=== PATIENT | male | born 1980 | race Caucasian/White ===

== ENCOUNTER 2016-11-05 21:50 | Observation (INO) | payer MEDICARE, MEDICAID ==
--- NOTE | 2016-11-05 22:40 | EDM.PDOC ---
ED HPI GENERAL MEDICAL PROBLEM - General Chief Complaint: General Stated Complaint: Redness in right leg fever headache Time Seen by Provider: 11/05/16 22:30 - History of Present Illness INITIAL COMMENTS - FREE TEXT/NARRATIVE: 36-year-old presents emergency room with a warm swollen right lower leg. This started Sunday night and has progressively gotten worse the patient has pimples on his legs he scratches on a regular basis. He has had some fevers at home but is unsure how high as they were not measured. The patient has noticed increased redness and swelling involving the right lower leg. He has not had any breathing difficulties or shortness of breath. 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 The patient is to be using compression hose on his lower extremities however he has not been doing this. Headache Pain Score (Numeric/FACES): 9 - Related Data Allergies Allergy/AdvReac Type Severity Reaction Status Date / Time carbetapentane citrate Allergy Other Verified 03/12/16 01:19 [From Gentex 30] egg yolk Allergy Other Verified 03/12/16 01:19 guaifenesin [From Gentex 30] Allergy Other Verified 03/12/16 01:19 kiwi Allergy Other Verified 03/12/16 01:19 phenylephrine HCl Allergy Other Verified 03/12/16 01:19 [From Gentex 30] strawberry Allergy Other Verified 03/12/16 01:19 "anesthesia" Allergy Other Uncoded 03/12/16 01:19 nuts Allergy Rectal Uncoded 03/12/16 01:20 Bleeding Home Meds: Home Meds Acetaminophen [Tylenol Extra Strength] 500 mg PO Q4H PRN 11/05/16 [History] Calcium Carbonate [Calcium] 600 mg PO BID 11/05/16 [History] Fish Oil/[place]-3 Fatty Acids [Fish Oil 1,000 MG] 1,000 mg PO BEDTIME 11/05/16 [ History] Fluticasone/Salmeterol [Advair 250-50 Diskus] 1 - 2 puff INH BID 11/05/16 [ History] Folic Acid 1 mg PO DAILY 11/05/16 [History] Levalbuterol Tartrate [Xopenex Hfa] 1 - 2 puff INH ASDIRECTED 11/05/16 [History] Losartan/Hydrochlorothiazide [Losartan-HCTZ 50-12.5 MG] 1 tab PO DAILY 11/05/16 [History] PARoxetine [Paxil] 20 mg PO DAILY 11/05/16 [History] Simethicone 125 mg PO ASDIRECTED 11/05/16 [History] Ubidecarenone [Coq10] 100 mg PO BEDTIME 11/05/16 [History] Past Medical History Cardiovascular History: Reports: Heart Murmur, High Cholesterol, Hypertension Respiratory History: Reports: Asthma Gastrointestinal History: Reports: Colon Polyp, Irritable Bowel Syndrome Psychiatric History: Reports: Anxiety Dermatologic History: Reports: Psoriasis - Infectious Disease History Infectious Disease History: Reports: Chicken Pox - Past Surgical History HEENT Surgical History: Reports: Adenoidectomy, Myringotomy w Tube(s) Social & Family History - Tobacco Use Smoking Status *Q: Never Smoker Second Hand Smoke Exposure: No - Caffeine Use Caffeine Use: Reports: Soda, Tea - Alcohol Use Days Per Week of Alcohol Use: 0 - Recreational Drug Use Recreational Drug Use: No ED ROS GENERAL - Review of Systems Review Of Systems: See Below Constitutional: Reports: Fever. Denies: Chills, Diaphoresis HEENT: Reports: No Symptoms Respiratory: Reports: No Symptoms Cardiovascular: Reports: No Symptoms GI/Abdominal: Reports: No Symptoms : Reports: No Symptoms ED EXAM, GENERAL - Physical Exam Exam: See Below Exam Limited By: No Limitations General Appearance: Alert, No Apparent Distress, Other (Morbidly obese) Head: Atraumatic, Normocephalic Neck: Normal Inspection, Supple, Non-Tender, Full Range of Motion. No: Lymphadenopathy (L), Lymphadenopathy (R) Respiratory/Chest: No Respiratory Distress, Lungs Clear, Normal Breath Sounds Cardiovascular: Regular Rate, Rhythm, Other (1+ pitting edema bilateral lower extremity) GI/Abdominal: Normal Bowel Sounds, Soft, Non-Tender Back Exam: Normal Inspection. No: CVA Tenderness (L), CVA Tenderness (R) Extremities: Other (Patient is morbidly obese with very large extremities he has 1+ pitting edema noted bilaterally in both lower legs the right leg has significant erythema multiple excoriations over what could have been inflamed follicles it is hard to know for sure no deep calf tenderness in the) Neurological: Alert, Oriented, No Motor/Sensory Deficits (Other than his Collazo's palsy) Course - Vital Signs Last Recorded V/S: Last Vital Signs Temp 36.6 C 11/05/16 22:04 Pulse 107 H 11/05/16 22:04 Resp 20 11/05/16 22:04 BP 123/74 11/05/16 22:04 Pulse Ox 95 11/05/16 22:04 - Orders/Labs/Meds Orders: Active Orders 24 hr Category Date Time Status VANCOMYCIN TROUGH [CHEM] Timed Lab 11/06/16 17:30 Ordered Vancomycin 1 gm Med 11/06/16 02:00 Active Vancomycin 500 mg Sodium Chloride 0.9% [Normal Saline] 500 ml IV Q8H Vancomycin Pharmacy to Dose [Pharmacy to Dose - Med 11/06/16 00:45 Pending Vancomycin] 1 dose .XX ASDIRECTED Medication Orders Vancomycin HCl 1 gm/Vancomycin HCl 500 mg/ Sodium Chloride 500 mls @ 333 mls/ hr IV Q8H [facility] Last Admin: 11/06/16 02:07 Dose: 333 mls/hr Vancomycin HCl (Pharmacy To Dose - Vancomycin) 1 dose .XX ASDIRECTED [facility] Labs: Laboratory Tests 11/05/16 11/05/16 Range/Units 23:18 23:18 WBC 22.15 H (4.23-9.07) K/mm3 RBC 4.69 (4.63-6.08) M/mm3 Hgb 13.9 (13.7-17.5) gm/L Hct 42.3 (40.1-51.0) % MCV 90.2 (79.0-92.2) fl MCH 29.6 (25.7-32.2) pg MCHC 32.9 (32.2-35.5) g/dl RDW Std Deviation 47.0 H (35.1-43.9) fL Plt Count 195 (163-337) K/mm3 MPV 9.5 (9.4-12.3) fl Neutrophils % (Manual) 88 H (40-60) % Band Neutrophils % 0 (0-10) % Lymphocytes % (Manual) 6 L (20-40) % Atypical Lymphs % 2 % Monocytes % (Manual) 4 (2-10) % Eosinophils % (Manual) 0 L (0.8-7.0) % Basophils % (Manual) 0 L (0.2-1.2) Platelet Estimate Adequate Plt Morphology Comment Normal Polychromasia 1+ slight Hypochromasia 1+ slight Poikilocytosis 1+ slight Anisocytosis 1+ slight Microcytosis 1+ slight Macrocytosis 1+ slight Tear Drop Cells 1+ slight RBC Morph Comment Abnormal Sodium 138 (136-145) mEq/L Potassium 3.5 (3.5-5.1) mEq/L Chloride 103 (98-107) mEq/L Carbon Dioxide 29 (21-32) mEq/L Anion Gap 9.5 (5-15) BUN 10 (7-18) mg/dL Creatinine 1.3 (0.7-1.3) mg/dL Est Cr Clr Drug Dosing 63.22 mL/min Estimated GFR (MDRD) > 60 (>60) mL/min BUN/Creatinine Ratio 7.7 L (14-18) Glucose 112 H (74-106) mg/dL Calcium 8.6 (8.5-10.1) mg/dL Total Bilirubin 0.6 (0.2-1.0) mg/dL AST 19 (15-37) U/L ALT 30 (16-63) U/L Alkaline Phosphatase 59 (46-116) U/L Total Protein 7.3 (6.4-8.2) g/dl Albumin 2.9 L (3.4-5.0) g/dl Globulin 4.4 gm/dL Albumin/Globulin Ratio 0.7 L (1-2) Meds: Medications Generic Name Dose Route Start Last Admin Trade Name Freq PRN Reason Stop Dose Admin Vancomycin HCl 1 gm/ 500 mls @ 333 mls/hr 11/06/16 02:00 11/06/16 02:07 Vancomycin HCl 500 mg/ Sodium IV 333 mls/hr Chloride Q8H BECK Administration Vancomycin HCl 1 dose 11/06/16 00:45 Pharmacy To Dose - Vancomycin .XX ASDIRECTED BECK Discontinued Medications Generic Name Dose Route Start Last Admin Trade Name Freq PRN Reason Stop Dose Admin Sodium Chloride Confirm 11/06/16 01:44 11/06/16 02:08 Normal Saline Administered 11/06/16 01:45 Not Given Dose 250 mls @ as directed .ROUTE .STK-MED ONE Ondansetron HCl 4 mg 11/06/16 01:51 11/06/16 02:06 Zofran IVPUSH 11/06/16 01:52 4 mg ONETIME ONE Administration Vancomycin HCl Confirm 11/06/16 01:42 11/06/16 02:08 Vancocin Administered 11/06/16 01:43 Not Given Dose 1 gm .ROUTE .STK-MED ONE - Re-Assessments/Exams Free Text/Narrative Re-Assessment/Exam: 11/06/16 02:00 Patient will be placed on observation, reviewed with . I attempted to see if every 24 dosing of the vancomycin would be practical pharmacy recommended 8 hour dosing. Departure - Departure Time of Disposition: 02:51 Disposition: Refer to Observation Clinical Impression: Cellulitis of right leg - Discharge Information Forms: ED Department Discharge - My Orders Last 24 Hours: My Active Orders 11/06/16 00:45 Vancomycin Pharmacy to Dose [Pharmacy to Dose - Vancomycin] 1 dose .XX ASDIRECTED 11/06/16 02:00 Vancomycin 1 gm Vancomycin 500 mg Sodium Chloride 0.9% [Normal Saline] 500 ml IV Q8H - Assessment/Plan Last 24 Hours: My Active Orders 11/06/16 00:45 Vancomycin Pharmacy to Dose [Pharmacy to Dose - Vancomycin] 1 dose .XX ASDIRECTED 11/06/16 02:00 Vancomycin 1 gm Vancomycin 500 mg Sodium Chloride 0.9% [Normal Saline] 500 ml IV Q8H
[2016-11-06] MEDS ORDERED: Vancomycin 1 GM AdvVial ONE (01:42)
[2016-11-06] MEDS ORDERED: Sodium Chloride 0.9% 250 ML ONE (01:44)
[2016-11-06] MEDS ORDERED: Ondansetron 4 MG/2 ML SDV IVPUSH ONE (01:51)
[2016-11-06] MEDS ORDERED: Vancomycin 1500 MG in Sodium Chloride 0.9% 500 ML IV SCH ×3 (02:00)
[2016-11-06] MEDS ORDERED: Acetaminophen 325 MG Tab PO ONE (02:59)
[2016-11-06] MEDS ORDERED: Ondansetron 4 MG/2 ML SDV IVPUSH PRN (03:59)
[2016-11-06] MEDS: Sodium Chloride 0.9% 1,000 ML IV SCH ×2 (04:12→18:00)
[2016-11-06] MEDS ORDERED: Acetaminophen 325 MG Tab PO PRN (04:19)
--- NOTE | 2016-11-06 06:35 | PCM.HP ---
H&P History of Present Illness - General Date of Service: 11/06/16 Admit Problem/Dx: SSTI/Cellulitis Source of Information: Patient, Provider, RN Notes Reviewed History Limitations: Reports: No Limitations - History of Present Illness Initial Comments - Free Text/Narative: This is a 36-year-old morbidly obese white male with past medical history of hypertension, hyperlipidemia, asthma, history of colonic polyp, irritable bowel syndrome, anxiety, psoriasis, and history of Collazo's palsy who comes in with worsening right lower leg edema and erythema. His symptoms started last Sunday night and have progressively gotten worse. Patient has multiple coin-like lesions on both lower extremity. He picks on it a regular basis. He admits to some subjective fever without chills. He denies any systemic symptoms. 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 His initial workup in the emergency department shows a CBC remarkable for WBC of 22.15 and neutrophils of 88%. His chemistry is remarkable for glucose of 112 and albumin of 2.9. Patient received initial treatment in the emergency department before he was sent to the floor for further treatment. He was admitted overnight under OBS for medical management of skin-soft tissue infection. Headache Pain Score (Numeric/FACES): 9 - Related Data Allergies/Adverse Reactions: Allergies Allergy/AdvReac Type Severity Reaction Status Date / Time carbetapentane citrate Allergy Other Verified 03/12/16 01:19 [From Gentex 30] egg yolk Allergy Other Verified 03/12/16 01:19 Fish Containing Products Allergy Other Verified 11/06/16 04:38 guaifenesin [From Gentex 30] Allergy Other Verified 03/12/16 01:19 kiwi Allergy Other Verified 03/12/16 01:19 phenylephrine HCl Allergy Other Verified 03/12/16 01:19 [From Gentex 30] pineapple Allergy Difficulty Verified 11/06/16 04:38 Breathing strawberry Allergy Other Verified 03/12/16 01:19 "anesthesia" Allergy Other Uncoded 03/12/16 01:19 gentamycin Allergy Other Uncoded 11/06/16 04:38 nuts Allergy Rectal Uncoded 03/12/16 01:20 Bleeding red/blue/green coloring Allergy Other Uncoded 11/06/16 04:38 Home Medications: Home Meds Acetaminophen [Tylenol Extra Strength] 500 mg PO Q4H PRN 11/05/16 [History] Calcium Carbonate [Calcium] 600 mg PO BID 11/05/16 [History] Fish Oil/[place]-3 Fatty Acids [Fish Oil 1,000 MG] 1,000 mg PO BEDTIME 11/05/16 [ History] Fluticasone/Salmeterol [Advair 250-50 Diskus] 1 - 2 puff INH BID 11/05/16 [ History] Folic Acid 1 mg PO DAILY 11/05/16 [History] Levalbuterol Tartrate [Xopenex Hfa] 1 - 2 puff INH ASDIRECTED 11/05/16 [History] Losartan/Hydrochlorothiazide [Losartan-HCTZ 50-12.5 MG] 1 tab PO DAILY 11/05/16 [History] PARoxetine [Paxil] 20 mg PO DAILY 11/05/16 [History] Simethicone 125 mg PO ASDIRECTED 11/05/16 [History] Ubidecarenone [Coq10] 100 mg PO BEDTIME 11/05/16 [History] Cholecalciferol (Vitamin D3) [Vitamin D] 50,000 units PO WEEKLY 11/06/16 [ History] Docusate Sodium [Colace] 100 mg PO BID 11/06/16 [History] Omeprazole 20 mg PO DAILY 11/06/16 [History] Past Medical History Cardiovascular History: Reports: Heart Murmur, High Cholesterol, Hypertension Respiratory History: Reports: Asthma Gastrointestinal History: Reports: Colon Polyp, Irritable Bowel Syndrome Psychiatric History: Reports: Anxiety Dermatologic History: Reports: Psoriasis - Infectious Disease History Infectious Disease History: Reports: Chicken Pox - Past Surgical History HEENT Surgical History: Reports: Adenoidectomy, Myringotomy w Tube(s), Other ( See Below) Other HEENT Surgeries/Procedures: reconstructive ear surgeries and wisdom teeth removal GI Surgical History: Reports: None Dermatological Surgical History: Reports: None Social & Family History - Family History Family Medical History: Noncontributory - Tobacco Use Smoking Status *Q: Never Smoker Second Hand Smoke Exposure: No - Caffeine Use Caffeine Use: Reports: Soda, Tea Other Caffeine Use: on occassion pop - Alcohol Use Days Per Week of Alcohol Use: 0 - Recreational Drug Use Recreational Drug Use: No H&P Review of Systems - Review of Systems: Review Of Systems: See Below General: Reports: Fever. Denies: Chills, Weakness HEENT: Reports: No Symptoms Pulmonary: Denies: Shortness of Breath Cardiovascular: Denies: Chest Pain Gastrointestinal: Denies: Abdominal Pain, Nausea, Vomiting Genitourinary: Reports: No Symptoms Musculoskeletal: Reports: No Symptoms Skin: Reports: Rash, Erythema, Lesions Psychiatric: Denies: Confusion, Depression, Anxiety, Hallucinations, Suicidal Ideation Neurological: Reports: Confusion. Denies: Difficulty Walking, Weakness, Gait Disturbance Hematologic/Lymphatic: Reports: No Symptoms Immunologic: Reports: No Symptoms Exam - Exam Exam: See Below - Vital Signs Vital Signs: Last Vital Signs Temp 36.9 C 11/06/16 04:06 Pulse 89 11/06/16 04:06 Resp 20 11/06/16 04:06 BP 127/72 11/06/16 04:06 Pulse Ox 94 L 11/06/16 04:06 Weight: 166.559 kg - Exam General: Alert, Oriented, Cooperative, Other (Morbidly Obese). No: Mild Distress HEENT: Conjunctiva Clear, EACs Clear, EOMI, Hearing Intact, Mucosa Moist & [place] , Nares Patent, Normal Nasal Septum, Posterior Pharynx Clear, Pupils Equal, Pupils Reactive Neck: Supple, Trachea Midline, Full Range of Motion, Other (short and thick) Lungs: Clear to Auscultation, Normal Respiratory Effort Cardiovascular: Regular Rate, Regular Rhythm Abdomen: Normal Bowel Sounds, Soft. No: Organomegaly, Tenderness (Male) Exam: Deferred Rectal (Males) Exam: Deferred Back Exam: Normal Inspection, Decreased Range of Motion Extremities: Normal Pulses, Edema (mild), Increased Warmth. No: Clubbing, Cyanosis, Calf Tenderness Peripheral Pulses: 2+: Posterior Tibial (L), Posterior Tibial (R), Dorsalis Pedis (L), Dorsalis Pedis (R) Skin: Warm, Dry, Intact, Rash, Other (no obvious open wounds) Skin Alteration Location (Drawings Not To Scale): 1 - erythema, excoriations, and multiple coin size lesions 2 - erythema, excoriations, and multiple coin size lesions Neuro Extensive - Mental Status: Normal Cognition, Memory Intact Neuro Extensive - Motor, Sensory, Reflexes: CN II-XII Intact (limited but intact ), Abnormal Gait Psychiatric: Alert, Normal Affect, Normal Mood - Patient Data Result Diagrams: 11/06/16 07:05 11/06/16 07:05 *Q Meaningful Use (ADM) - VTE *Q VTE Criteria *Q: - Stroke *Q Stroke Criteria *Q: - AMI *Q AMI Criteria *Q: Problem List Initiated/Reviewed/Updated: Yes Orders Last 24hrs: Active Orders 24 hr Category Date Time Status RT Post Treatment Assessment [RC] Click To Edit Care 11/06/16 04:20 Hold RT Pre-Treatment Assessment [RC] Click To Edit Care 11/06/16 04:20 Hold Up With Assistance [RC] CONTINUOUS Care 11/06/16 03:52 Active Clear Liquid Diet [DIET] Diet 11/06/16 Breakfast Active Acetaminophen [Tylenol] Med 11/06/16 04:19 Active 975 mg PO Q6H PRN Fluticasone/Salmeterol [Advair Diskus 250-50] Med 11/06/16 09:00 Active 1 puff INH BID Non-Formulary Medication [NF Drug] Med 11/06/16 09:00 Active 1 each PO DAILY Ondansetron [Zofran] Med 11/06/16 03:59 Active 4 mg IVPUSH Q4HR PRN PARoxetine [Paxil] Med 11/06/16 09:00 Active 20 mg PO DAILY Sodium Chloride 0.9% [Normal Saline] 1,000 ml Med 11/06/16 04:00 Active IV ASDIRECTED Heat Therapy [OM.PC] Routine Oth 11/06/16 03:53 Ordered Resuscitation Status Routine Resus Stat 11/06/16 03:51 Ordered Medication Orders Acetaminophen (Tylenol) 975 mg PO Q6H PRN PRN Reason: Pain (moderate 4-6) Sodium Chloride (Normal Saline) 1,000 mls @ 75 mls/hr IV ASDIRECTED BECK Last Admin: 11/06/16 04:12 Dose: 75 mls/hr Losartan/Hctz 50-12. (5mg Pt Own) 1 each PO DAILY BECK Ondansetron HCl (Zofran) 4 mg IVPUSH Q4HR PRN PRN Reason: Nausea/Vomiting Paroxetine HCl (Paxil) 20 mg PO DAILY [facility] Fluticasone/Salmeterol (Advair Diskus 250-50) 1 puff INH BID BECK Vancomycin HCl (Pharmacy To Dose - Vancomycin) 1 dose .XX ASDIRECTED [facility] Assessment/Plan Comment:: Assessment/Plan: Acute: Right Lower Leg SST/Cellulitis - Supportive Care - IV Vancomycin 1 gram TID for pharmacy to dose Leukocytosis - WBC is 22.15 ---> 19.50 - CRP 34.1 Hypokalemia - K 3.3 likely from inadequate intake Hyperglycemia - Will screen for DM Morbidly Obese - BMI 65 - TFT today - Dietary consult for weight management Chronic: HTN HLD Asthma Colonic Polyp IBS Anxiety Psoriasis 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
[2016-11-06] MEDS ORDERED: Albuterol/Ipratropium 3.0-0.5 MG/3 ML Neb Soln NEB PRN (06:39)
[2016-11-06] MEDS ORDERED: Docusate Sodium 100 MG Cap PO PRN (06:39)
[2016-11-06] MEDS ORDERED: Polyethylene Glycol 3350 Powder 17 GM Packet PO PRN (06:39)
[2016-11-06] MEDS ORDERED: LORazepam 2 MG/ML MDV IV PRN (06:39)
[2016-11-06] MEDS ORDERED: Promethazine 12.5 MG in Sodium Chloride 0.9% 50 ML IV PRN (06:39)
[2016-11-06] MEDS ORDERED: HYDROmorphone 1 MG/ML Syringe IVPUSH PRN (06:39)
[2016-11-06] MEDS ORDERED: Temazepam 15 MG Cap PO PRN (06:39)
[2016-11-06] MEDS ORDERED: Ondansetron 4 MG/2 ML SDV IV PRN (06:39)
[2016-11-06] MEDS ORDERED: Bisacodyl 5 MG Tab PO PRN (06:39)
[2016-11-06] MEDS ORDERED: SIMETHICONE 125 MG PO SCH (06:45)
[2016-11-06] MEDS ORDERED: LEVALBUTEROL TARTRATE INH SCH (06:45)
[2016-11-06] MEDS ORDERED: Metoprolol Tartrate 5 MG/5 ML SDV IVPUSH PRN (08:55)
[2016-11-06] MEDS ORDERED: hydrALAZINE 20 MG/ML SDV IVPUSH PRN (08:55)
[2016-11-06] MEDS ORDERED: LOSARTAN PO SCH (09:00)
[2016-11-06] MEDS ORDERED: FLUTICASONE INH SCH (09:00)
[2016-11-06] MEDS ORDERED: SALMETEROL INH SCH (09:00)
[2016-11-06] MEDS ORDERED: Hydrochlorothiazide 12.5 MG Cap PO SCH (09:00)
[2016-11-06] MEDS ORDERED: Non-Formulary Medication 1 Each (Losartan/Hydrochlorothiazide 1 TAB) PO SCH (09:00)
[2016-11-06] MEDS ORDERED: Enoxaparin 40 MG/0.4 ML Syringe SUBCUT SCH (09:00)
[2016-11-06] MEDS ORDERED: PAROXETINE 20 MG PO SCH ×2 (09:00)
[2016-11-06] MEDS ORDERED: HCTZ PO SCH (09:00)
[2016-11-06] MEDS ORDERED: Magnesium Oxide 400 MG Tab PO ONE (09:15)
[2016-11-06] MEDS: Potassium Chloride 20 MEQ Tab.ER PO SCH ×2 (09:51→14:05)
[2016-11-06] MEDS ORDERED: Temazepam 30 MG Cap PO PRN (10:13)
[2016-11-06] MEDS: DOCUSATE SODIUM 100 MG PO SCH ×2 (10:46→21:18)
[2016-11-06] MEDS: Vancomycin 1500 MG in Sodium Chloride 0.9% 500 ML IV SCH ×6 (10:46→19:33)
[2016-11-06] MEDS: CALCIUM CARBONATE 600 MG PO SCH ×2 (10:46→21:18)
[2016-11-06] MEDS: Omeprazole [Omeprazole] 20 MG PO SCH ×3 (10:47→17:54)
[2016-11-06] MEDS: FOLIC ACID 1 MG PO SCH (10:47)
[2016-11-06] MEDS: HCTZ PO SCH (10:56)
[2016-11-06] MEDS: LOSARTAN PO SCH (10:56)
[2016-11-06] MEDS: FLUTICASONE INH SCH ×2 (13:55→20:51)
[2016-11-06] MEDS: SALMETEROL INH SCH ×2 (13:55→20:51)
[2016-11-06] MEDS ORDERED: HYDROmorphone 0.5 MG/0.5 ML Syringe IVPUSH PRN (14:53)
[2016-11-06] MEDS: Enoxaparin 40 MG/0.4 ML Syringe SUBCUT SCH (21:17)
[2016-11-06] MEDS: UBIDECARENONE 100 MG PO SCH (21:18)
[2016-11-06] MEDS: FISH OIL PO SCH (21:18)
[2016-11-06] MEDS: OMEGA PO SCH (21:18)
[2016-11-06] MEDS: FATTY ACIDS PO SCH (21:18)
[2016-11-06] MEDS ORDERED: SIMETHICONE 125 MG PO PRN (23:02)
[2016-11-06] MEDS: Acetaminophen/HYDROcodone 325-5 MG Tab PO PRN (23:42)
[2016-11-07] MEDS: Vancomycin 1500 MG in Sodium Chloride 0.9% 500 ML IV SCH ×9 (01:58→18:14)
--- NOTE | 2016-11-07 07:37 | PCM.PN ---
- General Info Date of Service: 11/07/16 Admission Dx/Problem (Free Text): SSTI/Cellulitis Subjective Update: Follow Up Functional Status: Reports: pain controlled, tolerating diet, ambulating, urinating. Denies: new symptoms - Review of Systems General: Reports: Weakness. Denies: Fever, Chills HEENT: Reports: no symptoms Pulmonary: Denies: shortness of breath Cardiovascular: Denies: Chest Pain Gastrointestinal: Denies: Abdominal pain, Nausea, Vomiting Genitourinary: Reports: no symptoms Musculoskeletal: Reports: no symptoms Skin: Reports: rash Neurological: Denies: Confusion, Dizziness, Trouble Speaking, Weakness, Gait Disturbance Psychiatric: Reports: no symptoms Systems Review Comment:: No overnight or acute issues. He had a headache last night but now gone. He is doing just fine. - Patient Data Vitals - most recent: Last Vital Signs Temp 36.4 C 11/07/16 04:03 Pulse 80 11/07/16 04:03 Resp 20 11/07/16 04:03 BP 129/65 11/07/16 04:03 Pulse Ox 94 L 11/07/16 04:03 Weight - most recent: 167.33 kg I&O - last 24 hours: Intake & Output 11/06/16 11/07/16 11/07/16 22:59 06:59 14:59 Intake Total 2402 2547 Output Total 950 950 Balance 1452 1597 Lab Results last 24 hrs: Laboratory Results - last 24 hr 11/06/16 11/06/16 11/06/16 Range/Units 07:05 07:05 17:40 WBC (4.23-9.07) K/mm3 RBC (4.63-6.08) M/mm3 Hgb (13.7-17.5) gm/L Hct (40.1-51.0) % MCV (79.0-92.2) fl MCH (25.7-32.2) pg MCHC (32.2-35.5) g/dl RDW Std Deviation (35.1-43.9) fL Plt Count (163-337) K/mm3 MPV (9.4-12.3) fl Neut % (Auto) (34.0-67.9) % Lymph % (Auto) (21.8-53.1) % Bartholomew % (Auto) (5.3-12.2) % Eos % (Auto) (0.8-7.0) Baso % (Auto) (0.1-1.2) % Neut # (Auto) (1.78-5.38) K/mm3 Lymph # (Auto) (1.32-3.57) K/mm3 Bartholomew # (Auto) (0.30-0.82) K/mm3 Eos # (Auto) (0.04-0.54) K/mm3 Baso # (Auto) (0.01-0.08) K/mm3 Manual Slide Review Sodium 140 (136-145) mEq/L Potassium 3.3 L (3.5-5.1) mEq/L Chloride 103 (98-107) mEq/L Carbon Dioxide 27 (21-32) mEq/L Anion Gap 13.3 (5-15) BUN 10 (7-18) mg/dL Creatinine 1.2 (0.7-1.3) mg/dL Est Cr Clr Drug Dosing 68.49 mL/min Estimated GFR (MDRD) > 60 (>60) mL/min BUN/Creatinine Ratio 8.3 L (14-18) Glucose 107 H (74-106) mg/dL Hemoglobin A1c 6.30 H (4.50-6.20) % Calcium 8.4 L (8.5-10.1) mg/dL Magnesium 1.8 (1.8-2.4) mg/dl C-Reactive Protein 34.1 H* (<1.0) mg/dL Triglycerides (<150) mg/dL Cholesterol (<200) mg/dL LDL Cholesterol Direct (<100) mg/dL HDL Cholesterol (40-59) mg/dL Free T4 1.18 (0.76-1.46) ng/dL TSH 3rd Generation 1.975 (0.358-3.74) uIU/mL Vancomycin Trough 13.3 (10.0-20.0) 11/07/16 11/07/16 Range/Units 06:35 06:35 WBC 9.87 H (4.23-9.07) K/mm3 RBC 4.16 L (4.63-6.08) M/mm3 Hgb 12.3 L (13.7-17.5) gm/L Hct 38.4 L (40.1-51.0) % MCV 92.3 H (79.0-92.2) fl MCH 29.6 (25.7-32.2) pg MCHC 32.0 L (32.2-35.5) g/dl RDW Std Deviation 48.8 H (35.1-43.9) fL Plt Count 207 (163-337) K/mm3 MPV 9.3 L (9.4-12.3) fl Neut % (Auto) 65.6 (34.0-67.9) % Lymph % (Auto) 26.3 (21.8-53.1) % Bartholomew % (Auto) 5.8 (5.3-12.2) % Eos % (Auto) 1.5 (0.8-7.0) Baso % (Auto) 0.5 (0.1-1.2) % Neut # (Auto) 6.47 H (1.78-5.38) K/mm3 Lymph # (Auto) 2.60 (1.32-3.57) K/mm3 Bartholomew # (Auto) 0.57 (0.30-0.82) K/mm3 Eos # (Auto) 0.15 (0.04-0.54) K/mm3 Baso # (Auto) 0.05 (0.01-0.08) K/mm3 Manual Slide Review Normal smear Sodium 139 (136-145) mEq/L Potassium 3.3 L (3.5-5.1) mEq/L Chloride 105 (98-107) mEq/L Carbon Dioxide 25 (21-32) mEq/L Anion Gap 12.3 (5-15) BUN 10 (7-18) mg/dL Creatinine 1.0 (0.7-1.3) mg/dL Est Cr Clr Drug Dosing 82.19 mL/min Estimated GFR (MDRD) > 60 (>60) mL/min BUN/Creatinine Ratio 10.0 L (14-18) Glucose 111 H (74-106) mg/dL Hemoglobin A1c (4.50-6.20) % Calcium 8.0 L (8.5-10.1) mg/dL Magnesium 1.8 (1.8-2.4) mg/dl C-Reactive Protein (<1.0) mg/dL Triglycerides 144 (<150) mg/dL Cholesterol 149 (<200) mg/dL LDL Cholesterol Direct 108 H* (<100) mg/dL HDL Cholesterol 29.0 L (40-59) mg/dL Free T4 (0.76-1.46) ng/dL TSH 3rd Generation (0.358-3.74) uIU/mL Vancomycin Trough (10.0-20.0) Med Orders - Current: Current Medications Acetaminophen (Tylenol) 975 mg PO Q6H PRN PRN Reason: Pain (moderate 4-6) Hydrocodone Bitart/Acetaminophen ([place] 325-5 Mg) 1 tab PO Q4H PRN PRN Reason: Pain (moderate 4-6) Last Admin: 11/06/16 23:42 Dose: 1 tab Albuterol/Ipratropium (Duoneb 3.0-0.5 Mg/3 Ml) 3 ml NEB Q4H PRN PRN Reason: Shortness Of Breath/wheezing Bisacodyl (Dulcolax) 5 mg PO DAILY PRN PRN Reason: Constipation Docusate Sodium (Colace) 100 mg PO BID PRN PRN Reason: Constipation Enoxaparin Sodium (Lovenox) 40 mg SUBCUT Q12HR [facility] Last Admin: 11/06/16 21:17 Dose: 40 mg Hydralazine HCl (Apresoline) 20 mg IVPUSH Q4H PRN PRN Reason: Hypertension Hydromorphone HCl (Dilaudid) 0.25 mg IVPUSH Q2H PRN PRN Reason: Pain (severe 7-10) Sodium Chloride (Normal Saline) 1,000 mls @ 75 mls/hr IV ASDIRECTED [facility] Last Admin: 11/06/16 18:00 Dose: 75 mls/hr Promethazine HCl 12.5 mg/ (Sodium Chloride) 50.5 mls @ 100 mls/hr IV Q6H PRN PRN Reason: Nausea/Vomiting Vancomycin HCl 1 gm/Vancomycin HCl 500 mg/ Sodium Chloride 500 mls @ 333 mls/ hr IV Q8H [facility] Last Admin: 11/07/16 01:58 Dose: 333 mls/hr Lorazepam (Ativan) 1 mg IV Q6H PRN PRN Reason: Anxiety Magnesium Sulfate (Pharmacy To Dose - Magnesium Replacement) 1 dose .XX ASDIRECTED [facility] Metoprolol Tartrate (Lopressor) 5 mg IVPUSH Q4H PRN PRN Reason: Tachycardia Ondansetron HCl (Zofran) 4 mg IVPUSH Q4HR PRN PRN Reason: Nausea/Vomiting Calcium Carbonate [ (Calcium] 600 Mg) 0 each PO BID [facility] Last Admin: 11/06/16 21:18 Dose: 1 each Cholecalciferol ( Vitamin D3) [Vitamin D] 50,000 Units 0 each PO We BECK Docusate Sodium [ (Colace] 100 Mg) 0 each PO BID [facility] Last Admin: 11/06/16 21:18 Dose: 1 each Fish Oil/[place]-3 Fatty Acids [Fish Oil 1,000 Mg] 1,000 Mg 0 each PO BEDTIME [facility] Last Admin: 11/06/16 21:18 Dose: 1 each Fluticasone/Salmeterol [Advair 250-50 Diskus] 0 Puff 1 - 2 each INH BID [facility] Last Admin: 11/06/16 20:51 Dose: 1 each Levalbuterol Tartrate [Xopenex Hfa] 0 Puff 1 - 2 each INH ASDIRECTED BECK Ubidecarenone [Coq10 (] 100 Mg) 0 each PO BEDTIME [facility] Last Admin: 11/06/16 21:18 Dose: 1 each Folic Acid 1 Mg Tab. 0 each PO DAILY [facility] Last Admin: 11/06/16 10:47 Dose: 1 each Paroxetine 20 Mg Tab 20 each PO DAILY [facility] Last Admin: 11/06/16 10:58 Dose: 20 each Losartan/Hctz 50-12. (5mg) 0 each PO DAILY [facility] Last Admin: 11/06/16 10:56 Dose: 1 each Omeprazole [ (Omeprazole] 20 Mg) 0 each PO DAILY@1700 [facility] Last Admin: 11/06/16 17:54 Dose: 1 each Simethicone [ (Simethicone] 125 Mg) 0 each PO ASDIRECTED PRN PRN Reason: GAS Last Admin: 11/06/16 23:39 Dose: 1 each Polyethylene Glycol (Miralax) 17 gm PO DAILY PRN PRN Reason: Constipation Potassium Chloride (Pharmacy To Dose - Potassium Replacement) 1 dose .XX ASDIRECTED BECK Senna/Docusate Sodium (Senna Plus) 1 tab PO BID PRN PRN Reason: Constipation Temazepam (Restoril) 30 mg PO BEDTIME PRN PRN Reason: Sleep Vancomycin HCl (Pharmacy To Dose - Vancomycin) 1 dose .XX Q24H [facility] Last Admin: 11/06/16 10:51 Dose: Not Given Discontinued Medications Acetaminophen (Tylenol) 1,000 mg PO NOW ONE Stop: 11/06/16 03:00 Last Admin: 11/06/16 03:07 Dose: 1,000 mg Enoxaparin Sodium (Lovenox) 40 mg SUBCUT DAILY [facility] Last Admin: 11/06/16 09:50 Dose: 40 mg Hydrochlorothiazide (Hydrochlorothiazide) 12.5 mg PO DAILY [facility] Hydromorphone HCl (Dilaudid) 0.25 mg IVPUSH Q2H PRN PRN Reason: Pain (severe 7-10) Vancomycin HCl 1 gm/Vancomycin HCl 500 mg/ Sodium Chloride 500 mls @ 333 mls/ hr IV Q8H [facility] Last Admin: 11/06/16 02:07 Dose: 333 mls/hr Sodium Chloride (Normal Saline) Confirm Administered Dose 250 mls @ as directed .ROUTE .STK-MED ONE Stop: 11/06/16 01:45 Last Admin: 11/06/16 02:08 Dose: Not Given Magnesium Oxide (Magnesium Oxide) 400 mg PO ONETIME ONE Stop: 11/06/16 09:16 Last Admin: 11/06/16 09:50 Dose: 400 mg Losartan/Hctz 50-12. (5mg Pt Own) 1 each PO DAILY [facility] Last Admin: 11/06/16 10:55 Dose: Not Given Non-Formulary Medication (Losartan/Hydrochlorothiazide) 1 tab PO DAILY [facility] Last Admin: 11/06/16 10:55 Dose: Not Given Non-Formulary Medication (Paroxetine [Paxil]) 20 mg PO DAILY [facility] Last Admin: 11/06/16 10:56 Dose: Not Given Ondansetron HCl (Zofran) 4 mg IVPUSH ONETIME ONE Stop: 11/06/16 01:52 Last Admin: 11/06/16 02:06 Dose: 4 mg Ondansetron HCl (Zofran) 4 mg IV Q6H PRN PRN Reason: Nausea/Vomiting Paroxetine HCl (Paxil) 20 mg PO DAILY [facility] Last Admin: 11/06/16 10:56 Dose: Not Given Omeprazole [ (Omeprazole] 20 Mg) 0 each PO DAILY [facility] Last Admin: 11/06/16 10:53 Dose: Not Given Simethicone [ (Simethicone] 125 Mg) 0 each PO ASDIRECTED [facility] Potassium Chloride (Klor-Con M20) 40 meq PO Q4H [facility] Stop: 11/06/16 13:16 Last Admin: 11/06/16 14:05 Dose: 40 meq Fluticasone/Salmeterol (Advair Diskus 250-50) 1 puff INH BID [facility] Last Admin: 11/06/16 08:29 Dose: 1 puff Temazepam (Restoril) 30 mg PO BEDTIME PRN PRN Reason: Sleep Vancomycin HCl (Pharmacy To Dose - Vancomycin) 1 dose .XX ASDIRECTED [facility] Vancomycin HCl (Vancocin) Confirm Administered Dose 1 gm .ROUTE .STK-MED ONE Stop: 11/06/16 01:43 Last Admin: 11/06/16 02:08 Dose: Not Given - Exam General: alert, cooperative, no acute distress, mild distress, other (Morbidly Obese) HEENT: Pupils equal, Pupils reactive, EOMI, Mucous membr. moist/pink Neck: supple, trachea midline, no JVD Lungs: Clear to auscultation, Normal respiratory effort Cardiovascular: Regular Rate, Regular Rhythm Abdomen: bowel sounds present, soft, no tenderness, no distension (Male) Exam: Deferred Back Exam: Normal Inspection, Decreased Range of Motion Extremities: normal pulses, no tenderness/swelling, no clubbing, no cyanosis, no calf tenderness, edema Skin: warm, dry, intact, rash Wound/Incisions: no drainage, erythema improving Neurological: no new focal deficit Psy/Mental Status: alert, normal affect, normal mood - Problem List Review Problem List Initiated/Reviewed/Updated: Yes - My Orders Last 24 Hours: My Active Orders 11/06/16 06:39 Height and Weight [RC] DAILY Intake and Output [RC] 04,16 Oxygen Therapy [RC] PRN Up ad Alana [RC] ASDIRECTED VTE/DVT Education [RC] DAILY Vital Signs [RC] Q4HR Acetaminophen/HYDROcodone [[place] 325-5 MG] 1 tab PO Q4H PRN Albuterol/Ipratropium [DuoNeb 3.0-0.5 MG/3 ML] 3 ml NEB Q4H PRN Bisacodyl [Dulcolax] 5 mg PO DAILY PRN Docusate Sodium [Colace] 100 mg PO BID PRN Docusate Sodium/Sennosides [Senna Plus] 1 tab PO BID PRN LORazepam [Ativan] 1 mg IV Q6H PRN Polyethylene Glycol 3350 [MiraLAX] 17 gm PO DAILY PRN Promethazine [Phenergan] 12.5 mg Sodium Chloride 0.9% [Normal Saline] 50 ml IV Q6H 11/06/16 06:41 RT Aerosol Therapy [RC] .PRN 11/06/16 06:43 Consult to Case Management [CONS] Routine Consult to Double Cutter [CONS] Routine Consult to Architecture Analyst [CONS] Routine Consult to Spiritual Care [CONS] Routine 11/06/16 06:45 Patient's Own Medication [Ptom] 1 - 2 each INH ASDIRECTED 11/06/16 08:55 Metoprolol Tartrate [Lopressor] 5 mg IVPUSH Q4H PRN hydrALAZINE [Apresoline] 20 mg IVPUSH Q4H PRN 11/06/16 09:00 Magnesium Rep Pharmacy to Dose [Pharmacy to Dose - Magnesium Replacement] 1 dose .XX ASDIRECTED Patient's Own Medication [Ptom] 0 each PO BID Patient's Own Medication [Ptom] 0 each PO BID Patient's Own Medication [Ptom] 0 each PO DAILY Patient's Own Medication [Ptom] 1 - 2 each INH BID Potassium Rep Pharmacy to Dose [Pharmacy to Dose - Potassium Replacement] 1 dose .XX ASDIRECTED 11/06/16 09:45 Vancomycin Pharmacy to Dose [Pharmacy to Dose - Vancomycin] 1 dose .XX Q24H 11/06/16 10:00 Vancomycin 1 gm Vancomycin 500 mg Sodium Chloride 0.9% [Normal Saline] 500 ml IV Q8H 11/06/16 10:06 Patient's Own Medication [Ptom] 20 each PO DAILY 11/06/16 10:10 Patient's Own Medication [Ptom] 0 each PO DAILY 11/06/16 10:13 Temazepam [Restoril] 30 mg PO BEDTIME PRN 11/06/16 14:53 HYDROmorphone [Dilaudid] 0.25 mg IVPUSH Q2H PRN 11/06/16 17:00 Patient's Own Medication [Ptom] 0 each PO DAILY@1700 11/06/16 21:00 Enoxaparin [Lovenox] 40 mg SUBCUT Q12HR Patient's Own Medication [Ptom] 0 each PO BEDTIME Patient's Own Medication [Ptom] 0 each PO BEDTIME 11/06/16 23:02 Patient's Own Medication [Ptom] 0 each PO ASDIRECTED PRN 11/06/16 Lunch Regular Diet [DIET] 11/07/16 06:35 BASIC METABOLIC PANEL,BMP [CHEM] AM C-REACTIVE PROTEIN [CHEM] AM LIPID PANEL [CHEM] AM MAGNESIUM [CHEM] AM 11/08/16 05:11 BASIC METABOLIC PANEL,BMP [CHEM] AM C-REACTIVE PROTEIN [CHEM] AM CBC WITH AUTO DIFF [HEME] AM MAGNESIUM [CHEM] AM 11/08/16 09:59 Patient's Own Medication [Ptom] 0 each PO We 11/09/16 05:11 BASIC METABOLIC PANEL,BMP [CHEM] AM C-REACTIVE PROTEIN [CHEM] AM CBC WITH AUTO DIFF [HEME] AM MAGNESIUM [CHEM] AM 11/10/16 05:11 BASIC METABOLIC PANEL,BMP [CHEM] AM C-REACTIVE PROTEIN [CHEM] AM CBC WITH AUTO DIFF [HEME] AM MAGNESIUM [CHEM] AM - Plan Plan:: Assessment/Plan: Acute: Right Lower Leg SST/Cellulitis, Improving - Supportive Care - IV Vancomycin 1 gram TID for pharmacy to dose Leukocytosis - WBC is 22.15 ---> 19.50 ---> 9.87 - CRP 34.1 --> 14.7 Hypokalemia - K 3.3 likely from inadequate intake - Pharmacy to replete and monitor Hyperglycemia - A1C 6.30 - He is pre-diabetes Morbidly Obese - BMI 65 - TFT normal - Dietary consult for weight management Dyslipidemia - LSM - AHA diet/low chol Chronic: HTN HLD Asthma Colonic Polyp IBS Anxiety Psoriasis Plan: He is clinically stab;e Routine AM Labs Continue PT/OT DVT ppx: Lovenox SubQ BID CM/SW for d/c planning Code status:1 Possible d/c in am
[2016-11-07] MEDS ORDERED: Magnesium Sulfate/Water 2 GM in Premix Bag 1 BAG IV ONE (08:00)
[2016-11-07] MEDS: FOLIC ACID 1 MG PO SCH (08:53)
[2016-11-07] MEDS: Potassium Chloride 20 MEQ Tab.ER PO SCH ×2 (08:53→12:17)
[2016-11-07] MEDS: LOSARTAN PO SCH (08:53)
[2016-11-07] MEDS: DOCUSATE SODIUM 100 MG PO SCH ×2 (08:53→20:20)
[2016-11-07] MEDS: HCTZ PO SCH (08:53)
[2016-11-07] MEDS: CALCIUM CARBONATE 600 MG PO SCH ×2 (08:53→20:20)
[2016-11-07] MEDS: Enoxaparin 40 MG/0.4 ML Syringe SUBCUT SCH ×2 (08:53→20:19)
[2016-11-07] MEDS: SALMETEROL INH SCH ×2 (09:05→20:53)
[2016-11-07] MEDS: FLUTICASONE INH SCH ×2 (09:05→20:53)
[2016-11-07] MEDS: Sodium Chloride 0.9% 1,000 ML IV SCH (09:53)
[2016-11-07] MEDS: Omeprazole [Omeprazole] 20 MG PO SCH (18:15)
[2016-11-07] MEDS: FATTY ACIDS PO SCH (20:20)
[2016-11-07] MEDS: OMEGA PO SCH (20:20)
[2016-11-07] MEDS: UBIDECARENONE 100 MG PO SCH (20:20)
[2016-11-07] MEDS: FISH OIL PO SCH (20:20)
[2016-11-07] MEDS: Acetaminophen/HYDROcodone 325-5 MG Tab PO PRN (20:21)
[2016-11-08] MEDS: Vancomycin 1500 MG in Sodium Chloride 0.9% 500 ML IV SCH ×6 (01:44→12:10)
[2016-11-08] MEDS: SALMETEROL INH SCH (08:07)
[2016-11-08] MEDS: FLUTICASONE INH SCH (08:07)
--- NOTE | 2016-11-08 08:33 | PCM.DCSUM1 ---
Discharge Summary - Hospital Course Brief History: This is a 36-year-old morbidly obese white male with past medical history of hypertension, hyperlipidemia, asthma, history of colonic polyp, irritable bowel syndrome, anxiety, psoriasis, and history of Collazo's palsy who comes in with worsening right lower leg edema associated with erythema and was admitted for SSTI/Cellulitis. - Discharge Data Discharge Date: 11/08/16 Discharge Disposition: Home, Self-Care 01 Condition: Good - Discharge Diagnosis/Problem(s) (1) Cellulitis of right leg SNOMED Code(s): 601198792 ICD Code: L03.115 - CELLULITIS OF RIGHT LOWER LIMB Status: Acute - Patient Summary/Data Operative Procedure(s) Performed: None Complications: None Consults: Consultations 11/06/16 06:43 Consult to Case Management [CONS] Routine Consult to Dental Hygiene Teacher [CONS] Routine Consult to Educational Resource Coordinator [CONS] Routine Consult to Spiritual Care [CONS] Routine 11/07/16 12:02 Consult to Brake Repairer Air [Consult to Diabetic Nurse Specialist] [CONS] Routine Hospital Course: This is a 36-year-old morbidly obese white male who was primarily admitted for medical management of soft tissue skin infection/cellulitis. Patient had multiple coin-like lesions on bilateral lower extremity which we felt were the source of his skin infection. Per patient, he picked on them because of pruritis. He had been using Aquaphor which was provided by his primary care but without help. His cellulitis was primarily localized to his right lower extremity. On his short stay with us, he was provided intravenous Vancomycin along with supportive care to improved his infection. His hospital course was fairly uncomplicated with the exception of electrolytes abnormalities. However, these were corrected with oral supplementation. The rest of his chronic medical illness remained stable during his admission. On this admission, he was found to have pre-diabetes on screening with an A1C level 6.3. Dietary and diabetic education were both consulted for weight management and for diabetes respectively. Patient is now stable for discharge. His lower extremity has greatly improved since presentation. He will be discharged with oral clindamycin 900 mg by mouth 3 times a day for 7 days along with probiotic supplement. He will also be provided prescription for Benadryl cream to apply on affected area as needed for itching. A short course of oral Lasix 40 mg by mouth to take daily when necessary for lower extremity edema was added as part of his home maintenance medications. Patient was advised to stay at home for now until resolution of skin infection. He is to follow-up with his primary care doctor after discharge. He was further advised to come back or seek immediate care should his symptom persists or gets worse. Patient expressed understanding and in agreement with the plans as discussed above. All questions were answered. - Patient Instructions Diet: Usual Diet as Tolerated, Weight Loss Diet Activity: As Tolerated Driving: Do Not Drive Showering/Bathing: May Shower Notify Provider of: Fever, Increased Pain, Swelling and Redness, Drainage, Nausea and/or Vomiting Other/Special Instructions: - Please take all medications as directed. - Follow up with your doctor in 1-2 weeks. - Please come back or seek immediate care should your symptom persists or gets worse - Discharge Plan Prescriptions/Med Rec: Clindamycin Hcl [IMW: Clindamycin HCl] 900 mg PO Q8HR #21 cap Furosemide [Lasix] 40 mg PO DAILY PRN #20 tablet PRN Reason: Edema Lactobac Cmb #3/Fos/Pantethine [Probiotic & Acidophilus] 1 each PO TID #21 capsule diphenhydrAMINE HCl/Zinc Acet [Benadryl Itch Stopping Crm] 28.3 gm TP Q4H PRN # 1 cream..g. PRN Reason: Itching Home Medications: Home Meds Acetaminophen [Tylenol Extra Strength] 500 mg PO Q4H PRN 11/05/16 [History] Calcium Carbonate [Calcium] 600 mg PO BID 11/05/16 [History] Fish Oil/[place]-3 Fatty Acids [Fish Oil 1,000 MG] 1,000 mg PO BEDTIME 11/05/16 [ History] Fluticasone/Salmeterol [Advair 250-50 Diskus] 1 - 2 puff INH BID 11/05/16 [ History] Folic Acid 1 mg PO DAILY 11/05/16 [History] Levalbuterol Tartrate [Xopenex Hfa] 1 - 2 puff INH ASDIRECTED 11/05/16 [History] Losartan/Hydrochlorothiazide [Losartan-HCTZ 50-12.5 MG] 1 tab PO DAILY 11/05/16 [History] PARoxetine [Paxil] 20 mg PO DAILY 11/05/16 [History] Simethicone 125 mg PO ASDIRECTED 11/05/16 [History] Ubidecarenone [Coq10] 100 mg PO BEDTIME 11/05/16 [History] Cholecalciferol (Vitamin D3) [Vitamin D] 50,000 units PO WEEKLY 11/06/16 [ History] Docusate Sodium [Colace] 100 mg PO BID 11/06/16 [History] Omeprazole 20 mg PO DAILY 11/06/16 [History] Clindamycin Hcl [IMW: Clindamycin HCl] 900 mg PO Q8HR #21 cap 11/08/16 [Rx] Furosemide [Lasix] 40 mg PO DAILY PRN #20 tablet 11/08/16 [Rx] Lactobac Cmb #3/Fos/Pantethine [Probiotic & Acidophilus] 1 each PO TID #21 capsule 11/08/16 [Rx] diphenhydrAMINE HCl/Zinc Acet [Benadryl Itch Stopping Crm] 28.3 gm TP Q4H PRN # 1 cream..g. 11/08/16 [Rx] Patient Handouts: Cellulitis, Adult, [id number] Referrals: Joe Saab MD [Primary Care Provider] - (Please schedule a post hospital follow-up appointment with Dr. Saab in 1-2 weeks. ) - Discharge Summary/Plan Comment DC Time >30 min.: Yes (45 mins) Discharge Summary/Plan Comment: Discharge to Home - General Info Date of Service: 11/08/16 Admission Dx/Problem (Free Text: SSTI/Cellulitis Subjective Update: Follow Up Functional Status: Reports: pain controlled, tolerating diet, ambulating, urinating. Denies: new symptoms - Review of Systems General: Denies: Fever, Weakness, Malaise, Chills HEENT: Reports: no symptoms Pulmonary: Denies: shortness of breath Cardiovascular: Reports: Edema (mild edema on right lower extremity). Denies: Chest Pain Gastrointestinal: Denies: Difficulty swallowing, Nausea, Vomiting Genitourinary: Reports: no symptoms Musculoskeletal: Reports: no symptoms Skin: Denies: cyanosis, pruritis, rash Neurological: Denies: Confusion, Difficulty Walking, Weakness, Gait Disturbance Psychiatric: Denies: depression, anxiety, agitation, hallucinations Systems Review Comment: No overnight or acute issues. He is doing relatively well. His right leg looks pinkish in color with some edema. His WBC and CRP continues to improve. He has no new complaints. - Patient Data Vitals - Most Recent: Last Vital Signs Temp 36.6 C 11/07/16 17:04 Pulse 86 11/07/16 17:04 Resp 14 11/07/16 17:04 BP 144/79 H 11/07/16 17:04 Pulse Ox 96 11/08/16 08:07 Weight - Most Recent: 166.559 kg I&O - Last 24 hours: Intake & Output 11/07/16 11/08/16 11/08/16 22:59 06:59 14:59 Intake Total 2680 2674 Output Total 1000 900 Balance 1680 1774 Lab Results - Last 24 hrs: Laboratory Results - last 24 hr 11/08/16 11/08/16 Range/Units 06:06 06:06 WBC 9.29 H (4.23-9.07) K/mm3 RBC 4.09 L (4.63-6.08) M/mm3 Hgb 12.0 L (13.7-17.5) gm/L Hct 37.8 L (40.1-51.0) % MCV 92.4 H (79.0-92.2) fl MCH 29.3 (25.7-32.2) pg MCHC 31.7 L (32.2-35.5) g/dl RDW Std Deviation 47.9 H (35.1-43.9) fL Plt Count 228 (163-337) K/mm3 MPV 9.3 L (9.4-12.3) fl Neut % (Auto) 64.5 (34.0-67.9) % Lymph % (Auto) 22.6 (21.8-53.1) % [place] % (Auto) 8.9 (5.3-12.2) % Eos % (Auto) 2.9 (0.8-7.0) Baso % (Auto) 0.5 (0.1-1.2) % Neut # (Auto) 5.98 H (1.78-5.38) K/mm3 Lymph # (Auto) 2.10 (1.32-3.57) K/mm3 [place]lee # (Auto) 0.83 H (0.30-0.82) K/mm3 Eos # (Auto) 0.27 (0.04-0.54) K/mm3 Baso # (Auto) 0.05 (0.01-0.08) K/mm3 Sodium 139 (136-145) mEq/L Potassium 3.9 (3.5-5.1) mEq/L Chloride 106 (98-107) mEq/L Carbon Dioxide 26 (21-32) mEq/L Anion Gap 10.9 (5-15) BUN 7 (7-18) mg/dL Creatinine 0.9 (0.7-1.3) mg/dL Est Cr Clr Drug Dosing 91.32 mL/min Estimated GFR (MDRD) > 60 (>60) mL/min BUN/Creatinine Ratio 7.8 L (14-18) Glucose 109 H (74-106) mg/dL Calcium 8.3 L (8.5-10.1) mg/dL Magnesium 1.9 (1.8-2.4) mg/dl C-Reactive Protein 6.6 H* (<1.0) mg/dL Med Orders - Current: Current Medications Acetaminophen (Tylenol) 975 mg PO Q6H PRN PRN Reason: Pain (moderate 4-6) Last Admin: 11/08/16 04:24 Dose: 975 mg Hydrocodone Bitart/Acetaminophen ([place] 325-5 Mg) 1 tab PO Q4H PRN PRN Reason: Pain (moderate 4-6) Last Admin: 11/07/16 20:21 Dose: 1 tab Albuterol/Ipratropium (Duoneb 3.0-0.5 Mg/3 Ml) 3 ml NEB Q4H PRN PRN Reason: Shortness Of Breath/wheezing Bisacodyl (Dulcolax) 5 mg PO DAILY PRN PRN Reason: Constipation Docusate Sodium (Colace) 100 mg PO BID PRN PRN Reason: Constipation Enoxaparin Sodium (Lovenox) 40 mg SUBCUT Q12HR [facility] Last Admin: 11/07/16 20:19 Dose: 40 mg Hydralazine HCl (Apresoline) 20 mg IVPUSH Q4H PRN PRN Reason: Hypertension Hydromorphone HCl (Dilaudid) 0.25 mg IVPUSH Q2H PRN PRN Reason: Pain (severe 7-10) Sodium Chloride (Normal Saline) 1,000 mls @ 75 mls/hr IV ASDIRECTED [facility] Last Admin: 11/07/16 09:53 Dose: 75 mls/hr Promethazine HCl 12.5 mg/ (Sodium Chloride) 50.5 mls @ 100 mls/hr IV Q6H PRN PRN Reason: Nausea/Vomiting Vancomycin HCl 1 gm/Vancomycin HCl 500 mg/ Sodium Chloride 500 mls @ 333 mls/ hr IV Q8H [facility] Last Admin: 11/08/16 01:44 Dose: 333 mls/hr Lorazepam (Ativan) 1 mg IV Q6H PRN PRN Reason: Anxiety Magnesium Sulfate (Pharmacy To Dose - Magnesium Replacement) 1 dose .XX ASDIRECTED [facility] Metoprolol Tartrate (Lopressor) 5 mg IVPUSH Q4H PRN PRN Reason: Tachycardia Ondansetron HCl (Zofran) 4 mg IVPUSH Q4HR PRN PRN Reason: Nausea/Vomiting Calcium Carbonate [ (Calcium] 600 Mg) 0 each PO BID [facility] Last Admin: 11/07/16 20:20 Dose: 1 each Cholecalciferol ( Vitamin D3) [Vitamin D] 50,000 Units 0 each PO We BECK Docusate Sodium [ (Colace] 100 Mg) 0 each PO BID [facility] Last Admin: 11/07/16 20:20 Dose: 1 each Fish Oil/[place]-3 Fatty Acids [Fish Oil 1,000 Mg] 1,000 Mg 0 each PO BEDTIME [facility] Last Admin: 11/07/16 20:20 Dose: 1 each Fluticasone/Salmeterol [Advair 250-50 Diskus] 0 Puff 1 - 2 each INH BID [facility] Last Admin: 11/08/16 08:07 Dose: 1 each Levalbuterol Tartrate [Xopenex Hfa] 0 Puff 1 - 2 each INH ASDIRECTED [facility] Ubidecarenone [Coq10 (] 100 Mg) 0 each PO BEDTIME [facility] Last Admin: 11/07/16 20:20 Dose: 1 each Folic Acid 1 Mg Tab. 0 each PO DAILY [facility] Last Admin: 11/07/16 08:53 Dose: 1 each Paroxetine 20 Mg Tab 20 each PO DAILY [facility] Last Admin: 11/07/16 08:54 Dose: 20 each Losartan/Hctz 50-12. (5mg) 0 each PO DAILY [facility] Last Admin: 11/07/16 08:53 Dose: 1 each Omeprazole [ (Omeprazole] 20 Mg) 0 each PO DAILY@1700 [facility] Last Admin: 11/07/16 18:15 Dose: 20 each Simethicone [ (Simethicone] 125 Mg) 0 each PO ASDIRECTED PRN PRN Reason: GAS Last Admin: 11/06/16 23:39 Dose: 1 each Polyethylene Glycol (Miralax) 17 gm PO DAILY PRN PRN Reason: Constipation Potassium Chloride (Pharmacy To Dose - Potassium Replacement) 1 dose .XX ASDIRECTED [facility] Senna/Docusate Sodium (Senna Plus) 1 tab PO BID PRN PRN Reason: Constipation Temazepam (Restoril) 30 mg PO BEDTIME PRN PRN Reason: Sleep Last Admin: 11/07/16 20:22 Dose: 30 mg Vancomycin HCl (Pharmacy To Dose - Vancomycin) 1 dose .XX Q24H [facility] Last Admin: 11/07/16 08:54 Dose: Not Given Discontinued Medications Acetaminophen (Tylenol) 1,000 mg PO NOW ONE Stop: 11/06/16 03:00 Last Admin: 11/06/16 03:07 Dose: 1,000 mg Enoxaparin Sodium (Lovenox) 40 mg SUBCUT DAILY [facility] Last Admin: 11/06/16 09:50 Dose: 40 mg Hydrochlorothiazide (Hydrochlorothiazide) 12.5 mg PO DAILY [facility] Hydromorphone HCl (Dilaudid) 0.25 mg IVPUSH Q2H PRN PRN Reason: Pain (severe 7-10) Vancomycin HCl 1 gm/Vancomycin HCl 500 mg/ Sodium Chloride 500 mls @ 333 mls/ hr IV Q8H [facility] Last Admin: 11/06/16 02:07 Dose: 333 mls/hr Sodium Chloride (Normal Saline) Confirm Administered Dose 250 mls @ as directed .ROUTE .STK-MED ONE Stop: 11/06/16 01:45 Last Admin: 11/06/16 02:08 Dose: Not Given Magnesium Sulfate 2 gm/ Premix 50 mls @ 25 mls/hr IV ONETIME ONE Stop: 11/07/16 09:59 Last Admin: 11/07/16 08:49 Dose: 25 mls/hr Magnesium Oxide (Magnesium Oxide) 400 mg PO ONETIME ONE Stop: 11/06/16 09:16 Last Admin: 11/06/16 09:50 Dose: 400 mg Losartan/Hctz 50-12. (5mg Pt Own) 1 each PO DAILY [facility] Last Admin: 11/06/16 10:55 Dose: Not Given Non-Formulary Medication (Losartan/Hydrochlorothiazide) 1 tab PO DAILY [facility] Last Admin: 11/06/16 10:55 Dose: Not Given Non-Formulary Medication (Paroxetine [Paxil]) 20 mg PO DAILY [facility] Last Admin: 11/06/16 10:56 Dose: Not Given Ondansetron HCl (Zofran) 4 mg IVPUSH ONETIME ONE Stop: 11/06/16 01:52 Last Admin: 11/06/16 02:06 Dose: 4 mg Ondansetron HCl (Zofran) 4 mg IV Q6H PRN PRN Reason: Nausea/Vomiting Paroxetine HCl (Paxil) 20 mg PO DAILY [facility] Last Admin: 11/06/16 10:56 Dose: Not Given Omeprazole [ (Omeprazole] 20 Mg) 0 each PO DAILY [facility] Last Admin: 11/06/16 10:53 Dose: Not Given Simethicone [ (Simethicone] 125 Mg) 0 each PO ASDIRECTED [facility] Potassium Chloride (Klor-Con M20) 40 meq PO Q4H [facility] Stop: 11/06/16 13:16 Last Admin: 11/06/16 14:05 Dose: 40 meq Potassium Chloride (Klor-Con M20) 40 meq PO Q4H [facility] Stop: 11/07/16 11:46 Last Admin: 11/07/16 12:17 Dose: 40 meq Fluticasone/Salmeterol (Advair Diskus 250-50) 1 puff INH BID [facility] Last Admin: 11/06/16 08:29 Dose: 1 puff Temazepam (Restoril) 30 mg PO BEDTIME PRN PRN Reason: Sleep Vancomycin HCl (Pharmacy To Dose - Vancomycin) 1 dose .XX ASDIRECTED [facility] Vancomycin HCl (Vancocin) Confirm Administered Dose 1 gm .ROUTE .STK-MED ONE Stop: 11/06/16 01:43 Last Admin: 11/06/16 02:08 Dose: Not Given - Exam General: Reports: alert, cooperative, no acute distress, other (Morbidly Obese) HEENT: Reports: Pupils equal, Pupils reactive, EOMI, Mucous membr. moist/pink Neck: Reports: supple, trachea midline, no JVD, no thyromegaly, other (short and thick) Lungs: Reports: Clear to auscultation, Normal respiratory effort Cardiovascular: Reports: Regular Rate, Regular Rhythm Abdomen: Reports: bowel sounds present, soft, no tenderness, no distension, other (Obese) (Male) Exam: Deferred Rectal (Males) Exam: Deferred Back Exam: Reports: Normal Inspection, Decreased Range of Motion Extremities: Reports: normal pulses, no tenderness/swelling, no clubbing, no cyanosis, no calf tenderness, edema Skin: Reports: warm, dry, intact, other (coin like lesions on bilateral lower estremity) Wound/Incisions: Reports: erythema improving, other (right lower leg: superficial blanchable erythema ) Neurological: Reports: no new focal deficit Psy/Mental Status: Reports: alert, normal affect, normal mood *Q Meaningful Use (DIS) - VTE *Q VTE Criteria *Q: - Stroke *Q Stroke Criteria *Q: - AMI *Q AMI Criteria *Q:
[2016-11-08] MEDS: Enoxaparin 40 MG/0.4 ML Syringe SUBCUT SCH (08:46)
[2016-11-08] MEDS: CALCIUM CARBONATE 600 MG PO SCH (08:49)
[2016-11-08] MEDS: DOCUSATE SODIUM 100 MG PO SCH (08:50)
[2016-11-08] MEDS: FOLIC ACID 1 MG PO SCH (08:50)
[2016-11-08] MEDS: LOSARTAN PO SCH (08:51)
[2016-11-08] MEDS: HCTZ PO SCH (08:51)
[2016-11-08] MEDS: CHOLECALCIFEROL 50000 UNIT PO SCH ×2 (08:52→10:57)
[2016-11-08 08:59] VITALS: BP 134/82
[2016-11-08] MEDS: Sodium Chloride 0.9% 1,000 ML IV SCH (11:12)
[2016-11-08] MEDS ORDERED: Bumetanide 1 MG/4 ML MDV IVPUSH ONE (12:51)
[2016-11-08] MEDS ORDERED: Sodium Chloride 0.9% 10 ML Syringe FLUSH PRN (12:52)
== END 2016-11-08 15:53 | disposition home or self-care (01) ==
LOC: SUPCPDRO 21:50 → JD.ED 21:50 → JD.MS 11-06 03:30
PROVIDERS: ADMIT Internal Medicine; ATTEND Internal Medicine
DX: L03.115 Cellulitis of right lower limb (principal); D72.829 Elevated white blood cell count, unspecified; E87.6 Hypokalemia; R73.9 Hyperglycemia, unspecified; E66.01 Morbid (severe) obesity due to excess calories; I10 Essential (primary) hypertension; E78.5 Hyperlipidemia, unspecified; J45.909 Unspecified asthma, uncomplicated; K58.9 Irritable bowel syndrome, unspecified; F41.9 Anxiety disorder, unspecified; E78.00 Pure hypercholesterolemia, unspecified; Z86.010 Personal history of colon polyps; Z79.51 Long term (current) use of inhaled steroids; Z79.899 Other long term (current) drug therapy; Z88.1 Allergy status to other antibiotic agents; Z88.4 Allergy status to anesthetic agent; Z88.8 Allergy status to other drugs, medicaments and biological substances; Z91.012 Allergy to eggs; Z91.018 Allergy to other foods; Z91.048 Other nonmedicinal substance allergy status; Z98.890 Other specified postprocedural states
CPT/HCPCS: 36415; 80048; 80053; 80061; 80202; 83036; 83735; 84439; 84443; 85025; 86140; 94640; 94664; 94760; 94761; 96361; 96365; 96366; 96372; 96375; 96376; 99284; A9270; G0378; J1650; J2405; J3370; J7040; J3475

== ENCOUNTER 2017-04-26 15:02 | Emergency (ER) | payer MEDICARE, MEDICAID ==
--- NOTE | 2017-04-26 15:13 | EDM.PDOC ---
ED HPI GENERAL MEDICAL PROBLEM - General Chief Complaint: Lower Extremity Injury/Pain Stated Complaint: INFECTION- SENT BY CLINIC Time Seen by Provider: 04/26/17 15:08 Source of Information: Reports: Patient, Family (Mother) - History of Present Illness INITIAL COMMENTS - FREE TEXT/NARRATIVE: 37-year-old male who is mildly mentally handicapped presents to the ED at the request of his primary care physician Dr. Saab. He was just seen in the clinic and identified to be developing a cellulitis of his Rt lower extremity. He presented to clinic because of fever, nausea vomiting and diarrhea x2 days.. Temperature was 101. Apparently he has had cellulitis of the this extremity before. Dr. Saab did not identify that he spend MRSA positive at any time in the past. At any rate when blood cell count was nearly 30,000 with a left shift and his CRP was reported to be 166.8 which I find very difficult to believe.. Blood sugar was reported to be 141 sodium slightly low at 135 patient has had multiple bilious emeses. No blood noted. He does have some heartburn at this time he said loose watery diarrhea stools with no blood. Onset: Sudden Onset Date: 04/24/17 Duration: Day(s):, Getting Worse Location: Reports: Lower Extremity, Right (Swelling pain and ulcerations which she's had in the past. Apparently gets these from scratching. Patient appreciates that the redness seems to be traveling up his leg towards his groin. ) Quality: Reports: Ache, Burning Severity: Moderate Improves with: Reports: None Worsens with: Reports: Other (Gastroenteritis symptoms worsen with eating. Nothing seems to make his leg worse or better.) Context: Denies: Activity, Exercise, Lifting, Sick Contact, Trauma, Other Associated Symptoms: Reports: Loss of Appetite, Malaise, Nausea/Vomiting, Other (Diarrhea loose watery yellow stools). Denies: Chest Pain, Cough, cough w sputum, Syncope Treatments CONSULT[employer]: Reports: Other (see below) (Nothing will stay down.) Right Lower Leg Pain Score (Numeric/FACES): 5 - Related Data Allergies Allergy/AdvReac Type Severity Reaction Status Date / Time carbetapentane citrate Allergy Other Verified 04/26/17 15:14 [From Gentex 30] guaifenesin [From Gentex 30] Allergy Other Verified 04/26/17 15:14 kiwi Allergy Other Verified 04/26/17 15:14 latex Allergy Hives Verified 04/26/17 15:14 phenylephrine HCl Allergy Other Verified 04/26/17 15:14 [From Gentex 30] pineapple Allergy Difficulty Verified 04/26/17 15:14 Breathing strawberry Allergy Other Verified 04/26/17 15:14 egg yolk AdvReac Nausea Verified 04/26/17 15:14 Fish Containing Products AdvReac Nausea Verified 04/26/17 15:14 "anesthesia" Allergy Other Uncoded 04/26/17 15:14 gentamycin Allergy Other Uncoded 04/26/17 15:14 nuts Allergy Rectal Uncoded 04/26/17 15:14 Bleeding Home Meds: Home Meds Acetaminophen [Tylenol Extra Strength] 500 mg PO Q4H PRN 11/05/16 [History] Calcium Carbonate [Calcium] 600 mg PO BID 11/05/16 [History] Fish Oil/[place]-3 Fatty Acids [Fish Oil 1,000 MG] 1,000 mg PO BEDTIME 11/05/16 [ History] Fluticasone/Salmeterol [Advair 250-50 Diskus] 1 - 2 puff INH BID 11/05/16 [ History] Folic Acid 1 mg PO DAILY 11/05/16 [History] Levalbuterol Tartrate [Xopenex Hfa] 1 - 2 puff INH ASDIRECTED 11/05/16 [History] Losartan/Hydrochlorothiazide [Losartan-HCTZ 50-12.5 MG] 1 tab PO DAILY 11/05/16 [History] PARoxetine [Paxil] 20 mg PO DAILY 11/05/16 [History] Simethicone 125 mg PO ASDIRECTED 11/05/16 [History] Ubidecarenone [Coq10] 100 mg PO BEDTIME 11/05/16 [History] Cholecalciferol (Vitamin D3) [Vitamin D] 50,000 units PO WEEKLY 11/06/16 [ History] Docusate Sodium [Colace] 100 mg PO BID 11/06/16 [History] Omeprazole 20 mg PO DAILY 11/06/16 [History] Furosemide [Lasix] 40 mg PO DAILY PRN #20 tablet 11/08/16 [Rx] Lactobac Cmb #3/Fos/Pantethine [Probiotic & Acidophilus] 1 each PO TID #21 capsule 11/08/16 [Rx] diphenhydrAMINE HCl/Zinc Acet [Benadryl Itch Stopping Crm] 28.3 gm TP Q4H PRN # 1 cream..g. 11/08/16 [Rx] Past Medical History HEENT History: Reports: Allergic Rhinitis Cardiovascular History: Reports: Heart Failure, Heart Murmur, High Cholesterol, Hypertension Respiratory History: Reports: Asthma, Other (See Below) (Strongly suspect sleep apnea syndrome that has not been diagnosed.) Gastrointestinal History: Reports: Colon Polyp, Irritable Bowel Syndrome Psychiatric History: Reports: Anxiety Dermatologic History: Reports: Psoriasis - Infectious Disease History Infectious Disease History: Reports: Chicken Pox - Past Surgical History HEENT Surgical History: Reports: Adenoidectomy, Myringotomy w Tube(s), Other ( See Below) Other HEENT Surgeries/Procedures: reconstructive ear surgeries and wisdom teeth removal GI Surgical History: Reports: None Dermatological Surgical History: Reports: None Social & Family History - Family History Family Medical History: Noncontributory - Tobacco Use Smoking Status *Q: Never Smoker Second Hand Smoke Exposure: No - Caffeine Use Caffeine Use: Reports: Soda, Tea Other Caffeine Use: on occassion pop - Alcohol Use Days Per Week of Alcohol Use: 0 - Recreational Drug Use Recreational Drug Use: No - Living Situation & Occupation Living situation: Reports: Single Occupation: Employed (Works nights. Resides with his mother.) ED ROS GENERAL - Review of Systems Review Of Systems: See Below Constitutional: Reports: Fever, Chills, Malaise, Weakness, Fatigue, Decreased Appetite HEENT: Reports: No Symptoms, Other (Dry mouth) Respiratory: Denies: Shortness of Breath, Wheezing, Pleuritic Chest Pain Cardiovascular: Reports: Dyspnea on Exertion, Other (Generalized weakness). Denies: Blood Pressure Problem (Chronically), Claudication, Lightheadedness, Orthopnea Endocrine: Reports: Fatigue GI/Abdominal: Reports: Abdominal Pain (Intermittent abdominal cramping pain associated with the diarrhea and vomiting.), Diarrhea (Loose watery stools slightly yellow in color 3.), Nausea, Vomiting (Last emesis was 2 hours ago) : Reports: No Symptoms Musculoskeletal: Reports: Leg Pain (Right lower extremity pain radiating up towards his right groin. This seems to be started at least 2 days ago.) Skin: Reports: Other (Active erythema swelling and pain right leg from ankle to knee and then along the medial aspect of the right thigh to the groin. Also a rash on the left lower abdominal wall which appears to be secondary to excoriations.) Neurological: Reports: No Symptoms Psychiatric: Reports: No Symptoms Hematologic/Lymphatic: Reports: No Symptoms Immunologic: Reports: No Symptoms ED EXAM, SKIN/RASH Exam: See Below Exam Limited By: Physical Impairment (Patient is mentally handicapped.) General Appearance: Alert, Mild Distress Eye Exam: Bilateral Eye: Normal Inspection Throat/Mouth: Other (Tongue is moderately dry and coated and shriveled.) Head: Atraumatic, Normocephalic Neck: Normal Inspection, Supple, Non-Tender, Full Range of Motion Respiratory/Chest: Lungs Clear, Normal Breath Sounds, No Accessory Muscle Use, Chest Non-Tender, Respiratory Distress (Tachypnea At rest 24-26/m.), Other ( Decreased air entry to the posterior lung pace due to his size.) Cardiovascular: Normal Peripheral Pulses, No Gallop (Tachycardia at rest 1 20/m. ), No Murmur, No Rub, Tachycardia Peripheral Pulses: 1+: Popliteal (R), Posterior Tibial (L), Posterior Tibial (R) , Dorsalis Pedis (L) GI/Abdominal: Normal Bowel Sounds, Soft, Non-Tender, No Organomegaly Extremities: Normal Inspection, Normal Range of Motion, Non-Tender, No Pedal Edema Neurological: Alert, Oriented, CN II-XII Intact, Normal Cognition, Normal Gait Psychiatric: Normal Affect, Normal Mood Skin: Warm, Dry, Intact, Normal Color, Other (There is a rash on the left lencho- abdominal wall which appears to be mostly superficial ulcerations mostly healed. There is evidence of excoriations from scratching. Similarly has an extensive cellulitis of his right lower extremity with numerous ulcerations in various forms of healing. There is no active purulent drainage from any of these lesions. The leg itself is bright red and very warm and very painful to touch. Erythema spreads along the medial aspect of his thigh up into the inguinal region and along I believe the right lower abdominal wall.) Location, Skin: Lower Extremity, Right (Cellulitis of the entire lower leg with evidence of erythema spreading medially up the thigh to the groin.), Other (No inguinal adenopathy noted on the right side.) Characteristics: Macular, Other (There are numerous ulcerations in various forms of healing on the right leg. Apparently he scratches these until the bleed at times. There are no vesicles at this time) Associated features: Warmth, Tenderness, Swelling, Induration (Right leg), Inflammation (Severe right leg) EKG INTERPRETATION EKG Date: 04/26/17 Time: 17:00 Rhythm: NSR Rate (Beats/Min): 100 [place]: LAD-Left [place] Deviation (-60 there is a left anterior fascicular block pattern) P-Wave: Present QRS: Other (There is a near Q-wave in V1 and V2 suggestive of possible old anteroseptal myocardial infarction. After this occurs very poor R-wave progression.) ST-T: Normal QT: Normal EKG Interpretation Comments: Abnormal ECG Course - Vital Signs Last Recorded V/S: Last Vital Signs Temp 36.1 C 04/26/17 19:17 Pulse 93 04/26/17 19:17 Resp 18 04/26/17 19:17 BP 109/67 04/26/17 19:17 Pulse Ox 96 04/26/17 19:17 - Orders/Labs/Meds Labs: Laboratory Tests 04/26/17 04/26/17 04/26/17 Range/Units 16:26 16:26 16:26 WBC 27.75 H (4.23-9.07) K/mm3 RBC 5.29 (4.63-6.08) M/mm3 Hgb 15.6 (13.7-17.5) gm/L Hct 46.1 (40.1-51.0) % MCV 87.1 (79.0-92.2) fl MCH 29.5 (25.7-32.2) pg MCHC 33.8 (32.2-35.5) g/dl RDW Std Deviation 46.5 H (35.1-43.9) fL Plt Count 216 (163-337) K/mm3 MPV 9.6 (9.4-12.3) fl Neutrophils % (Manual) 84 H (40-60) % Band Neutrophils % 10 (0-10) % Lymphocytes % (Manual) 3 L (20-40) % Atypical Lymphs % 0 % Monocytes % (Manual) 3 (2-10) % Eosinophils % (Manual) 0 L (0.8-7.0) % Basophils % (Manual) 0 L (0.2-1.2) Platelet Estimate Adequate Plt Morphology Comment Normal RBC Morph Comment Normal Sodium 138 (136-145) mEq/L Potassium 4.1 (3.5-5.1) mEq/L Chloride 100 (98-107) mEq/L Carbon Dioxide 28 (21-32) mEq/L Anion Gap 14.1 (5-15) BUN 11 (7-18) mg/dL Creatinine 1.3 (0.7-1.3) mg/dL Est Cr Clr Drug Dosing 70.21 mL/min Estimated GFR (MDRD) > 60 (>60) mL/min BUN/Creatinine Ratio 8.5 L (14-18) Glucose 130 H (74-106) mg/dL Lactic Acid (0.4-2.0) mmol/L Calcium 9.3 (8.5-10.1) mg/dL Total Bilirubin 0.9 (0.2-1.0) mg/dL AST 19 (15-37) U/L ALT 31 (16-63) U/L Alkaline Phosphatase 47 (46-116) U/L Creatine Kinase (39-308) U/L C-Reactive Protein < 0.2 (<1.0) mg/dL NT-Pro-B Natriuret Pep 1330 H (0-125) pg/mL Total Protein 7.0 (6.4-8.2) g/dl Albumin 3.3 L (3.4-5.0) g/dl Globulin 3.7 gm/dL Albumin/Globulin Ratio 0.9 L (1-2) Urine Color (Yellow) Urine Appearance (Clear) Urine pH (5.0-8.0) Ur Specific [place] (1.005-1.030) Urine Protein (Negative) Urine Glucose (UA) (Negative) Urine Ketones (Negative) Urine Occult Blood (Negative) Urine Nitrite (Negative) Urine Bilirubin (Negative) Urine Urobilinogen (0.2-1.0) Ur Leukocyte Esterase (Negative) Urine RBC (0-5) /hpf Urine WBC (0-5) /hpf Ur Epithelial Cells (0-5) /hpf Urine Bacteria (FEW) /hpf Urine Mucus (FEW) /hpf MRSA (PCR) 04/26/17 04/26/17 04/26/17 Range/Units 16:37 16:45 16:50 WBC (4.23-9.07) K/mm3 RBC (4.63-6.08) M/mm3 Hgb (13.7-17.5) gm/L Hct (40.1-51.0) % MCV (79.0-92.2) fl MCH (25.7-32.2) pg MCHC (32.2-35.5) g/dl RDW Std Deviation (35.1-43.9) fL Plt Count (163-337) K/mm3 MPV (9.4-12.3) fl Neutrophils % (Manual) (40-60) % Band Neutrophils % (0-10) % Lymphocytes % (Manual) (20-40) % Atypical Lymphs % % Monocytes % (Manual) (2-10) % Eosinophils % (Manual) (0.8-7.0) % Basophils % (Manual) (0.2-1.2) Platelet Estimate Plt Morphology Comment RBC Morph Comment Sodium (136-145) mEq/L Potassium (3.5-5.1) mEq/L Chloride (98-107) mEq/L Carbon Dioxide (21-32) mEq/L Anion Gap (5-15) BUN (7-18) mg/dL Creatinine (0.7-1.3) mg/dL Est Cr Clr Drug Dosing mL/min Estimated GFR (MDRD) (>60) mL/min BUN/Creatinine Ratio (14-18) Glucose (74-106) mg/dL Lactic Acid 2.9 H (0.4-2.0) mmol/L Calcium (8.5-10.1) mg/dL Total Bilirubin (0.2-1.0) mg/dL AST (15-37) U/L ALT (16-63) U/L Alkaline Phosphatase (46-116) U/L Creatine Kinase 191 (39-308) U/L C-Reactive Protein (<1.0) mg/dL NT-Pro-B Natriuret Pep (0-125) pg/mL Total Protein (6.4-8.2) g/dl Albumin (3.4-5.0) g/dl Globulin gm/dL Albumin/Globulin Ratio (1-2) Urine Color (Yellow) Urine Appearance (Clear) Urine pH (5.0-8.0) Ur Specific [place] (1.005-1.030) Urine Protein (Negative) Urine Glucose (UA) (Negative) Urine Ketones (Negative) Urine Occult Blood (Negative) Urine Nitrite (Negative) Urine Bilirubin (Negative) Urine Urobilinogen (0.2-1.0) Ur Leukocyte Esterase (Negative) Urine RBC (0-5) /hpf Urine WBC (0-5) /hpf Ur Epithelial Cells (0-5) /hpf Urine Bacteria (FEW) /hpf Urine Mucus (FEW) /hpf MRSA (PCR) Negative 04/26/17 Range/Units 17:53 WBC (4.23-9.07) K/mm3 RBC (4.63-6.08) M/mm3 Hgb (13.7-17.5) gm/L Hct (40.1-51.0) % MCV (79.0-92.2) fl MCH (25.7-32.2) pg MCHC (32.2-35.5) g/dl RDW Std Deviation (35.1-43.9) fL Plt Count (163-337) K/mm3 MPV (9.4-12.3) fl Neutrophils % (Manual) (40-60) % Band Neutrophils % (0-10) % Lymphocytes % (Manual) (20-40) % Atypical Lymphs % % Monocytes % (Manual) (2-10) % Eosinophils % (Manual) (0.8-7.0) % Basophils % (Manual) (0.2-1.2) Platelet Estimate Plt Morphology Comment RBC Morph Comment Sodium (136-145) mEq/L Potassium (3.5-5.1) mEq/L Chloride (98-107) mEq/L Carbon Dioxide (21-32) mEq/L Anion Gap (5-15) BUN (7-18) mg/dL Creatinine (0.7-1.3) mg/dL Est Cr Clr Drug Dosing mL/min Estimated GFR (MDRD) (>60) mL/min BUN/Creatinine Ratio (14-18) Glucose (74-106) mg/dL Lactic Acid (0.4-2.0) mmol/L Calcium (8.5-10.1) mg/dL Total Bilirubin (0.2-1.0) mg/dL AST (15-37) U/L ALT (16-63) U/L Alkaline Phosphatase (46-116) U/L Creatine Kinase (39-308) U/L C-Reactive Protein (<1.0) mg/dL NT-Pro-B Natriuret Pep (0-125) pg/mL Total Protein (6.4-8.2) g/dl Albumin (3.4-5.0) g/dl Globulin gm/dL Albumin/Globulin Ratio (1-2) Urine Color Yellow (Yellow) Urine Appearance Clear (Clear) Urine pH 7.0 (5.0-8.0) Ur Specific [place] 1.020 (1.005-1.030) Urine Protein 2+ H (Negative) Urine Glucose (UA) Negative (Negative) Urine Ketones Trace H (Negative) Urine Occult Blood 1+ H (Negative) Urine Nitrite Negative (Negative) Urine Bilirubin Negative (Negative) Urine Urobilinogen 0.2 (0.2-1.0) Ur Leukocyte Esterase Negative (Negative) Urine RBC 0-5 (0-5) /hpf Urine WBC 0-5 (0-5) /hpf Ur Epithelial Cells 0-5 (0-5) /hpf Urine Bacteria Few (FEW) /hpf Urine Mucus Few (FEW) /hpf MRSA (PCR) Meds: Medications Discontinued Medications Generic Name Dose Route Start Last Admin Trade Name Hemaq PRN Reason Stop Dose Admin Acetaminophen 975 mg 04/26/17 16:00 04/26/17 16:04 Tylenol PO 975 mg DAILY BECK Administration Diphenhydramine HCl 25 mg 04/26/17 19:18 04/26/17 19:24 Benadryl IVPUSH 04/26/17 19:19 25 mg ONETIME ONE Administration Furosemide 40 mg 04/26/17 17:39 04/26/17 18:01 Lasix IVPUSH 04/26/17 17:40 40 mg NOW ONE Administration Hydromorphone HCl 0.5 mg 04/26/17 15:27 04/26/17 16:40 Dilaudid IVPUSH 04/26/17 15:28 0.5 mg ONETIME ONE Administration Sodium Chloride 1,000 mls @ 999 mls/hr 04/26/17 15:30 04/26/17 17:59 Normal Saline IV Infused ASDIRECTED BECK Infusion Linezolid 600 mg/ Premix 300 mls @ 300 mls/hr 04/26/17 15:41 11/30/17 16:41 IV 04/26/17 16:40 300 mls/hr ONETIME ONE Administration Metoclopramide HCl 10 mg 04/26/17 15:26 04/26/17 16:39 Reglan IVPUSH 04/26/17 15:27 10 mg ONETIME ONE Administration Naloxone HCl Confirm 04/26/17 16:59 04/26/17 17:19 Narcan Administered 04/26/17 17:00 Not Given Dose 2 mg .ROUTE .STK-MED ONE Ondansetron HCl 4 mg 04/26/17 15:59 04/26/17 16:04 Zofran Odt PO 04/26/17 16:00 4 mg ONETIME ONE Administration - Radiology Interpretation Free Text/Narrative:: 37-year-old male who is mildly mentally handicapped presents to the ED in the Imminent of his mother and brother. The history suggests she's been ill for 2 days with nausea vomiting and loose watery diarrhea stools. It's been mostly vomiting of bilious material for 2 days and unable to keep down anything. He also appreciates redness and swelling of his right lower extremity for at least 2 days. Up apparently he has had cellulitis in his leg in the past. He is not known to be diabetic. Apparently he scratches lesions on his legs and his abdominal wall and causes these infections. Is no history of him having MRSA in the past. Of note he is allergic to gentamicin and therefore likely to vancomycin. Initial workup was started at the clinic by Dr. Rome his primary care provider. They identified a white count of 29,000 with a left shift and reportedly a CRP of 166.9. Temperature is 101.4. Source of infection is a reporting cellulitis of his right lower leg with evidence of it spreading systemically of the medial thigh to the groin. Therefore I am going to give him Zyvox 600 mg IV in the ED to cover for MRSA as he has an extensive skin infection and his weight is 371 pounds. I will repeat a labs and have blood cultures 2 done prior to starting antibiotic therapy. - Re-Assessments/Exams Free Text/Narrative Re-Assessment/Exam: 04/26/17 16:25 portable chest x-ray done shows poor inspirational view. This suggests mild cardiomegaly with diffuse vascular congestion but it may be due to portable technique and the patient's habitus. 04/26/17 17:23 Labs reveal a total white count of 27.75 with a left shift. Hemoglobin is 15.6 hematocrit 46.5 platelet count 216,000. Sodium is 138 potassium is 4.1. Chloride 100 bicarbonate 28. And a gap is 14.1. Creatinine is 1.3 be when his 11. EGFR is greater than 60. Glucose is 1:30 lactic acid is elevated at 2.9. Calcium is normal at 9.3 liver function normal CRP is reported at less than 0.2 which is felt not to be accurate. Albumin fraction is slightly low at 3.3. Anesthesia was able to establish an IV and labs were completely drawn. He was given Dilaudid 0.5 mg IV and he became quite drowsy from this and actually required little bit of oxygen support due to his body habitus. Zosyn 600 mg as running intravenously at this time. I will wait for the differential on the white count before calling hospitalist to arrange admission to the hospital. 04/26/17 17:43 BNP is 1330. I'm therefore going to give him Lasix 40 mg IV. This correlates with his chest x-ray , which suggested diffuse significant vascular congestion. Differential is pending. 04/26/17 18:19: Differential was 84% neutrophils and 10% band cells. I spoke with our hospitalist and identify that we have no beds in the ICU. For the first to [place]. I will discuss this with the family members to let them know that he is ill enough that he requires treatment in [place]. Is currently at work at [employer] here in [place]. He is complaining of severe itch over the right lower extremity I don't want him to scratch it. I will try Benadryl 25 mg IV en route this does not cause him to become overly sedated. 04/26/17 19:00: Spoke with Dr. Osborne hospitalist at [facility] in [place] and he is accepted care of Mr. Campos. Patient will be transported by ground a months. IV is normal saline at 75 mils per hour. His vital signs are revealing a BP of 138/87 with O2 sats of 97% on room air her rate of 60/m. He is alert and oriented. Temperature is coming down after 975 mg of Tylenol orally. Last recorded temperatures was 99.9. Departure - Departure Time of Disposition: 19:35 Disposition: DC/Tfer to Acute Hospital 02 Condition: Serious Clinical Impression: Cellulitis of right anterior lower leg, Sepsis affecting skin, Morbid obesity Congestive heart failure Qualifiers: Congestive heart failure type: unspecified congestive heart failure type Congestive heart failure chronicity: acute Qualified Code(s): I50.9 - Heart failure, unspecified Sleep apnea syndrome Qualifiers: Sleep apnea type: central sleep apnea associated with underlying condition Qualified Code(s): G47.37 - Central sleep apnea in conditions classified elsewhere - Discharge Information Referrals: Joe Saab MD [Primary Care Provider] - Forms: ED Department Discharge
[2017-04-26] MEDS ORDERED: Metoclopramide 10 MG/2 ML SDV IVPUSH ONE (15:26)
[2017-04-26] MEDS ORDERED: HYDROmorphone 0.5 MG/0.5 ML Syringe IVPUSH ONE (15:27)
[2017-04-26] MEDS ORDERED: Sodium Chloride 0.9% 1,000 ML IV SCH (15:30)
[2017-04-26] MEDS ORDERED: Linezolid 600 MG in Premix Bag 1 BAG IV ONE (15:41)
[2017-04-26] MEDS ORDERED: Ondansetron 4 MG Tab.DIS PO ONE (15:59)
[2017-04-26] MEDS ORDERED: Acetaminophen 325 MG Tab PO SCH (16:00)
--- NOTE | 2017-04-26 16:45 | PCM.SN ---
- Free Text/Narrative Note: Start: 1615 Stop: 1640 Anesthesia requested for IV start and blood draw for blood cultures. 20 gauge to left inner wrist times one attempt, with blood drawn from IV prior to 10ml's of NS flushed easily through. Blood also drawn from right inner wrist via blood culture protocol.
--- NOTE | 2017-04-26 16:55 | CR ---
Chest: Portable view of the chest was obtained. Comparison: No prior chest x-ray. Heart size at the upper limits of normal but accentuated from portable technique. Lungs are clear with no pneumonia. Bony structures are grossly intact. Impression: 1. Nothing acute is identified on portable chest x-ray. Diagnostic code #1
[2017-04-26] MEDS ORDERED: Naloxone 2 MG/2 ML Syringe ONE (16:59)
[2017-04-26] MEDS ORDERED: Furosemide 40 MG/4 ML VIAL IVPUSH ONE (17:39)
[2017-04-26 19:18] VITALS: BP 109/67
[2017-04-26] MEDS ORDERED: diphenhydrAMINE 50 MG/ML SDV IVPUSH ONE (19:18)
== END 2017-04-26 19:40 ==
LOC: JD.ED 15:02
DX: L03.115 Cellulitis of right lower limb (principal); L02.415 Cutaneous abscess of right lower limb; I11.0 Hypertensive heart disease with heart failure; I50.9 Heart failure, unspecified; G47.37 Central sleep apnea in conditions classified elsewhere; E66.01 Morbid (severe) obesity due to excess calories; Z68.43 Body mass index [BMI] 50.0-59.9, adult; E78.00 Pure hypercholesterolemia, unspecified; Z79.899 Other long term (current) drug therapy; Z88.1 Allergy status to other antibiotic agents; Z88.6 Allergy status to analgesic agent; Z88.8 Allergy status to other drugs, medicaments and biological substances; Z91.040 Latex allergy status; Z91.018 Allergy to other foods; Z91.012 Allergy to eggs
CPT/HCPCS: 36415; 71010; 80053; 81001; 82550; 83605; 83880; 85025; 86140; 87040; 87641; 93005; 96365; 96375; 99285; A9270; J1170; J1200; J1940; J2020; J2765; J7040; 93010

== ENCOUNTER 2017-10-07 13:57 | Emergency (ER) | payer MEDICARE, MEDICAID ==
[2017-10-07 14:11] VITALS: BP 124/94
[2017-10-07] MEDS ORDERED: Famotidine 20 MG Tab PO ONE (14:42)
[2017-10-07] MEDS ORDERED: diphenhydrAMINE 50 MG/ML SDV IM ONE (14:42)
--- NOTE | 2017-10-07 14:52 | EDM.PDOC ---
ED HPI GENERAL MEDICAL PROBLEM - General Chief Complaint: General Stated Complaint: ALLERGIC REACTION Time Seen by Provider: 10/07/17 14:05 Source of Information: Reports: Patient, Family (mother) History Limitations: Reports: No Limitations - History of Present Illness INITIAL COMMENTS - FREE TEXT/NARRATIVE: 37-year-old male by his mother for evaluation and treatment of what he feels is allergic reaction. Patient states he had some dental work done on . He feels that he is having a reaction to the Novocain. States Sunday he developed dizziness and numbness and tingling to his entire body. He did feel nauseous earlier and vomited one time prior to arrival but has no current nausea. Reports he has not had much to eat today, only a few barbadian fries and some caramel ice cream for breakfast. He does feel hungry. Denies any chest pain , shortness of breath, throat pain or swelling, cough, fevers or chills. Patient reports that he has double vision at times it does not have any currently. Patient's mother is also very concerned about possible cellulitis. He has multiple sores to his legs. He has a history of cellulitis and He has been admitted to the hospital numerous occasions. Currently has an area to his right lateral leg that is concerning. - Related Data Allergies Allergy/AdvReac Type Severity Reaction Status Date / Time carbetapentane citrate Allergy Other Verified 10/07/17 14:06 [From Gentex 30] guaifenesin [From Gentex 30] Allergy Other Verified 10/07/17 14:06 kiwi Allergy Other Verified 10/07/17 14:06 latex Allergy Hives Verified 10/07/17 14:06 phenylephrine HCl Allergy Other Verified 10/07/17 14:06 [From Gentex 30] pineapple Allergy Difficulty Verified 10/07/17 14:06 Breathing strawberry Allergy Other Verified 10/07/17 14:06 egg yolk AdvReac Nausea Verified 10/07/17 14:06 Fish Containing Products AdvReac Nausea Verified 10/07/17 14:06 "anesthesia" Allergy Other Uncoded 04/26/17 15:14 gentamycin Allergy Other Uncoded 04/26/17 15:14 nuts Allergy Rectal Uncoded 04/26/17 15:14 Bleeding Home Meds: Home Meds Acetaminophen [Tylenol Extra Strength] 500 mg PO Q4H PRN 11/05/16 [History] Calcium Carbonate [Calcium] 600 mg PO BID 11/05/16 [History] Fish Oil/[place]-3 Fatty Acids [Fish Oil 1,000 MG] 1,000 mg PO BEDTIME 11/05/16 [ History] Fluticasone/Salmeterol [Advair 250-50 Diskus] 1 - 2 puff INH BID 11/05/16 [ History] Folic Acid 1 mg PO DAILY 11/05/16 [History] Levalbuterol Tartrate [Xopenex Hfa] 1 - 2 puff INH ASDIRECTED 11/05/16 [History] Losartan/Hydrochlorothiazide [Losartan-HCTZ 50-12.5 MG] 1 tab PO DAILY 11/05/16 [History] PARoxetine [Paxil] 20 mg PO DAILY 11/05/16 [History] Simethicone 125 mg PO ASDIRECTED 11/05/16 [History] Ubidecarenone [Coq10] 100 mg PO BEDTIME 11/05/16 [History] Cholecalciferol (Vitamin D3) [Vitamin D] 50,000 units PO WEEKLY 11/06/16 [ History] Docusate Sodium [Colace] 100 mg PO BID 11/06/16 [History] Omeprazole 20 mg PO DAILY 11/06/16 [History] Furosemide [Lasix] 40 mg PO DAILY PRN #20 tablet 11/08/16 [Rx] Lactobac Cmb #3/Fos/Pantethine [Probiotic & Acidophilus] 1 each PO TID #21 capsule 11/08/16 [Rx] diphenhydrAMINE HCl/Zinc Acet [Benadryl Itch Stopping Crm] 28.3 gm TP Q4H PRN # 1 cream..g. 11/08/16 [Rx] Doxycycline [Vibramycin] 100 mg PO BID #20 cap 10/07/17 [Rx] Past Medical History HEENT History: Reports: Allergic Rhinitis Cardiovascular History: Reports: Heart Failure, Heart Murmur, High Cholesterol, Hypertension Respiratory History: Reports: Asthma, Other (See Below) Gastrointestinal History: Reports: Colon Polyp, Irritable Bowel Syndrome Psychiatric History: Reports: Anxiety Dermatologic History: Reports: Psoriasis - Infectious Disease History Infectious Disease History: Reports: Chicken Pox - Past Surgical History HEENT Surgical History: Reports: Adenoidectomy, Myringotomy w Tube(s), Other ( See Below) Other HEENT Surgeries/Procedures: reconstructive ear surgeries and wisdom teeth removal GI Surgical History: Reports: None Dermatological Surgical History: Reports: None Social & Family History - Family History Family Medical History: Noncontributory - Tobacco Use Smoking Status *Q: Never Smoker - Caffeine Use Caffeine Use: Reports: Soda, Tea Other Caffeine Use: on occassion pop - Living Situation & Occupation Living situation: Reports: Single Occupation: Employed (Works nights. Resides with his mother.) ED ROS GENERAL - Review of Systems Review Of Systems: See Below Constitutional: Reports: Malaise. Denies: Fever, Chills HEENT: Denies: Throat Pain, Throat Swelling Respiratory: Denies: Shortness of Breath, Cough Cardiovascular: Denies: Chest Pain GI/Abdominal: Reports: Nausea, Vomiting. Denies: Abdominal Pain Neurological: Reports: Dizziness, Numbness, Tingling. Denies: Syncope ED EXAM, GENERAL - Physical Exam Exam: See Below Exam Limited By: No Limitations General Appearance: Alert, WD/WN, No Apparent Distress, Obese Eye Exam: Bilateral Eye: Normal Inspection, PERRL Ears: Normal External Exam Nose: Normal Inspection Throat/Mouth: Normal Inspection, Normal Lips, Normal Voice, No Airway Compromise Respiratory/Chest: No Respiratory Distress, Lungs Clear, Normal Breath Sounds Cardiovascular: Normal Peripheral Pulses, Regular Rate, Rhythm, No Murmur Back Exam: Normal Inspection Extremities: Normal Inspection Neurological: Oriented, Normal Cognition Psychiatric: Normal Affect, Normal Mood Skin Exam: Warm, Dry, Normal Color, Other (multiple healed sores to the back and bilateral legs; approximately 2cm open area to the right lateral leg with minor surrounding erythema, no swelling) Course - Vital Signs Last Recorded V/S: Last Vital Signs Temp 36.9 C 10/07/17 14:06 Pulse 82 10/07/17 14:06 Resp 18 10/07/17 14:06 BP 124/94 H 10/07/17 14:06 Pulse Ox 95 10/07/17 14:06 Orthostatic Blood Pressure [ 137/99 Standing] Orthostatic Blood Pressure [ 134/86 Sitting] - Orders/Labs/Meds Labs: Laboratory Tests 10/07/17 10/07/17 Range/Units 15:00 15:00 WBC 7.80 (4.23-9.07) K/mm3 RBC 5.20 (4.63-6.08) M/mm3 Hgb 15.4 (13.7-17.5) gm/L Hct 45.8 (40.1-51.0) % MCV 88.1 (79.0-92.2) fl MCH 29.6 (25.7-32.2) pg MCHC 33.6 (32.2-35.5) g/dl RDW Std Deviation 44.3 H (35.1-43.9) fL Plt Count 240 (163-337) K/mm3 MPV 9.2 L (9.4-12.3) fl Neut % (Auto) 60.5 (34.0-67.9) % Lymph % (Auto) 23.3 (21.8-53.1) % [place] % (Auto) 10.1 (5.3-12.2) % Eos % (Auto) 4.5 (0.8-7.0) Baso % (Auto) 1.2 (0.1-1.2) % Neut # (Auto) 4.72 (1.78-5.38) K/mm3 Lymph # (Auto) 1.82 (1.32-3.57) K/mm3 [place] # (Auto) 0.79 (0.30-0.82) K/mm3 Eos # (Auto) 0.35 (0.04-0.54) K/mm3 Baso # (Auto) 0.09 H (0.01-0.08) K/mm3 Manual Slide Review Normal smear Sodium 138 (136-145) mEq/L Potassium 4.2 (3.5-5.1) mEq/L Chloride 103 (98-107) mEq/L Carbon Dioxide 25 (21-32) mEq/L Anion Gap 14.2 (5-15) BUN 10 (7-18) mg/dL Creatinine 1.1 (0.7-1.3) mg/dL Est Cr Clr Drug Dosing TNP Estimated GFR (MDRD) > 60 (>60) mL/min BUN/Creatinine Ratio 9.1 L (14-18) Glucose 108 H (74-106) mg/dL Calcium 9.6 (8.5-10.1) mg/dL Meds: Medications Discontinued Medications Generic Name Dose Route Start Last Admin Trade Name Freq PRN Reason Stop Dose Admin Diphenhydramine HCl 50 mg 05/13/18 14:42 10/07/17 14:47 Benadryl IM 10/07/17 14:43 50 mg ONETIME ONE Administration Famotidine 20 mg 10/07/17 14:42 10/07/17 14:47 Pepcid PO 10/07/17 14:43 20 mg ONETIME ONE Administration - Re-Assessments/Exams Free Text/Narrative Re-Assessment/Exam: 10/07/17 16:39 Patient continues to complain of dizziness, numbness and tingling to the body. Vitals are normal. CBC and BMP are normal. Patient refused to lie in bed to do Orthostatics. I do feel that his symptoms are likely from not having anything to eat today. Also possibly anxiety. I will start him on some doxycycline possible early cellulitis to the right lateral thigh. He is instructed to follow-up with his primary care provider. Discharge instructions as documented. Departure - Departure Time of Disposition: 16:47 Disposition: Home, Self-Care 01 Condition: Fair Clinical Impression: Cellulitis of right leg - Discharge Information Prescriptions: Doxycycline [Vibramycin] 100 mg PO BID #20 cap Instructions: Cellulitis, Adult, [id number] Referrals: Joe Saab MD [Primary Care Provider] - Forms: ED Department Discharge Additional Instructions: Take doxycycline 1 Twice a day for 10 days. Rest. Make sure drink plenty of fluids. drink water, Gatorade, Powerade or Pedialyte. Make sure you eat today. Recommend follow-up with your primary care provider this week for recheck of your symptoms.
== END 2017-10-07 17:02 | disposition home or self-care (01) ==
LOC: JD.ED 13:57
DX: L03.115 Cellulitis of right lower limb (principal); I11.0 Hypertensive heart disease with heart failure; I50.9 Heart failure, unspecified; J45.909 Unspecified asthma, uncomplicated; F41.9 Anxiety disorder, unspecified; E78.00 Pure hypercholesterolemia, unspecified; Z88.8 Allergy status to other drugs, medicaments and biological substances; Z91.040 Latex allergy status; Z91.018 Allergy to other foods; Z79.899 Other long term (current) drug therapy
CPT/HCPCS: 36415; 80048; 85025; 96372; 99283; A9270; J1200

== ENCOUNTER 2017-10-08 13:58 | Inpatient (IN) | payer MEDICARE, MEDICAID ==
[2017-10-08] MEDS ORDERED: Sodium Chloride 0.9% 10 ML Syringe FLUSH PRN (15:01)
--- NOTE | 2017-10-08 15:06 | EDM.PDOC ---
ED HPI GENERAL MEDICAL PROBLEM - General Chief Complaint: Gastrointestinal Problem Stated Complaint: [facility] Time Seen by Provider: 10/08/17 14:44 Source of Information: Reports: Patient, Family History Limitations: Reports: Altered Mental Status - History of Present Illness INITIAL COMMENTS - FREE TEXT/NARRATIVE: This is a 37 yo white male with past medical hx/o Allergic Rhinitis, HTN, HLD, Asthma, IBD, Anxiety, Psoriasis, Johnston Palsy, Valvular Heart Disease, MR and Morbid Obesity with BMI of 56.5 who comes in with complaints of AMS. Patient unable to provide pertinent information so HPI was primarily provided by family at bedside. Patient carries a hx/o developmental delays. He comes to the ED today due to not being himself. He was seen yesterday here in ED for allergic reaction and was diagnosed with cellulitis. He was given benadryl and doxy for medical management. However, he did not improve. Family states the patient did not have a appetite and was forced to eat mcdonalds today by is mother only to vomit it up. They question if he is overly tired since he has not been sleeping well as of recent. Hes had two episodes of diarrhea today as well with no blood. Family states he fell twice a day possibly hitting his head. Bilateral Shoulder Pain Score (Numeric/FACES): 7 - Related Data Allergies Allergy/AdvReac Type Severity Reaction Status Date / Time carbetapentane citrate Allergy Other Verified 10/08/17 14:09 [From Gentex 30] gentamicin Allergy Other Verified 10/09/17 10:00 guaifenesin [From Gentex 30] Allergy Other Verified 10/08/17 14:09 Inhaled Anesthetics (Halogen Allergy Other Verified 10/09/17 10:04 Based) kiwi Allergy Other Verified 10/08/17 14:09 latex Allergy Hives Verified 10/08/17 14:09 phenylephrine HCl Allergy Other Verified 10/08/17 14:09 [From Gentex 30] pineapple Allergy Difficulty Verified 10/08/17 14:09 Breathing strawberry Allergy Other Verified 10/08/17 14:09 egg yolk AdvReac Nausea Verified 10/08/17 14:09 Fish Containing Products AdvReac Nausea Verified 10/08/17 14:09 nut - unspecified AdvReac Rectal Verified 10/09/17 10:01 Bleeding nuts Allergy Rectal Uncoded 10/08/17 19:47 Bleeding Home Meds: Home Meds Fluticasone/Salmeterol [Advair 250-50 Diskus] 1 - 2 puff INH BID 11/05/16 [ History] Folic Acid 1 mg PO DAILY 11/05/16 [History] PARoxetine [Paxil] 20 mg PO DAILY 11/05/16 [History] Cholecalciferol (Vitamin D3) [Vitamin D] 50,000 units PO WEEKLY 11/06/16 [ History] Docusate Sodium [Colace] 100 mg PO BID 11/06/16 [History] Omeprazole 20 mg PO DAILY 11/06/16 [History] Doxycycline [Vibramycin] 100 mg PO BID #20 cap 10/07/17 [Rx] Ciprofloxacin/Dexamethasone [Ciprodex Otic Susp] 4 drop EARBOTH DAILY 10/08/17 [ History] Losartan [Cozaar] 50 mg PO DAILY 10/08/17 [History] Potassium Chloride 20 meq PO DAILY 10/08/17 [History] Past Medical History HEENT History: Reports: Allergic Rhinitis Cardiovascular History: Reports: Heart Failure, Heart Murmur, High Cholesterol, Hypertension Respiratory History: Reports: Asthma, Other (See Below) Gastrointestinal History: Reports: Colon Polyp, Irritable Bowel Syndrome Psychiatric History: Reports: Anxiety Dermatologic History: Reports: Psoriasis - Infectious Disease History Infectious Disease History: Reports: Chicken Pox - Past Surgical History HEENT Surgical History: Reports: Adenoidectomy, Myringotomy w Tube(s), Other ( See Below) Other HEENT Surgeries/Procedures: reconstructive ear surgeries and wisdom teeth removal GI Surgical History: Reports: None Dermatological Surgical History: Reports: None Social & Family History - Family History Family Medical History: Noncontributory - Tobacco Use Smoking Status *Q: Never Smoker - Caffeine Use Caffeine Use: Reports: Soda, Tea Other Caffeine Use: on occassion pop - Living Situation & Occupation Living situation: Reports: Single Occupation: Employed (Works nights. 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 unable to check eomi non cooperative. ) Nose: Normal Inspection Throat/Mouth: Other (Dry oral mucosa with no erythema to the posterior pharynx exudates noted. No trismus, drooling, or deviation of the uvula noted.) Head Exam: Atraumatic, Normocephalic Neck: Normal Inspection, Supple, Tender Midline (Mild tenderness noted with palpation of the midline spine.) Respiratory/Chest: No Respiratory Distress, Lungs Clear, Normal Breath Sounds, No Accessory Muscle Use, Chest Non-Tender Cardiovascular: Normal Peripheral Pulses, Regular Rate, Rhythm, No Murmur GI/Abdominal: Normal Bowel Sounds, Soft, Non-Tender, No Organomegaly, No Distention Neuro Exam (Abbreviated): Slow to Respond, Other (Patient moans and groans during questioning examination. Intermittent and answer questions and follow directions. Patient has facial droop to the left side secondary to Collazo's palsy. Does not follow commands with raising his arms up to check for pronator drift. Slight weakness noted to the left upper extremity iron cutter comparison to the right. Patient does want to lean to the left more than the than the right. When asked to sit up he does so.) Back Exam: Normal Inspection Extremities: Non-Tender, Pedal Edema (Trace bilaterally). No: Increased Warmth , Redness Skin Exam: Warm, Dry, Other (Multiple small scabs to the chest pressure many and lower extremities. Mother states patient does not have a history of recreational drug use and, we will is see spots and get mildly infected.) Course - Vital Signs Last Recorded V/S: Last Vital Signs Temp 99.1 F 10/10/17 08:19 Pulse 81 10/10/17 08:19 Resp 22 H 10/10/17 08:19 BP 97/77 10/10/17 11:54 Pulse Ox 97 10/10/17 08:19 - Orders/Labs/Meds Labs: Laboratory Tests 10/08/17 10/08/17 10/08/17 Range/Units 15:27 15:29 16:10 Sodium 136 (136-145) mEq/L Potassium 5.0 (3.5-5.1) mEq/L Chloride 102 (98-107) mEq/L Carbon Dioxide 24 (21-32) mEq/L Anion Gap 15.0 (5-15) BUN 10 (7-18) mg/dL Creatinine 0.9 (0.7-1.3) mg/dL Est Cr Clr Drug Dosing TNP Estimated GFR (MDRD) > 60 (>60) mL/min BUN/Creatinine Ratio 11.1 L (14-18) Glucose 114 H (74-106) mg/dL Calcium 9.2 (8.5-10.1) mg/dL Total Bilirubin 0.8 (0.2-1.0) mg/dL AST 47 H (15-37) U/L ALT 55 (16-63) U/L Alkaline Phosphatase 72 (46-116) U/L Troponin I < 0.017 (0.00-0.056) ng/mL NT-Pro-B Natriuret Pep (0-125) pg/mL Total Protein 7.5 (6.4-8.2) g/dl Albumin 3.4 (3.4-5.0) g/dl Globulin 4.1 gm/dL Albumin/Globulin Ratio 0.8 L (1-2) TSH 3rd Generation 1.251 (0.358-3.74) uIU/mL Urine Color Yellow (Yellow) Urine Appearance Clear (Clear) Urine pH 5.5 (5.0-8.0) Ur Specific Dorothy > or = 1.030 (1.005-1.030) Urine Protein 2+ H (Negative) Urine Glucose (UA) Negative (Negative) Urine Ketones 1+ H (Negative) Urine Occult Blood Trace-lysed H (Negative) Urine Nitrite Negative (Negative) Urine Bilirubin 1+ H (Negative) Urine Urobilinogen 0.2 (0.2-1.0) Ur Leukocyte Esterase Negative (Negative) Urine RBC 0-5 (0-5) /hpf Urine WBC 0-5 (0-5) /hpf Ur Epithelial Cells 0-5 (0-5) /hpf Amorphous Sediment Many H (NOT SEEN) /hpf Urine Bacteria Moderate H (FEW) /hpf Urine Mucus Not seen (FEW) /hpf Urine Opiates Screen Negative (NEGATIVE) Ur Buprenorphine Scrn Negative (NEGATIVE) Ur Oxycodone Screen Negative (NEGATIVE) Urine Methadone Screen Negative (NEGATIVE) Ur Propoxyphene Screen Negative (NEGATIVE) Ur Barbiturates Screen Negative (NEGATIVE) Ur Tricyclics Screen Negative (NEGATIVE) Ur Phencyclidine Scrn Negative (NEGATIVE) Ur Amphetamine Screen Negative (NEGATIVE) U Methamphetamines Scrn Negative (NEGATIVE) U Benzodiazepines Scrn Negative (NEGATIVE) U Cocaine Metab Screen Negative (NEGATIVE) U Marijuana (THC) Screen Negative (NEGATIVE) 10/08/17 Range/Units 16:10 Sodium (136-145) mEq/L Potassium (3.5-5.1) mEq/L Chloride (98-107) mEq/L Carbon Dioxide (21-32) mEq/L Anion Gap (5-15) BUN (7-18) mg/dL Creatinine (0.7-1.3) mg/dL Est Cr Clr Drug Dosing Estimated GFR (MDRD) (>60) mL/min BUN/Creatinine Ratio (14-18) Glucose (74-106) mg/dL Calcium (8.5-10.1) mg/dL Total Bilirubin (0.2-1.0) mg/dL AST (15-37) U/L ALT (16-63) U/L Alkaline Phosphatase (46-116) U/L Troponin I (0.00-0.056) ng/mL NT-Pro-B Natriuret Pep 75 (0-125) pg/mL Total Protein (6.4-8.2) g/dl Albumin (3.4-5.0) g/dl Globulin gm/dL Albumin/Globulin Ratio (1-2) TSH 3rd Generation (0.358-3.74) uIU/mL Urine Color (Yellow) Urine Appearance (Clear) Urine pH (5.0-8.0) Ur Specific Dorothy (1.005-1.030) Urine Protein (Negative) Urine Glucose (UA) (Negative) Urine Ketones (Negative) Urine Occult Blood (Negative) Urine Nitrite (Negative) Urine Bilirubin (Negative) Urine Urobilinogen (0.2-1.0) Ur Leukocyte Esterase (Negative) Urine RBC (0-5) /hpf Urine WBC (0-5) /hpf Ur Epithelial Cells (0-5) /hpf Amorphous Sediment (NOT SEEN) /hpf Urine Bacteria (FEW) /hpf Urine Mucus (FEW) /hpf Urine Opiates Screen (NEGATIVE) Ur Buprenorphine Scrn (NEGATIVE) Ur Oxycodone Screen (NEGATIVE) Urine Methadone Screen (NEGATIVE) Ur Propoxyphene Screen (NEGATIVE) Ur Barbiturates Screen (NEGATIVE) Ur Tricyclics Screen (NEGATIVE) Ur Phencyclidine Scrn (NEGATIVE) Ur Amphetamine Screen (NEGATIVE) U Methamphetamines Scrn (NEGATIVE) U Benzodiazepines Scrn (NEGATIVE) U Cocaine Metab Screen (NEGATIVE) U Marijuana (THC) Screen (NEGATIVE) Meds: Medications Discontinued Medications Generic Name Dose Route Start Last Admin Trade Name Freq PRN Reason Stop Dose Admin Acetaminophen 650 mg 10/08/17 21:46 Tylenol PO Q4H PRN Pain (Mild 1-3)/fever Hydrocodone Bitart/Acetaminophen 1 tab 10/08/17 21:46 [place] 325-5 Mg PO Q4H PRN Pain (moderate 4-6) Albuterol/Ipratropium 3 ml 10/08/17 21:46 10/09/17 09:05 Duoneb 3.0-0.5 Mg/3 Ml NEB 3 ml Q4H PRN Administration Shortness Of Breath/wheezing Atropine Sulfate 0.5 mg 10/09/17 23:16 10/09/17 23:33 Atropine IVPUSH 10/09/17 23:17 Not Given ONETIME ONE Atropine Sulfate 0.5 mg 10/09/17 23:19 Atropine IVPUSH 10/09/17 23:20 ONETIME ONE Bisacodyl 5 mg 10/08/17 21:46 Dulcolax PO DAILY PRN Constipation Budesonide 0.5 mg 10/09/17 08:55 10/10/17 05:14 Pulmicort NEB 0.5 mg BIDRT BECK Administration Ciprofloxacin 0 ml 10/09/17 09:00 10/10/17 09:48 Ciloxan 0.3% Ophth Soln EARBOTH 4 drop DAILY BECK Administration Dexamethasone 0 ml 10/09/17 09:00 10/10/17 09:47 Maxidex 0.1% Ophth Susp .XX 4 drop DAILY BECK Administration Dexamethasone 65 mg 10/09/17 22:15 10/09/17 22:51 Dexamethasone IVPUSH 10/10/17 10:16 Not Given Q12H BECK Docusate Sodium 100 mg 10/09/17 09:00 10/10/17 10:08 Colace PO Not Given BID BECK Enoxaparin Sodium 40 mg 10/09/17 09:00 10/10/17 09:51 Lovenox SUBCUT 40 mg Q12H BECK Administration Folic Acid 1 mg 10/09/17 09:00 10/10/17 10:09 Folic Acid PO Not Given DAILY BECK Gadobenate Dimeglumine 20 ml 10/09/17 12:14 10/09/17 13:11 Multihance IVPUSH 10/09/17 12:15 20 ml ONETIME ONE Administration Hydralazine HCl 20 mg 10/08/17 21:45 Apresoline IVPUSH Q4H PRN Hypertension Hydromorphone HCl 1 mg 10/08/17 22:21 Dilaudid IVPUSH Q4H PRN pain Sodium Chloride 1,000 mls @ 250 mls/hr 10/08/17 15:15 10/08/17 15:21 Normal Saline IV 250 mls/hr ASDIRECTED BECK Administration Sodium Chloride 1,000 mls @ 150 mls/hr 10/08/17 19:30 10/09/17 17:11 Normal Saline IV 150 mls/hr ASDIRECTED BECK Administration Promethazine HCl 12.5 mg/ 50.5 mls @ 100 mls/hr 10/08/17 21:46 Sodium Chloride IV Q6H PRN Nausea/Vomiting Sodium Chloride 250 mls @ 500 mls/hr 10/09/17 10:19 Normal Saline IV 10/09/17 16:00 .BOLUS BECK Thiamine HCl 200 mg/ Sodium 102 mls @ 204 mls/hr 10/09/17 13:10 10/09/17 14: 40 Chloride IV 10/09/17 13:11 204 mls/hr ONETIME ONE Administration Ceftriaxone Sodium 2 gm/ 100 mls @ 100 mls/hr 10/09/17 22:00 10/09/17 23:29 Sodium Chloride IV 100 mls/hr Q12H BECK Administration Vancomycin HCl 2 gm/ Sodium 500 mls @ 166.667 mls/hr 10/10/17 06:00 Chloride IV Q8H BECK Vancomycin HCl 2 gm/ Sodium 500 mls @ 166.667 mls/hr 10/09/17 22:00 10/10/17 00:47 Chloride IV Not Given Q8H BECK Dexamethasone 25 mg/ Sodium 52.5 mls @ 50 mls/hr 10/09/17 22:45 10/10/17 12: 59 Chloride IV 10/10/17 17:47 50 mls/hr Q6H BECK Administration Sodium Chloride Confirm 10/09/17 23:07 10/09/17 23:31 Normal Saline Administered 10/09/17 23:08 50 mls/hr Dose Administration 50 mls @ as directed .ROUTE .STK-MED ONE Vancomycin HCl 2 gm/ Sodium 500 mls @ 166.667 mls/hr 10/10/17 00:00 10/10/17 09:43 Chloride IV 166.667 mls/hr Q8H BECK Administration Ceftriaxone Sodium 2 gm/ 100 mls @ 100 mls/hr 10/10/17 07:36 10/10/17 07:41 Dextrose/Water IV Not Given Q12H BECK Ceftriaxone Sodium 2 gm/ 100 mls @ 100 mls/hr 10/10/17 08:00 10/10/17 08:45 Dextrose/Water IV 100 mls/hr Q12H BECK Administration Acyclovir 1,000 mg/ Sodium 270 mls @ 270 mls/hr 10/10/17 14:00 10/10/17 13:58 Chloride IV 270 mls/hr Q8H BECK Administration Sodium Chloride 1,000 mls @ 75 mls/hr 10/10/17 14:45 Normal Saline IV ASDIRECTED [facility] Ketorolac Tromethamine 30 mg 10/08/17 22:20 10/10/17 05:18 Toradol IVPUSH 30 mg Q6H PRN Administration Pain Lorazepam 2 mg 10/08/17 21:45 Ativan IVPUSH Q4H PRN Seizures Lorazepam 1 mg 10/08/17 21:46 Ativan IV Q6H PRN Anxiety Lorazepam 2 mg 10/09/17 11:00 10/09/17 20:35 Ativan IVPUSH 10/09/17 11:01 Not Given ONETIME ONE Lorazepam 2 mg 10/09/17 10:02 Ativan IVPUSH 10/09/17 16:00 ONETIME PRN procedural sedation Losartan Potassium 50 mg 10/09/17 10:15 10/10/17 10:09 Cozaar PO Not Given DAILY [facility] Magnesium Sulfate 1 dose 10/08/17 21:45 Pharmacy To Dose - Magnesium Replacement .XX ASDIRECTED [facility] Metoprolol Tartrate 5 mg 10/08/17 21:45 Lopressor IVPUSH Q4H PRN Tachycardia Modafinil 200 mg 10/09/17 07:00 10/10/17 06:08 Provigil PO Not Given DAILY@0700 BECK Mometasone Furoate/Formoterol Fumar 0 puff 10/09/17 09:00 Dulera 200-5 Mcg IH BID BECK Neomycin/Polymyxin/Bacitracin 0 gm 10/09/17 09:00 10/10/17 10:09 Neosporin Oint TOP 1 applic BID BECK Administration Non-Formulary Medication 1 tab 10/09/17 09:00 10/09/17 13:42 Hydrochlorothiazide/Losartan PO Not Given DAILY BECK Ondansetron HCl 4 mg 10/08/17 21:46 Zofran IV Q6H PRN Nausea/Vomiting Pantoprazole Sodium 40 mg 10/09/17 09:00 10/10/17 10:09 Protonix PO Not Given DAILY [facility] Paroxetine HCl 20 mg 10/09/17 09:00 10/10/17 10:09 Paxil PO Not Given DAILY [facility] Physostigmine Salicylate 0.5 mg 10/09/17 22:17 10/09/17 23:19 Physostigmine IVPUSH 10/09/17 22:18 0.5 mg ONETIME ONE Administration Polyethylene Glycol 17 gm 10/08/17 21:46 Miralax PO DAILY PRN Constipation Potassium Chloride 20 meq 10/09/17 09:00 10/10/17 10:09 Klor-Con M20 PO Not Given DAILY [facility] Potassium Chloride 1 dose 10/08/17 21:45 Pharmacy To Dose - Potassium Replacement .XX ASDIRECTED BECK Senna/Docusate Sodium 1 tab 10/08/17 21:46 Senna Plus PO BID PRN Constipation Simvastatin 20 mg 10/09/17 21:00 10/09/17 20:40 Zocor PO Not Given BEDTIME BECK Sodium Chloride 10 ml 10/08/17 15:01 10/08/17 15:22 Saline Flush FLUSH 10 ml ASDIRECTED PRN Administration Keep Vein Open Sodium Chloride 10 ml 10/09/17 12:14 10/09/17 13:11 Saline Flush FLUSH 10/09/17 14:00 10 ml ONETIME PRN Administration Keep Vein Open Vancomycin HCl 2,381.355 mg 10/09/17 22:00 10/09/17 22:23 Vancomycin 15 mg/kg (2381.355 mg) Not Given IV Q8H BECK Vancomycin HCl 1 dose 10/09/17 22:00 Pharmacy To Dose - Vancomycin .XX ASDIRECTED [facility] - Re-Assessments/Exams Free Text/Narrative Re-Assessment/Exam: IV established with and asked. Initial lab studies include CBC, chem 14, blood cultures 2, troponin, TSH, UA, chest x-ray one view, EKG, CT of the head, CT cervical spine, EKG, and chest x- ray. EKG sinus rhythm at a rate of [address] changes noted. [place] intervals 172. QTC 427. Chest x-ray: Poor inspiratory intake. Cardiomegaly present. No obvious pulmonary infiltrates noted. CT cervical spine impression. Mild diffuse degenerative changes. Nothing acute is appreciated on CT study of the cervical spine. CT head impression: Findings which are felt to be incidental as noted above. No acute intracranial abnormalities seen. Difficult time in obtaining labs. They were only able to draw enough blood for chemistry panel and blood culture 1. Reviewed yesterday's labs. CBC was essentially normal. Chemistry panel today was essentially normal. With only mildly elevated AST of 47 and glucose 114. Troponin less than 0.017. TSH is 1.251. ProBNP 75. UA specific gravity greater than 1.030. Protein 2+. Ketones 1+. Occult blood trace. Bilirubin 1+. Urine rbc's and only sees within normal limits. Leukocyte Estrace negative. Moderate urine bacteria. Many amorphous sediment. 10/08/17 17:04 Reassessment, patient is unchanged. Vital signs are stable. Patient when asked to open eyes opens mouth instead. [address] Carrera. He believes it maybe related to excessive tiredness as potential differential diagnosis. He agrees to admit to the hospital per family's request. MRI of the head will be obtained tomorrow morning. If family request evaluation by neurologist and the patient would require transfer to [facility]. He has asked me to call him back after discussing this with family. 10/08/17 18:14 I did contact lab they are unable to run the EtOH due to inadequate sample. 10/08/17 18:19 Reassessment, vital signs are stable. On examination patient does moan and states he is having discomfort to his right shoulder to mother. Mother is rubbing it and is relieving some of discomfort. I asked Perry to answer some questions to which he does and goes back to carlos. I offered transfer to [facility] to have neurology consult. Both mother and father requesting admission here with MRI study of the brain tomorrow morning. They' re aware of the limitations with being admitted here with no neurology consult. I believe patient is faking current symptoms. I have discussed with Dr. Carrera he will see patient in the E.D. 10/08/17 18:47 Dr. Carrera has evaluated the patient. Agrees to admit to observation. Patient appears to be faking current symptoms. Per nursing staff patients [facility] meets inpatient. [address] Carrera. Agrees to admit to inpatient since patient qualifies per [facility]. Departure - Departure Time of Disposition: 18:00 Disposition: Admitted As Inpatient 66 Condition: Fair Clinical Impression: Altered level of consciousness - Discharge Information
[2017-10-08] MEDS ORDERED: Sodium Chloride 0.9% 1,000 ML IV SCH (15:15)
--- NOTE | 2017-10-08 15:32 | CT ---
Head CT Technique: Multiple axial sections through the brain were obtained. Intravenous contrast was not utilized. Comparison: Prior MRI brain dated 05/26/16. Findings: Ventricles along with basal cisterns and sulci over the convexities are within normal limits for the patient's age. Small low density finding is noted with the right basal ganglia which is stable from previous MRI and most likely represents a prominent perivascular space as an incidental note. No other abnormal parenchymal densities are seen. No evidence of intracranial hemorrhage. No midline shift or mass effect is seen. No acute calvarial abnormality is seen. Minimal mucosal thickening is partially seen within the left maxillary sinus. Impression: 1. Findings which are felt to be incidental as noted above. No acute intracranial abnormality is seen. Diagnostic code #2
--- NOTE | 2017-10-08 15:37 | CT ---
CT cervical spine Technique: A multiple axial sections were obtained from above C1 inferiorly to the mid T2 level. Reconstructed sagittal and coronal images were reviewed. Comparison: No prior cervical spine imaging is available. Findings: Incomplete posterior arch of C1 is noted which is a normal variant. Mild to moderate disc space narrowing is noted C5-C6, C6-C7, C7-T1 and T1-T2. Endplate osteophytes are seen at these levels as well as at C4-C5. Mild posterior spurring is seen at these levels. No central canal stenosis or neural foraminal stenosis is seen. No fracture is identified. Impression: 1. Mild diffuse degenerative change. 2. Nothing acute is appreciated on CT study of the cervical spine. Diagnostic code #2
[2017-10-08] MEDS: Sodium Chloride 0.9% 1,000 ML IV SCH (19:29)
--- NOTE | 2017-10-08 21:24 | PCM.HP ---
H&P History of Present Illness - General Date of Service: 10/08/17 Admit Problem/Dx: Admission Diagnosis/Problem Admission Diagnosis/Problem Altered level of consciousness Source of Information: Patient, Family, Old Records, Provider, RN Notes Reviewed History Limitations: Reports: Altered Mental Status - History of Present Illness Initial Comments - Free Text/Narative: This is a 37 yo white male with past medical hx/o Allergic Rhinitis, HTN, HLD, Asthma, IBD, Anxiety, Psoriasis, Thurston Palsy, Valvular Heart Disease, MR and Morbid Obesity with BMI of 56.5 who comes in with complaints of AMS. Patient unable to provide pertinent information so HPI was primarily provided by family at bedside. Patient carries a hx/o developmental delays. He is familiar to me from previous admission. He comes to ED today due to not being himself. He was seen yesterday here in ED for allergic reaction and was diagnosed with cellulitis. He was given benadryl and doxy for medical management. However, he did not improve. His initial workup in emergency department shows a fairly unremarkable chemistry with exception of slightly elevated glucose of 114 and AST of 47. His UA and UDS are both negative. Cervical C-spine report reads mild diffuse degenerative change. Nothing acute is appreciated. Head CT scan report reads no acute intra-cranial abnormality is seen. Patient is being admitted for AMS. He is full code. Bilateral Shoulder Pain Score (Numeric/FACES): 7 - Related Data Allergies/Adverse Reactions: Allergies Allergy/AdvReac Type Severity Reaction Status Date / Time carbetapentane citrate Allergy Other Verified 10/08/17 14:09 [From Gentex 30] gentamicin Allergy Other Verified 10/09/17 10:00 guaifenesin [From Gentex 30] Allergy Other Verified 10/08/17 14:09 Inhaled Anesthetics (Halogen Allergy Other Verified 10/09/17 10:04 Based) kiwi Allergy Other Verified 10/08/17 14:09 latex Allergy Hives Verified 10/08/17 14:09 phenylephrine HCl Allergy Other Verified 10/08/17 14:09 [From Gentex 30] pineapple Allergy Difficulty Verified 10/08/17 14:09 Breathing strawberry Allergy Other Verified 10/08/17 14:09 egg yolk AdvReac Nausea Verified 10/08/17 14:09 Fish Containing Products AdvReac Nausea Verified 10/08/17 14:09 nut - unspecified AdvReac Rectal Verified 10/09/17 10:01 Bleeding nuts Allergy Rectal Uncoded 10/08/17 19:47 Bleeding Home Medications: Home Meds Fluticasone/Salmeterol [Advair 250-50 Diskus] 1 - 2 puff INH BID 11/05/16 [ History] Folic Acid 1 mg PO DAILY 11/05/16 [History] PARoxetine [Paxil] 20 mg PO DAILY 11/05/16 [History] Cholecalciferol (Vitamin D3) [Vitamin D] 50,000 units PO WEEKLY 11/06/16 [ History] Docusate Sodium [Colace] 100 mg PO BID 11/06/16 [History] Omeprazole 20 mg PO DAILY 11/06/16 [History] Doxycycline [Vibramycin] 100 mg PO BID #20 cap 10/07/17 [Rx] Ciprofloxacin/Dexamethasone [Ciprodex Otic Susp] 4 drop EARBOTH DAILY 10/08/17 [ History] Losartan [Cozaar] 50 mg PO DAILY 10/08/17 [History] Potassium Chloride 20 meq PO DAILY 10/08/17 [History] Past Medical History HEENT History: Reports: Allergic Rhinitis Cardiovascular History: Reports: Heart Failure, Heart Murmur, High Cholesterol, Hypertension Respiratory History: Reports: Asthma, Other (See Below) Gastrointestinal History: Reports: Colon Polyp, Irritable Bowel Syndrome Psychiatric History: Reports: Anxiety Dermatologic History: Reports: Psoriasis - Infectious Disease History Infectious Disease History: Reports: Chicken Pox - Past Surgical History HEENT Surgical History: Reports: Adenoidectomy, Myringotomy w Tube(s), Other ( See Below) Other HEENT Surgeries/Procedures: reconstructive ear surgeries and wisdom teeth removal GI Surgical History: Reports: None Dermatological Surgical History: Reports: None Social & Family History - Family History Family Medical History: Noncontributory - Tobacco Use Smoking Status *Q: Never Smoker - Caffeine Use Caffeine Use: Reports: Soda, Tea Other Caffeine Use: on occassion pop - Living Situation & Occupation Living situation: Reports: Single Occupation: Employed (Works nights. Resides with his mother.) H&P Review of Systems - Review of Systems: Review Of Systems: Unable To Obtain Exam - Exam Exam: See Below - Vital Signs Vital Signs: Last Vital Signs Temp 36.7 C 10/08/17 14:05 Pulse 94 10/08/17 14:05 Resp 20 10/08/17 14:05 BP 132/90 10/08/17 14:05 Pulse Ox 98 10/08/17 14:05 Weight: 158.757 kg - Exam General: Sedated, Other (Morbidly Obese) HEENT: Pupils Equal, Pupils Reactive, Other (Dilated but reactive) Neck: Trachea Midline, Other (short and thick) Cardiovascular: Regular Rate, Regular Rhythm GI/Abdominal Exam: Normal Bowel Sounds, Soft, Non-Tender, No Organomegaly, No Distention, No Abnormal Bruit, No Mass (Male) Exam: Deferred Rectal (Males) Exam: Deferred Back Exam: Normal Inspection Extremities: Normal Inspection, No Pedal Edema, Normal Capillary Refill Peripheral Pulses: 3+: Dorsalis Pedis (L), Dorsalis Pedis (R) Skin: Warm, Dry, Intact Neuro Extensive - Mental Status: Withdraws to Pain. No: Opens Eyes to Commands Neuro Extensive - Motor, Sensory, Reflexes: Other (Unable to perform) Psychiatric: Alert, Other - Patient Data Lab Results Last 24 hrs: Laboratory Results - last 24 hr 10/08/17 10/08/17 10/08/17 Range/Units 15:27 15:29 16:10 Sodium 136 (136-145) mEq/L Potassium 5.0 (3.5-5.1) mEq/L Chloride 102 (98-107) mEq/L Carbon Dioxide 24 (21-32) mEq/L Anion Gap 15.0 (5-15) BUN 10 (7-18) mg/dL Creatinine 0.9 (0.7-1.3) mg/dL Est Cr Clr Drug Dosing TNP Estimated GFR (MDRD) > 60 (>60) mL/min BUN/Creatinine Ratio 11.1 L (14-18) Glucose 114 H (74-106) mg/dL Calcium 9.2 (8.5-10.1) mg/dL Total Bilirubin 0.8 (0.2-1.0) mg/dL AST 47 H (15-37) U/L ALT 55 (16-63) U/L Alkaline Phosphatase 72 (46-116) U/L Troponin I < 0.017 (0.00-0.056) ng/mL NT-Pro-B Natriuret Pep (0-125) pg/mL Total Protein 7.5 (6.4-8.2) g/dl Albumin 3.4 (3.4-5.0) g/dl Globulin 4.1 gm/dL Albumin/Globulin Ratio 0.8 L (1-2) TSH 3rd Generation 1.251 (0.358-3.74) uIU/mL Urine Color Yellow (Yellow) Urine Appearance Clear (Clear) Urine pH 5.5 (5.0-8.0) Ur Specific [place] > or = 1.030 (1.005-1.030) Urine Protein 2+ H (Negative) Urine Glucose (UA) Negative (Negative) Urine Ketones 1+ H (Negative) Urine Occult Blood Trace-lysed H (Negative) Urine Nitrite Negative (Negative) Urine Bilirubin 1+ H (Negative) Urine Urobilinogen 0.2 (0.2-1.0) Ur Leukocyte Esterase Negative (Negative) Urine RBC 0-5 (0-5) /hpf Urine WBC 0-5 (0-5) /hpf Ur Epithelial Cells 0-5 (0-5) /hpf Amorphous Sediment Many H (NOT SEEN) /hpf Urine Bacteria Moderate H (FEW) /hpf Urine Mucus Not seen (FEW) /hpf Urine Opiates Screen Negative (NEGATIVE) Ur Buprenorphine Scrn Negative (NEGATIVE) Ur Oxycodone Screen Negative (NEGATIVE) Urine Methadone Screen Negative (NEGATIVE) Ur Propoxyphene Screen Negative (NEGATIVE) Ur Barbiturates Screen Negative (NEGATIVE) Ur Tricyclics Screen Negative (NEGATIVE) Ur Phencyclidine Scrn Negative (NEGATIVE) Ur Amphetamine Screen Negative (NEGATIVE) U Methamphetamines Scrn Negative (NEGATIVE) U Benzodiazepines Scrn Negative (NEGATIVE) U Cocaine Metab Screen Negative (NEGATIVE) U Marijuana (THC) Screen Negative (NEGATIVE) 10/08/17 Range/Units 16:10 Sodium (136-145) mEq/L Potassium (3.5-5.1) mEq/L Chloride (98-107) mEq/L Carbon Dioxide (21-32) mEq/L Anion Gap (5-15) BUN (7-18) mg/dL Creatinine (0.7-1.3) mg/dL Est Cr Clr Drug Dosing Estimated GFR (MDRD) (>60) mL/min BUN/Creatinine Ratio (14-18) Glucose (74-106) mg/dL Calcium (8.5-10.1) mg/dL Total Bilirubin (0.2-1.0) mg/dL AST (15-37) U/L ALT (16-63) U/L Alkaline Phosphatase (46-116) U/L Troponin I (0.00-0.056) ng/mL NT-Pro-B Natriuret Pep 75 (0-125) pg/mL Total Protein (6.4-8.2) g/dl Albumin (3.4-5.0) g/dl Globulin gm/dL Albumin/Globulin Ratio (1-2) TSH 3rd Generation (0.358-3.74) uIU/mL Urine Color (Yellow) Urine Appearance (Clear) Urine pH (5.0-8.0) Ur Specific [place] (1.005-1.030) Urine Protein (Negative) Urine Glucose (UA) (Negative) Urine Ketones (Negative) Urine Occult Blood (Negative) Urine Nitrite (Negative) Urine Bilirubin (Negative) Urine Urobilinogen (0.2-1.0) Ur Leukocyte Esterase (Negative) Urine RBC (0-5) /hpf Urine WBC (0-5) /hpf Ur Epithelial Cells (0-5) /hpf Amorphous Sediment (NOT SEEN) /hpf Urine Bacteria (FEW) /hpf Urine Mucus (FEW) /hpf Urine Opiates Screen (NEGATIVE) Ur Buprenorphine Scrn (NEGATIVE) Ur Oxycodone Screen (NEGATIVE) Urine Methadone Screen (NEGATIVE) Ur Propoxyphene Screen (NEGATIVE) Ur Barbiturates Screen (NEGATIVE) Ur Tricyclics Screen (NEGATIVE) Ur Phencyclidine Scrn (NEGATIVE) Ur Amphetamine Screen (NEGATIVE) U Methamphetamines Scrn (NEGATIVE) U Benzodiazepines Scrn (NEGATIVE) U Cocaine Metab Screen (NEGATIVE) U Marijuana (THC) Screen (NEGATIVE) Result Diagrams: 10/09/17 05:56 10/09/17 05:56 Problem List Initiated/Reviewed/Updated: Yes Orders Last 24hrs: Active Orders 24 hr Category Date Time Status Admission Status [Patient Status] [ADT] Routine ADT 10/08/17 20:03 Active Cardiac Monitoring [RC] . DIRECTED Care 10/08/17 20:03 Active EKG 12 Lead [EKG Documentation Completion] [RC] STAT Care 10/08/17 14:57 Active Peripheral IV Care [RC] . DIRECTED Care 10/08/17 15:01 Active Urinary Catheter Assessment [RC] ASDIRECTED Care 10/08/17 15:32 Active Urinary Catheter Insertion [Insert Urinary Catheter] [ Care 10/08/17 15:32 Ordered OM.PC] Stat Regular Diet [DIET] Diet 10/08/17 Dinner Ordered Chest 1V Frontal [CR] Stat Exams 10/08/17 14:57 Taken CBC WITH MANUAL DIFF [HEME] Stat Lab 10/08/17 14:57 Ordered CULTURE BLOOD [BC] Stat Lab 10/08/17 14:58 Ordered CULTURE BLOOD [BC] Stat Lab 10/08/17 14:58 Ordered ETOH [ETHANOL BLOOD MEDICAL] [CHEM] Stat Lab 10/08/17 17:21 Ordered PRO B-TYPE NATRIUR PEPT,BNPPRO [CHEM] Stat Lab 10/08/17 16:10 Ordered UA W/MICROSCOPIC [URIN] Stat Lab 10/08/17 15:29 Ordered VITAMIN D 25-HYROXY (D2, D3) [REF] Stat Lab 10/08/17 21:10 Ordered Ciprofloxacin/Dexamethasone Med 10/09/17 09:00 Ordered 4 drop EARBOTH DAILY Docusate Sodium [Colace] Med 10/09/17 09:00 Ordered 100 mg PO BID Fluticasone/Salmeterol Med 10/09/17 09:00 Ordered 1 - 2 puff INH BID Folic Acid Med 10/09/17 09:00 Ordered 1 mg PO DAILY Hydrochlorothiazide/Losartan Med 10/09/17 09:00 Ordered 1 tab PO DAILY Losartan Med 10/09/17 09:00 Ordered 50 mg PO DAILY Omeprazole [Omeprazole] Med 10/09/17 09:00 Ordered 20 mg PO DAILY PARoxetine [Paxil] Med 10/09/17 09:00 Ordered 20 mg PO DAILY Potassium Chloride [Potassium Chloride] Med 10/09/17 09:00 Ordered 20 meq PO DAILY Sodium Chloride 0.9% [Normal Saline] 1,000 ml Med 10/08/17 15:15 Active IV ASDIRECTED Sodium Chloride 0.9% [Normal Saline] 1,000 ml Med 10/08/17 19:30 Active IV ASDIRECTED Sodium Chloride 0.9% [Saline Flush] Med 10/08/17 15:01 Active 10 ml FLUSH ASDIRECTED PRN Blood Culture x2 Reflex Set [OM.PC] Stat Oth 10/08/17 14:57 Ordered Peripheral IV Insertion Adult [OM.PC] Routine Oth 10/08/17 15:01 Ordered Medication Orders Docusate Sodium (Colace) 100 mg PO BID [facility] Folic Acid (Folic Acid) 1 mg PO DAILY BECK Sodium Chloride (Normal Saline) 1,000 mls @ 250 mls/hr IV ASDIRECTED BECK Last Admin: 10/08/17 15:21 Dose: 250 mls/hr Sodium Chloride (Normal Saline) 1,000 mls @ 150 mls/hr IV ASDIRECTED BECK Last Admin: 10/08/17 19:29 Dose: 150 mls/hr Non-Formulary Medication (Ciprofloxacin/Dexamethasone) 4 drop EARBOTH DAILY BECK Non-Formulary Medication (Fluticasone/Salmeterol) 1 - 2 puff INH BID BECK Non-Formulary Medication (Hydrochlorothiazide/Losartan) 1 tab PO DAILY BECK Non-Formulary Medication (Losartan) 50 mg PO DAILY BECK Non-Formulary Medication (Omeprazole [Omeprazole]) 20 mg PO DAILY BECK Non-Formulary Medication (Potassium Chloride [Potassium Chloride]) 20 meq PO DAILY BECK Paroxetine HCl (Paxil) 20 mg PO DAILY BECK Sodium Chloride (Saline Flush) 10 ml FLUSH ASDIRECTED PRN PRN Reason: Keep Vein Open Last Admin: 10/08/17 15:22 Dose: 10 ml Assessment/Plan Comment:: Assessment/Plan: Acute: AMS - Unclear in etiology - Chemistry unremarkable; UDS and UA negative - CXR and Head CT scan negative for acute abnormal findings - Vitals Stable; 98% O2 on sat on RA - Hold Vit D and Doxy (can cause Intra-cranial HTN) - Consider stimulant and +/- MRI if he tolerates in AM Right Thigh Wound - On Doxy-hold for now - Consider topical antibiotic and wound care - PT for wound care Probable [facility]ANNY - BMI 56.5; was 36 < than a year ago - Advised [facility] - He needs sleep study Morbid Obesity - Worsening - BMI now 56.5 - Dietary consult - Would not recommend Belviq due to hx/o valvulopathy High Fall Risk due to Morbid Obesity Chronic: Allergic Rhinits HTN HLD Asthma IBD Anxiety Psoriasis Thur[place] Palsy Valvular Heart Disease Plan: Admit to [facility] Resume Home Meds except Vit D and Doxy Routine AM Labs Aspiration and Fall Precautions PT/OT/Dietary Consult SW/CM for d/c planning Code status: 1
[2017-10-08] MEDS ORDERED: LORazepam 2 MG/ML SDV IVPUSH PRN (21:45)
[2017-10-08] MEDS ORDERED: hydrALAZINE 20 MG/ML SDV IVPUSH PRN (21:45)
[2017-10-08] MEDS ORDERED: Metoprolol Tartrate 5 MG/5 ML SDV IVPUSH PRN (21:45)
[2017-10-08] MEDS ORDERED: Ondansetron 4 MG/2 ML SDV IV PRN (21:46)
[2017-10-08] MEDS ORDERED: Albuterol/Ipratropium 3.0-0.5 MG/3 ML Neb Soln NEB PRN (21:46)
[2017-10-08] MEDS ORDERED: Polyethylene Glycol 3350 Powder 17 GM Packet PO PRN (21:46)
[2017-10-08] MEDS ORDERED: Acetaminophen 325 MG Tab PO PRN (21:46)
[2017-10-08] MEDS ORDERED: Acetaminophen/HYDROcodone 325-5 MG Tab PO PRN (21:46)
[2017-10-08] MEDS ORDERED: Promethazine 12.5 MG in Sodium Chloride 0.9% 50 ML IV PRN (21:46)
[2017-10-08] MEDS ORDERED: Bisacodyl 5 MG Tab PO PRN (21:46)
[2017-10-08] MEDS ORDERED: LORazepam 2 MG/ML SDV IV PRN (21:46)
[2017-10-08] MEDS ORDERED: HYDROmorphone 0.5 MG/0.5 ML SYRINGE IVPUSH PRN (22:21)
--- NOTE | 2017-10-08 23:48 | PCM.SN ---
- Free Text/Narrative Note: Anesthesia Note: Start: 2309 Stop: 2344 Anesthesia requested for assistance for lab draws. Blood volume obtained with 3 sticks.
[2017-10-09] MEDS: Sodium Chloride 0.9% 1,000 ML IV SCH ×3 (02:50→17:11)
[2017-10-09] MEDS: Ketorolac 30 MG/ML SDV IVPUSH PRN (02:51)
[2017-10-09] MEDS: Modafinil 200 MG Tab PO SCH ×2 (06:38→13:54)
--- NOTE | 2017-10-09 06:52 | CR ---
Chest: Portable view of the chest was obtained. Comparison: Prior chest x-ray of 04/26/17. Heart is enlarged. Lungs are clear without acute parenchymal change. Bony structures are grossly intact. Impression: 1. Heart appears enlarged but not well evaluated on portable chest x-ray. 2. Nothing acute is otherwise seen on portable chest x-ray. Diagnostic code #2
--- NOTE | 2017-10-09 08:08 | PCM.PN ---
- General Info Date of Service: 10/09/17 Admission Dx/Problem (Free Text): Admission Diagnosis/Problem Admission Diagnosis/Problem Altered level of consciousness Subjective Update: Follow Up Functional Status: Reports: Pain Controlled. Denies: Tolerating Diet, Ambulating, Urinating - Review of Systems General: Denies: Fever, Chills HEENT: Reports: No Symptoms Pulmonary: Denies: Shortness of Breath Cardiovascular: Denies: Chest Pain, Palpitations, Dyspnea on Exertion, Lightheadedness Gastrointestinal: Denies: Abdominal Pain, Nausea, Vomiting Genitourinary: Reports: No Symptoms Musculoskeletal: Denies: Neck Pain Skin: Denies: Cyanosis, Jaundice, Mottled, Pallor, Diaphoresis, Bruising, Rash Neurological: Denies: Difficulty Walking, Weakness, Gait Disturbance Psychiatric: Denies: Depression, Anxiety, Agitation, Hallucinations Systems Review Comment:: No significant overnight or acute issues. He is comfortable but when engaged he moans and groans. He does not follow simple commands and does not open eyes. He is afebrile w/o leukocytosis. - Patient Data Vitals - Most Recent: Last Vital Signs Temp 37.2 C 10/09/17 02:56 Pulse 112 H 10/09/17 02:59 Resp 22 H 10/09/17 02:56 BP 140/79 10/09/17 02:59 Pulse Ox 92 L 10/09/17 02:59 Weight - Most Recent: 162.794 kg I&O - Last 24 Hours: Intake & Output 10/08/17 10/09/17 10/09/17 22:59 06:59 14:59 Intake Total 1438 Balance 1438 Lab Results Last 24 Hours: Laboratory Results - last 24 hr 10/08/17 10/08/17 10/08/17 Range/Units 15:27 15:29 16:10 WBC (4.23-9.07) K/mm3 RBC (4.63-6.08) M/mm3 Hgb (13.7-17.5) gm/L Hct (40.1-51.0) % MCV (79.0-92.2) fl MCH (25.7-32.2) pg MCHC (32.2-35.5) g/dl RDW Std Deviation (35.1-43.9) fL Plt Count (163-337) K/mm3 MPV (9.4-12.3) fl Neut % (Auto) (34.0-67.9) % Lymph % (Auto) (21.8-53.1) % [place] % (Auto) (5.3-12.2) % Eos % (Auto) (0.8-7.0) Baso % (Auto) (0.1-1.2) % Neut # (Auto) (1.78-5.38) K/mm3 Lymph # (Auto) (1.32-3.57) K/mm3 [place] # (Auto) (0.30-0.82) K/mm3 Eos # (Auto) (0.04-0.54) K/mm3 Baso # (Auto) (0.01-0.08) K/mm3 Neutrophils % (Manual) (40-60) % Band Neutrophils % (0-10) % Lymphocytes % (Manual) (20-40) % Atypical Lymphs % % Monocytes % (Manual) (2-10) % Eosinophils % (Manual) (0.8-7.0) % Basophils % (Manual) (0.2-1.2) Myelocytes % Platelet Estimate Plt Morphology Comment RBC Morph Comment Sodium 136 (136-145) mEq/L Potassium 5.0 (3.5-5.1) mEq/L Chloride 102 (98-107) mEq/L Carbon Dioxide 24 (21-32) mEq/L Anion Gap 15.0 (5-15) BUN 10 (7-18) mg/dL Creatinine 0.9 (0.7-1.3) mg/dL Est Cr Clr Drug Dosing TNP Estimated GFR (MDRD) > 60 (>60) mL/min BUN/Creatinine Ratio 11.1 L (14-18) Glucose 114 H (74-106) mg/dL Hemoglobin A1c (4.50-6.20) % Calcium 9.2 (8.5-10.1) mg/dL Magnesium (1.8-2.4) mg/dl Total Bilirubin 0.8 (0.2-1.0) mg/dL AST 47 H (15-37) U/L ALT 55 (16-63) U/L Alkaline Phosphatase 72 (46-116) U/L Ammonia (11-32) umol/L Troponin I < 0.017 (0.00-0.056) ng/mL C-Reactive Protein (<1.0) mg/dL NT-Pro-B Natriuret Pep (0-125) pg/mL Total Protein 7.5 (6.4-8.2) g/dl Albumin 3.4 (3.4-5.0) g/dl Globulin 4.1 gm/dL Albumin/Globulin Ratio 0.8 L (1-2) Triglycerides (<150) mg/dL Cholesterol (<200) mg/dL LDL Cholesterol Direct (<100) mg/dL HDL Cholesterol (40-59) mg/dL Free T4 (0.76-1.46) ng/dL TSH 3rd Generation 1.251 (0.358-3.74) uIU/mL Urine Color Yellow (Yellow) Urine Appearance Clear (Clear) Urine pH 5.5 (5.0-8.0) Ur Specific [place] > or = 1.030 (1.005-1.030) Urine Protein 2+ H (Negative) Urine Glucose (UA) Negative (Negative) Urine Ketones 1+ H (Negative) Urine Occult Blood Trace-lysed H (Negative) Urine Nitrite Negative (Negative) Urine Bilirubin 1+ H (Negative) Urine Urobilinogen 0.2 (0.2-1.0) Ur Leukocyte Esterase Negative (Negative) Urine RBC 0-5 (0-5) /hpf Urine WBC 0-5 (0-5) /hpf Ur Epithelial Cells 0-5 (0-5) /hpf Amorphous Sediment Many H (NOT SEEN) /hpf Urine Bacteria Moderate H (FEW) /hpf Urine Mucus Not seen (FEW) /hpf Urine Opiates Screen Negative (NEGATIVE) Ur Buprenorphine Scrn Negative (NEGATIVE) Ur Oxycodone Screen Negative (NEGATIVE) Urine Methadone Screen Negative (NEGATIVE) Ur Propoxyphene Screen Negative (NEGATIVE) Ur Barbiturates Screen Negative (NEGATIVE) Ur Tricyclics Screen Negative (NEGATIVE) Ur Phencyclidine Scrn Negative (NEGATIVE) Ur Amphetamine Screen Negative (NEGATIVE) U Methamphetamines Scrn Negative (NEGATIVE) U Benzodiazepines Scrn Negative (NEGATIVE) U Cocaine Metab Screen Negative (NEGATIVE) U Marijuana (THC) Screen Negative (NEGATIVE) Ethyl Alcohol (0.00) gm% 10/08/17 10/08/17 10/08/17 Range/Units 16:10 23:45 23:45 WBC 10.18 H (4.23-9.07) K/mm3 RBC 4.88 (4.63-6.08) M/mm3 Hgb 14.4 (13.7-17.5) gm/L Hct 44.4 (40.1-51.0) % MCV 91.0 (79.0-92.2) fl MCH 29.5 (25.7-32.2) pg MCHC 32.4 (32.2-35.5) g/dl RDW Std Deviation 46.0 H (35.1-43.9) fL Plt Count 240 (163-337) K/mm3 MPV 8.8 L (9.4-12.3) fl Neut % (Auto) (34.0-67.9) % Lymph % (Auto) (21.8-53.1) % [place] % (Auto) (5.3-12.2) % Eos % (Auto) (0.8-7.0) Baso % (Auto) (0.1-1.2) % Neut # (Auto) (1.78-5.38) K/mm3 Lymph # (Auto) (1.32-3.57) K/mm3 [place] # (Auto) (0.30-0.82) K/mm3 Eos # (Auto) (0.04-0.54) K/mm3 Baso # (Auto) (0.01-0.08) K/mm3 Neutrophils % (Manual) 67 H (40-60) % Band Neutrophils % 0 (0-10) % Lymphocytes % (Manual) 20 (20-40) % Atypical Lymphs % 6 % Monocytes % (Manual) 5 (2-10) % Eosinophils % (Manual) 0 L (0.8-7.0) % Basophils % (Manual) 1 (0.2-1.2) Myelocytes % 1 Platelet Estimate Adequate Plt Morphology Comment Normal RBC Morph Comment Normal Sodium (136-145) mEq/L Potassium (3.5-5.1) mEq/L Chloride (98-107) mEq/L Carbon Dioxide (21-32) mEq/L Anion Gap (5-15) BUN (7-18) mg/dL Creatinine (0.7-1.3) mg/dL Est Cr Clr Drug Dosing Estimated GFR (MDRD) (>60) mL/min BUN/Creatinine Ratio (14-18) Glucose (74-106) mg/dL Hemoglobin A1c (4.50-6.20) % Calcium (8.5-10.1) mg/dL Magnesium (1.8-2.4) mg/dl Total Bilirubin (0.2-1.0) mg/dL AST (15-37) U/L ALT (16-63) U/L Alkaline Phosphatase (46-116) U/L Ammonia (11-32) umol/L Troponin I (0.00-0.056) ng/mL C-Reactive Protein (<1.0) mg/dL NT-Pro-B Natriuret Pep 75 (0-125) pg/mL Total Protein (6.4-8.2) g/dl Albumin (3.4-5.0) g/dl Globulin gm/dL Albumin/Globulin Ratio (1-2) Triglycerides (<150) mg/dL Cholesterol (<200) mg/dL LDL Cholesterol Direct (<100) mg/dL HDL Cholesterol (40-59) mg/dL Free T4 (0.76-1.46) ng/dL TSH 3rd Generation (0.358-3.74) uIU/mL Urine Color (Yellow) Urine Appearance (Clear) Urine pH (5.0-8.0) Ur Specific [place] (1.005-1.030) Urine Protein (Negative) Urine Glucose (UA) (Negative) Urine Ketones (Negative) Urine Occult Blood (Negative) Urine Nitrite (Negative) Urine Bilirubin (Negative) Urine Urobilinogen (0.2-1.0) Ur Leukocyte Esterase (Negative) Urine RBC (0-5) /hpf Urine WBC (0-5) /hpf Ur Epithelial Cells (0-5) /hpf Amorphous Sediment (NOT SEEN) /hpf Urine Bacteria (FEW) /hpf Urine Mucus (FEW) /hpf Urine Opiates Screen (NEGATIVE) Ur Buprenorphine Scrn (NEGATIVE) Ur Oxycodone Screen (NEGATIVE) Urine Methadone Screen (NEGATIVE) Ur Propoxyphene Screen (NEGATIVE) Ur Barbiturates Screen (NEGATIVE) Ur Tricyclics Screen (NEGATIVE) Ur Phencyclidine Scrn (NEGATIVE) Ur Amphetamine Screen (NEGATIVE) U Methamphetamines Scrn (NEGATIVE) U Benzodiazepines Scrn (NEGATIVE) U Cocaine Metab Screen (NEGATIVE) U Marijuana (THC) Screen (NEGATIVE) Ethyl Alcohol 0.00 (0.00) gm% 10/08/17 10/09/17 10/09/17 Range/Units 23:45 05:56 05:56 WBC 8.41 (4.23-9.07) K/mm3 RBC 4.61 L (4.63-6.08) M/mm3 Hgb 13.6 L (13.7-17.5) gm/L Hct 41.8 (40.1-51.0) % MCV 90.7 (79.0-92.2) fl MCH 29.5 (25.7-32.2) pg MCHC 32.5 (32.2-35.5) g/dl RDW Std Deviation 45.7 H (35.1-43.9) fL Plt Count 252 (163-337) K/mm3 MPV 8.8 L (9.4-12.3) fl Neut % (Auto) 61.5 (34.0-67.9) % Lymph % (Auto) 26.6 (21.8-53.1) % [place] % (Auto) 10.2 (5.3-12.2) % Eos % (Auto) 0.7 L (0.8-7.0) Baso % (Auto) 0.5 (0.1-1.2) % Neut # (Auto) 5.17 (1.78-5.38) K/mm3 Lymph # (Auto) 2.24 (1.32-3.57) K/mm3 [place] # (Auto) 0.86 H (0.30-0.82) K/mm3 Eos # (Auto) 0.06 (0.04-0.54) K/mm3 Baso # (Auto) 0.04 (0.01-0.08) K/mm3 Neutrophils % (Manual) (40-60) % Band Neutrophils % (0-10) % Lymphocytes % (Manual) (20-40) % Atypical Lymphs % % Monocytes % (Manual) (2-10) % Eosinophils % (Manual) (0.8-7.0) % Basophils % (Manual) (0.2-1.2) Myelocytes % Platelet Estimate Plt Morphology Comment RBC Morph Comment Sodium 143 (136-145) mEq/L Potassium 3.7 (3.5-5.1) mEq/L Chloride 108 H (98-107) mEq/L Carbon Dioxide 27 (21-32) mEq/L Anion Gap 11.7 (5-15) BUN 11 (7-18) mg/dL Creatinine 0.9 (0.7-1.3) mg/dL Est Cr Clr Drug Dosing 101.41 Estimated GFR (MDRD) > 60 (>60) mL/min BUN/Creatinine Ratio 12.2 L (14-18) Glucose 100 (74-106) mg/dL Hemoglobin A1c (4.50-6.20) % Calcium 8.3 L (8.5-10.1) mg/dL Magnesium 1.8 (1.8-2.4) mg/dl Total Bilirubin (0.2-1.0) mg/dL AST (15-37) U/L ALT (16-63) U/L Alkaline Phosphatase (46-116) U/L Ammonia 15 (11-32) umol/L Troponin I (0.00-0.056) ng/mL C-Reactive Protein 1.5 H* (<1.0) mg/dL NT-Pro-B Natriuret Pep (0-125) pg/mL Total Protein (6.4-8.2) g/dl Albumin (3.4-5.0) g/dl Globulin gm/dL Albumin/Globulin Ratio (1-2) Triglycerides 105 (<150) mg/dL Cholesterol 178 (<200) mg/dL LDL Cholesterol Direct 139 H* (<100) mg/dL HDL Cholesterol 28.0 L (40-59) mg/dL Free T4 1.12 (0.76-1.46) ng/dL TSH 3rd Generation (0.358-3.74) uIU/mL Urine Color (Yellow) Urine Appearance (Clear) Urine pH (5.0-8.0) Ur Specific [place] (1.005-1.030) Urine Protein (Negative) Urine Glucose (UA) (Negative) Urine Ketones (Negative) Urine Occult Blood (Negative) Urine Nitrite (Negative) Urine Bilirubin (Negative) Urine Urobilinogen (0.2-1.0) Ur Leukocyte Esterase (Negative) Urine RBC (0-5) /hpf Urine WBC (0-5) /hpf Ur Epithelial Cells (0-5) /hpf Amorphous Sediment (NOT SEEN) /hpf Urine Bacteria (FEW) /hpf Urine Mucus (FEW) /hpf Urine Opiates Screen (NEGATIVE) Ur Buprenorphine Scrn (NEGATIVE) Ur Oxycodone Screen (NEGATIVE) Urine Methadone Screen (NEGATIVE) Ur Propoxyphene Screen (NEGATIVE) Ur Barbiturates Screen (NEGATIVE) Ur Tricyclics Screen (NEGATIVE) Ur Phencyclidine Scrn (NEGATIVE) Ur Amphetamine Screen (NEGATIVE) U Methamphetamines Scrn (NEGATIVE) U Benzodiazepines Scrn (NEGATIVE) U Cocaine Metab Screen (NEGATIVE) U Marijuana (THC) Screen (NEGATIVE) Ethyl Alcohol (0.00) gm% 10/09/17 Range/Units 05:56 WBC (4.23-9.07) K/mm3 RBC (4.63-6.08) M/mm3 Hgb (13.7-17.5) gm/L Hct (40.1-51.0) % MCV (79.0-92.2) fl MCH (25.7-32.2) pg MCHC (32.2-35.5) g/dl RDW Std Deviation (35.1-43.9) fL Plt Count (163-337) K/mm3 MPV (9.4-12.3) fl Neut % (Auto) (34.0-67.9) % Lymph % (Auto) (21.8-53.1) % [place] % (Auto) (5.3-12.2) % Eos % (Auto) (0.8-7.0) Baso % (Auto) (0.1-1.2) % Neut # (Auto) (1.78-5.38) K/mm3 Lymph # (Auto) (1.32-3.57) K/mm3 [place] # (Auto) (0.30-0.82) K/mm3 Eos # (Auto) (0.04-0.54) K/mm3 Baso # (Auto) (0.01-0.08) K/mm3 Neutrophils % (Manual) (40-60) % Band Neutrophils % (0-10) % Lymphocytes % (Manual) (20-40) % Atypical Lymphs % % Monocytes % (Manual) (2-10) % Eosinophils % (Manual) (0.8-7.0) % Basophils % (Manual) (0.2-1.2) Myelocytes % Platelet Estimate Plt Morphology Comment RBC Morph Comment Sodium (136-145) mEq/L Potassium (3.5-5.1) mEq/L Chloride (98-107) mEq/L Carbon Dioxide (21-32) mEq/L Anion Gap (5-15) BUN (7-18) mg/dL Creatinine (0.7-1.3) mg/dL Est Cr Clr Drug Dosing Estimated GFR (MDRD) (>60) mL/min BUN/Creatinine Ratio (14-18) Glucose (74-106) mg/dL Hemoglobin A1c 6.00 (4.50-6.20) % Calcium (8.5-10.1) mg/dL Magnesium (1.8-2.4) mg/dl Total Bilirubin (0.2-1.0) mg/dL AST (15-37) U/L ALT (16-63) U/L Alkaline Phosphatase (46-116) U/L Ammonia (11-32) umol/L Troponin I (0.00-0.056) ng/mL C-Reactive Protein (<1.0) mg/dL NT-Pro-B Natriuret Pep (0-125) pg/mL Total Protein (6.4-8.2) g/dl Albumin (3.4-5.0) g/dl Globulin gm/dL Albumin/Globulin Ratio (1-2) Triglycerides (<150) mg/dL Cholesterol (<200) mg/dL LDL Cholesterol Direct (<100) mg/dL HDL Cholesterol (40-59) mg/dL Free T4 (0.76-1.46) ng/dL TSH 3rd Generation (0.358-3.74) uIU/mL Urine Color (Yellow) Urine Appearance (Clear) Urine pH (5.0-8.0) Ur Specific [place] (1.005-1.030) Urine Protein (Negative) Urine Glucose (UA) (Negative) Urine Ketones (Negative) Urine Occult Blood (Negative) Urine Nitrite (Negative) Urine Bilirubin (Negative) Urine Urobilinogen (0.2-1.0) Ur Leukocyte Esterase (Negative) Urine RBC (0-5) /hpf Urine WBC (0-5) /hpf Ur Epithelial Cells (0-5) /hpf Amorphous Sediment (NOT SEEN) /hpf Urine Bacteria (FEW) /hpf Urine Mucus (FEW) /hpf Urine Opiates Screen (NEGATIVE) Ur Buprenorphine Scrn (NEGATIVE) Ur Oxycodone Screen (NEGATIVE) Urine Methadone Screen (NEGATIVE) Ur Propoxyphene Screen (NEGATIVE) Ur Barbiturates Screen (NEGATIVE) Ur Tricyclics Screen (NEGATIVE) Ur Phencyclidine Scrn (NEGATIVE) Ur Amphetamine Screen (NEGATIVE) U Methamphetamines Scrn (NEGATIVE) U Benzodiazepines Scrn (NEGATIVE) U Cocaine Metab Screen (NEGATIVE) U Marijuana (THC) Screen (NEGATIVE) Ethyl Alcohol (0.00) gm% Kamar Results Last 24 Hours: Microbiology 10/08/17 23:30 Anaerobic Blood Culture - Final Blood - Venous - Lab Draw Med Orders - Current: Current Medications Acetaminophen (Tylenol) 650 mg PO Q4H PRN PRN Reason: Pain (Mild 1-3)/fever Hydrocodone Bitart/Acetaminophen ([place] 325-5 Mg) 1 tab PO Q4H PRN PRN Reason: Pain (moderate 4-6) Albuterol/Ipratropium (Duoneb 3.0-0.5 Mg/3 Ml) 3 ml NEB Q4H PRN PRN Reason: Shortness Of Breath/wheezing Bisacodyl (Dulcolax) 5 mg PO DAILY PRN PRN Reason: Constipation Ciprofloxacin (Ciloxan 0.3% Ophth Soln) 0 ml EARBOTH DAILY BECK Dexamethasone (Maxidex 0.1% Ophth Susp) 0 ml .XX DAILY [facility] Docusate Sodium (Colace) 100 mg PO BID BECK Enoxaparin Sodium (Lovenox) 40 mg SUBCUT Q12H [facility] Folic Acid (Folic Acid) 1 mg PO DAILY [facility] Hydralazine HCl (Apresoline) 20 mg IVPUSH Q4H PRN PRN Reason: Hypertension Hydromorphone HCl (Dilaudid) 1 mg IVPUSH Q4H PRN PRN Reason: pain Sodium Chloride (Normal Saline) 1,000 mls @ 150 mls/hr IV ASDIRECTED BECK Last Admin: 10/09/17 02:50 Dose: 150 mls/hr Promethazine HCl 12.5 mg/ (Sodium Chloride) 50.5 mls @ 100 mls/hr IV Q6H PRN PRN Reason: Nausea/Vomiting Ketorolac Tromethamine (Toradol) 30 mg IVPUSH Q6H PRN PRN Reason: Pain Last Admin: 10/09/17 02:51 Dose: 30 mg Lorazepam (Ativan) 2 mg IVPUSH Q4H PRN PRN Reason: Seizures Lorazepam (Ativan) 1 mg IV Q6H PRN PRN Reason: Anxiety Magnesium Sulfate (Pharmacy To Dose - Magnesium Replacement) 1 dose .XX ASDIRECTED [facility] Metoprolol Tartrate (Lopressor) 5 mg IVPUSH Q4H PRN PRN Reason: Tachycardia Modafinil (Provigil) 200 mg PO DAILY@0700 [facility] Last Admin: 10/09/17 06:38 Dose: Not Given Mometasone Furoate/Formoterol Fumar (Dulera 200-5 Mcg) 0 puff IH BID [facility] Neomycin/Polymyxin/Bacitracin (Neosporin Oint) 0 gm TOP BID [facility] Non-Formulary Medication (Hydrochlorothiazide/Losartan) 1 tab PO DAILY [facility] Non-Formulary Medication (Losartan) 50 mg PO DAILY [facility] Ondansetron HCl (Zofran) 4 mg IV Q6H PRN PRN Reason: Nausea/Vomiting Pantoprazole Sodium (Protonix) 40 mg PO DAILY [facility] Paroxetine HCl (Paxil) 20 mg PO DAILY [facility] Polyethylene Glycol (Miralax) 17 gm PO DAILY PRN PRN Reason: Constipation Potassium Chloride (Klor-Con M20) 20 meq PO DAILY [facility] Potassium Chloride (Pharmacy To Dose - Potassium Replacement) 1 dose .XX ASDIRECTED [facility] Sodium Chloride (Saline Flush) 10 ml FLUSH ASDIRECTED PRN PRN Reason: Keep Vein Open Last Admin: 10/08/17 15:22 Dose: 10 ml Discontinued Medications Sodium Chloride (Normal Saline) 1,000 mls @ 250 mls/hr IV ASDIRECTED [facility] Last Admin: 10/08/17 15:21 Dose: 250 mls/hr Senna/Docusate Sodium (Senna Plus) 1 tab PO BID PRN PRN Reason: Constipation - Exam General: Obtunded HEENT: Pupils Equal, Pupils Reactive Neck: Trachea Midline, No JVD, No Thyromegaly, Other (short and thick) Lungs: Clear to Auscultation, Normal Respiratory Effort Cardiovascular: Regular Rate, Regular Rhythm GI/Abdominal Exam: Normal Bowel Sounds, Soft, Non-Tender, No Organomegaly, No Distention, No Abnormal Bruit (Male) Exam: Deferred Back Exam: Normal Inspection Extremities: Normal Inspection, Normal Range of Motion, Non-Tender, No Pedal Edema, Normal Capillary Refill Peripheral Pulses: 3+: Posterior Tibial (L), Posterior Tibial (R), Dorsalis Pedis (L), Dorsalis Pedis (R) Skin: Warm, Dry, Intact, Rash Neurological: Reflexes Equal Bilateral, Sensation Intact, Other (He moans and grunts). No: Strength Equal Bilateral Psy/Mental Status: Other (respond to painful stimuli and moves legs and hands). No: Alert - Problem List Review Problem List Initiated/Reviewed/Updated: Yes - My Orders Last 24 Hours: My Active Orders 10/08/17 21:45 LORazepam [Ativan] 2 mg IVPUSH Q4H PRN Magnesium Rep Pharmacy to Dose [Pharmacy to Dose - Magnesium Replacement] 1 dose .XX ASDIRECTED Metoprolol Tartrate [Lopressor] 5 mg IVPUSH Q4H PRN Potassium Rep Pharmacy to Dose [Pharmacy to Dose - Potassium Replacement] 1 dose .XX ASDIRECTED hydrALAZINE [Apresoline] 20 mg IVPUSH Q4H PRN 10/08/17 21:46 Height and Weight [RC] 04 Intake and Output [RC] 04,16 VTE/DVT Education [RC] 10,22 Vital Signs [RC] 03,09,15,21 Acetaminophen [Tylenol] 650 mg PO Q4H PRN Acetaminophen/HYDROcodone [Waldo 325-5 MG] 1 tab PO Q4H PRN Albuterol/Ipratropium [DuoNeb 3.0-0.5 MG/3 ML] 3 ml NEB Q4H PRN Bisacodyl [Dulcolax] 5 mg PO DAILY PRN LORazepam [Ativan] 1 mg IV Q6H PRN Ondansetron [Zofran] 4 mg IV Q6H PRN Polyethylene Glycol 3350 [MiraLAX] 17 gm PO DAILY PRN Promethazine [Phenergan] 12.5 mg Sodium Chloride 0.9% [Normal Saline] 50 ml IV Q6H Resuscitation Status Routine 10/08/17 21:48 Consult to Case Management [CONS] Routine Consult to Research Biologist [CONS] Routine Consult to Quality Engineering Manager [CONS] Routine OT Evaluation and Treatment [CONS] Routine PT Evaluation and Treatment [CONS] Routine 10/08/17 22:02 Consult to Physical Therapy [PT Evaluation and Treatment] [CONS] Routine 10/08/17 22:20 Ketorolac [Toradol] 30 mg IVPUSH Q6H PRN 10/08/17 22:21 HYDROmorphone [Dilaudid] 1 mg IVPUSH Q4H PRN 10/08/17 23:45 VITAMIN D 25-HYROXY (D2, D3) [REF] Stat 10/08/17 Dinner Regular Diet [DIET] 10/09/17 07:00 Modafinil [Provigil] 200 mg PO DAILY@0700 10/09/17 09:00 Bacitracin/Neomycin/Polymyxin [Neosporin Oint] 0 gm TOP BID Ciprofloxacin [Ciloxan 0.3% Ophth Soln] 0 ml EARBOTH DAILY Dexamethasone [Maxidex 0.1% Ophth Susp] 0 ml .XX DAILY Docusate Sodium [Colace] 100 mg PO BID Enoxaparin [Lovenox] 40 mg SUBCUT Q12H Folic Acid 1 mg PO DAILY Hydrochlorothiazide/Losartan 1 tab PO DAILY Losartan 50 mg PO DAILY Mometasone/Formoterol [Dulera 200-5 MCG] 0 puff IH BID PARoxetine [Paxil] 20 mg PO DAILY Pantoprazole [ProTONIX] 40 mg PO DAILY Potassium Chloride [Klor-Con M20] 20 meq PO DAILY 10/10/17 05:11 BASIC METABOLIC PANEL,BMP [CHEM] AM MAGNESIUM [CHEM] AM 10/11/17 05:11 BASIC METABOLIC PANEL,BMP [CHEM] AM MAGNESIUM [CHEM] AM - Plan Plan:: Assessment/Plan: Acute: AMS - Unclear in etiology - Chemistry unremarkable; UDS and UA negative - CXR and Head CT scan negative for acute abnormal findings - Vitals Stable; 98% O2 on sat on RA - Hold Vit D and Doxy (can cause Intra-cranial HTN) - Attempted to give stimulant - he spit it out - WBC-normal; afebrile; CRP -1.5; D-Dimer 0.56; Troponin x 2 wnl, - Brain MR this AM - negative for acute abnormal findings - Neck MRA- suboptimal due to artifacts - DDx: Encephalitis/Meningitis Right Thigh Wound - On Doxy-hold for now - Continue topical antibiotic and PT wound care Probable HANNY - BMI 56.5; was 36 < than a year ago - Advised LSM - He needs sleep study Morbid Obesity - Worsening - BMI now 56.5 - Dietary consult - Would not recommend Belviq due to hx/o valvulopathy High Fall Risk due to Morbid Obesity Dyslipidemia - HDL 28 and DLD 139 - Low dose statin and AHA diet - Dietary consult Chronic: Allergic Rhinits HTN HLD Asthma IBD Anxiety Psoriasis [place] Palsy Valvular Heart Disease Plan: He is essentially about the same as yesterday Routine AM Labs Aspiration and Fall Precautions PT/OT/Dietary Consult DVT/GI PPx: Lovenox SubQ/PPI SW/CM for d/c planning Code status: 1 Updated parents at bedside about morning labs and tests results.
[2017-10-09] MEDS: Bacitracin/Neomycin/Polymyxin B Oint 15 GM Tube TOP SCH ×2 (08:37→21:53)
[2017-10-09] MEDS: Enoxaparin 40 MG/0.4 ML Syringe SUBCUT SCH ×2 (08:38→21:46)
[2017-10-09] MEDS: Ciprofloxacin 0.3% Ophth Soln 2.5 ML Bottle EARBOTH SCH (08:39)
[2017-10-09] MEDS: Dexamethasone 0.1% Ophth Susp 5 ML Bottle SCH (08:39)
[2017-10-09] MEDS ORDERED: Formoterol/Mometasone 200-5 MCG 8.8 GM Inhaler IH SCH (09:00)
[2017-10-09] MEDS ORDERED: Non-Formulary Medication 1 Each (Hydrochlorothiazide/Losartan 1 TAB) PO SCH (09:00)
[2017-10-09] MEDS: Budesonide 0.5 MG/2 ML Neb Susp NEB SCH ×2 (09:05→21:34)
[2017-10-09] MEDS ORDERED: LORazepam 2 MG/ML SDV IVPUSH PRN (10:02)
[2017-10-09] MEDS: Docusate Sodium 100 MG Cap PO SCH ×2 (10:10→20:40)
[2017-10-09] MEDS: Folic Acid 1 MG Tab PO SCH (10:10)
[2017-10-09] MEDS: PARoxetine 20 MG Tab PO SCH (10:11)
[2017-10-09] MEDS: Potassium Chloride 20 MEQ Tab.ER PO SCH (10:11)
[2017-10-09] MEDS: Pantoprazole 40 MG Tab.CR PO SCH (10:11)
[2017-10-09] MEDS ORDERED: Sodium Chloride 0.9% 250 ML IV SCH (10:19)
[2017-10-09] MEDS: Losartan 25 MG Tab PO SCH (10:33)
[2017-10-09] MEDS ORDERED: LORazepam 2 MG/ML SDV IVPUSH ONE (11:00)
[2017-10-09] MEDS ORDERED: Sodium Chloride 0.9% 10 ML Syringe FLUSH PRN (12:14)
[2017-10-09] MEDS ORDERED: Gadobenate Dimeglumine 529 MG/ML 20 ML SDV IVPUSH ONE (12:14)
[2017-10-09] MEDS ORDERED: Thiamine 200 MG in Sodium Chloride 0.9% 100 ML IV ONE (13:10)
--- NOTE | 2017-10-09 14:15 | PCM.SN ---
- Free Text/Narrative Note: 10/09/17 2-215pm- Iv started 22 guage right upper chest area. Flushed easily and secured. Nakul PARRISH
--- NOTE | 2017-10-09 14:41 | MR ---
MRI angiogram Technique: [id number] MRA angiogram sequence was obtained centered to the [place]. MIP images were obtained in multiple projection. Comparison: No previous intracranial MR angiogram of the brain. Findings: Distal vertebral vessels and basilar artery are unremarkable. Distal internal carotid arteries and carotid siphon appear within normal limits. Middle cerebral arteries and anterior cerebral arteries as well as posterior cerebral arteries appear patent. No aneurysm is identified. Impression: 1. No abnormality is seen on MR angiogram centered to the [place]. Diagnostic code #1
--- NOTE | 2017-10-09 14:41 | MR ---
MRI brain (without and with contrast) Technique: T1 sagittal; T2, T2 FLAIR, T1 and diffusion axial; post-gadolinium T1 axial image also obtained. T1 FLAIR coronal images were obtained without and with contrast. Comparison: Prior head CT study of 10/08/17 and prior MRI brain of 05/26/16. Findings: Ventricles along with basal cisterns and sulci over the convexities appear within normal limits for the patient's age. No acute diffusion abnormalities are seen. Retention cyst is noted within the inferior left maxillary sinus. No abnormal signal is seen within the brain parenchyma. No midline shift or mass effect is seen. No abnormal areas of enhancement are seen. Impression: 1. Incidental retention cyst within the inferior left maxillary sinus. 2. MRI study of the brain is otherwise unremarkable. Diagnostic code #2
--- NOTE | 2017-10-09 14:41 | MR ---
MR angiogram of neck: This study is severely suboptimal with the contrast injected portion. The [id number]-nw-[id number] images show significant artifact without gross areas of stenosis in the area of the carotid bulbs. Very limited study. No charge should be made for this exam. Diagnostic code #3
--- NOTE | 2017-10-09 16:59 | PCM.SN ---
- Free Text/Narrative Note: After discussing further test results with parents at bedside, they requested if possible he can be transferred to [facility] for neurological services. Informed parents I will do all my best to get him there. All our tests were benign so far, so I told them I will make phone calls to [facility] for further guidance and they okayed it. Spoke to Dr. Carpenter, director decision support neurologist in [place]. After, I discussed case with him, he recommended ABG and LP. Patient's ABG is fairly normal. His LP is pending since he received anticoagulation this morning for DVT prophylaxis. His neurological status remains unchanged. I went back and informed parents about our game plan and they agreed with it. And iff no changes in Arsalan's mentation tomorrow, we will try to send him east as requested.
[2017-10-09] MEDS ORDERED: Simvastatin 20 MG Tab PO SCH (21:00)
--- NOTE | 2017-10-09 21:52 | PCM.SN ---
- Free Text/Narrative Note: 10/09/[id number] Was requested to perform lumbar puncture earlier today. Patient on lovenox. Wait 12 hours which was 2037 tonight. Consent signed prior by family. Chart reviewed. Patient diaphoretic- not responsive - only moans and groans. Eyes closed. Positioned right lateral decubitus with 4 assists. Legs brought up to abdomen. as much as possible and head flexed. Sterile procedure- betadine times 3- sterile drape. Lidocaine 1% skin local. 22 g 3.5 quincke needle used. Switched to 5 inch. Multiple attempts to locate CSF. Opening pressures were 36. Returns were pink tinged. Only 2 cc were collected as unable to relocate needle to CSF again. Patient condition unchanged during procedure. Tolerated fairly well. No lovenox for 12 hours. Bandaid applied. Repositioned supine. Nakul PARRISH
[2017-10-09] MEDS ORDERED: Vancomycin 2 GM in Sodium Chloride 0.9% 500 ML IV SCH (22:00)
[2017-10-09] MEDS ORDERED: cefTRIAXone 2 GM in Sodium Chloride 0.9% 100 ML IV SCH (22:00)
[2017-10-09] MEDS ORDERED: Vancomycin 500 MG SDV IV SCH (22:00)
[2017-10-09] MEDS ORDERED: Dexamethasone 4 MG/ML SDV IVPUSH SCH (22:15)
[2017-10-09] MEDS ORDERED: VANCOMYCIN IV ONE (22:15)
[2017-10-09] MEDS ORDERED: SODIUM CHLORIDE 0.9% IV ONE (22:15)
[2017-10-09] MEDS ORDERED: Sodium Chloride 0.9% 50 ML ONE (23:07)
[2017-10-09] MEDS ORDERED: Atropine 0.4 MG/ML SDV IVPUSH ONE (23:16)
[2017-10-09] MEDS ORDERED: Atropine 0.4 MG/ML 20 ML MDV IVPUSH ONE (23:19)
[2017-10-09] MEDS: SODIUM CHLORIDE 0.9% IV SCH (23:29)
[2017-10-09] MEDS: DEXAMETHASONE IV SCH (23:29)
[2017-10-10] MEDS: Vancomycin 2 GM in Sodium Chloride 0.9% 500 ML IV SCH ×3 (00:20→09:43)
[2017-10-10] MEDS: Budesonide 0.5 MG/2 ML Neb Susp NEB SCH (05:14)
[2017-10-10] MEDS: Ketorolac 30 MG/ML SDV IVPUSH PRN (05:18)
[2017-10-10] MEDS: DEXAMETHASONE IV SCH ×2 (05:22→12:59)
[2017-10-10] MEDS: SODIUM CHLORIDE 0.9% IV SCH ×2 (05:22→12:59)
[2017-10-10] MEDS ORDERED: Vancomycin 2 GM in Sodium Chloride 0.9% 500 ML IV SCH (06:00)
[2017-10-10] MEDS: Modafinil 200 MG Tab PO SCH (06:08)
[2017-10-10] MEDS: Dexamethasone 0.1% Ophth Susp 5 ML Bottle SCH (09:47)
[2017-10-10] MEDS: Ciprofloxacin 0.3% Ophth Soln 2.5 ML Bottle EARBOTH SCH (09:48)
[2017-10-10] MEDS: Enoxaparin 40 MG/0.4 ML Syringe SUBCUT SCH (09:51)
[2017-10-10] MEDS: Docusate Sodium 100 MG Cap PO SCH (10:08)
[2017-10-10] MEDS: Folic Acid 1 MG Tab PO SCH (10:09)
[2017-10-10] MEDS: PARoxetine 20 MG Tab PO SCH (10:09)
[2017-10-10] MEDS: Bacitracin/Neomycin/Polymyxin B Oint 15 GM Tube TOP SCH (10:09)
[2017-10-10] MEDS: Pantoprazole 40 MG Tab.CR PO SCH (10:09)
[2017-10-10] MEDS: Potassium Chloride 20 MEQ Tab.ER PO SCH (10:09)
[2017-10-10] MEDS: Losartan 25 MG Tab PO SCH (10:09)
[2017-10-10 11:56] VITALS: BP 97/77
--- NOTE | 2017-10-10 14:04 | PCM.SN ---
- Free Text/Narrative Note: Called [facility] and was told initially this morning they don't have beds but will let me know as soon as beds are available. This afternoon, we received a phone call from Janie at [facility] and she was able to get me through with Drs. Carpenter and Gracia. Immediately, we called and updated patient's mom and informed her about the transfer plan. Patient will leave here via ground as soon as transportation arrives.
--- NOTE | 2017-10-10 14:28 | PCM.DCSUM1 ---
Discharge Summary - Hospital Course Brief History: This is a 37 yo white male with past medical hx/o Allergic Rhinitis, HTN, HLD, Asthma, IBD, Anxiety, Psoriasis, Harrold Palsy, Valvular Heart Disease, MR and Morbid Obesity with BMI of 56.5 who comes in with complaints of AMS. Patient unable to provide pertinent information so HPI was primarily provided by family at bedside. Patient carries a hx/o developmental delays. He is familiar to me from previous admission. He comes to ED today due to not being himself. He was seen yesterday here in ED for allergic reaction and was diagnosed with cellulitis. He was given benadryl and doxy for medical management. However, he did not improve. His initial workup in emergency department shows a fairly unremarkable chemistry with exception of slightly elevated glucose of 114 and AST of 47. His UA and UDS are both negative. Cervical C-spine report reads mild diffuse degenerative change. Nothing acute is appreciated. Head CT scan report reads no acute intra-cranial abnormality is seen. Patient is being admitted for AMS. He is full code. - Discharge Data Discharge Date: 10/10/17 Discharge Disposition: Home, Self-Care 01 Condition: Fair - Discharge Diagnosis/Problem(s) (1) Meningitis SNOMED Code(s): 4551784 ICD Code: G03.9 - MENINGITIS, UNSPECIFIED Status: Acute (2) Encephalitis and encephalomyelitis, unspecified SNOMED Code(s): 31147546 ICD Code: G04.90 - ENCEPHALITIS AND ENCEPHALOMYELITIS, UNSPECIFIED Status: Acute (3) Altered level of consciousness SNOMED Code(s): 7750140 ICD Code: R40.4 - TRANSIENT ALTERATION OF AWARENESS Status: Acute (4) Cellulitis of right leg SNOMED Code(s): 711225163 ICD Code: L03.115 - CELLULITIS OF RIGHT LOWER LIMB Status: Acute (5) Morbid obesity SNOMED Code(s): 616646549 ICD Code: E66.01 - MORBID (SEVERE) OBESITY DUE TO EXCESS CALORIES Status: Acute - Patient Summary/Data Operative Procedure(s) Performed: Lumbar Puncture Complications: None Consults: Consultations 10/08/17 21:48 Consult to Case Management [CONS] Routine Consult to Body Builder Apprentice [CONS] Routine Consult to [facility] Trimmer [CONS] Routine OT Evaluation and Treatment [CONS] Routine PT Evaluation and Treatment [CONS] Routine 10/08/17 22:02 Consult to Physical Therapy [PT Evaluation and Treatment] [CONS] Routine 10/09/17 11:02 Consult to Spiritual Care [CONS] Routine Labs Pending at D/C: LP studies Recommended Follow-up Testing/Procedures: None Planned Operative Procedure(s) after DC: None Hospital Course: Patient was primarily admitted for medical evaluation of AMS. All work diagnostic work up to include CBC, UA, CXR and blood cultures were negative. His head CT scan as well as brain MR and Neck MRA were negative fro acute abnormal findings. However his CSF study so far suggest he may have bacterial meningitis/encephalitis. We sought neurology consultation on this hospitalization for further help but his family request upper level of care. Therefore, he was transferred to [facility] for continued care. He will be under the services of Gracia Hurst, hospitalist attending. - Patient Instructions Diet: Usual Diet as Tolerated Activity: As Tolerated Driving: Do Not Drive Showering/Bathing: May Shower Notify Provider of: Fever, Increased Pain, Swelling and Redness, Nausea and/or Vomiting Other/Special Instructions: -Transfer to [facility] under the services of Dr. Fagan , Hospitalist - Discharge Plan Home Medications: Home Meds Fluticasone/Salmeterol [Advair 250-50 Diskus] 1 - 2 puff INH BID 11/05/16 [ History] Folic Acid 1 mg PO DAILY 11/05/16 [History] PARoxetine [Paxil] 20 mg PO DAILY 11/05/16 [History] Cholecalciferol (Vitamin D3) [Vitamin D] 50,000 units PO WEEKLY 11/06/16 [ History] Docusate Sodium [Colace] 100 mg PO BID 11/06/16 [History] Omeprazole 20 mg PO DAILY 11/06/16 [History] Doxycycline [Vibramycin] 100 mg PO BID #20 cap 10/07/17 [Rx] Ciprofloxacin/Dexamethasone [Ciprodex Otic Susp] 4 drop EARBOTH DAILY 10/08/17 [ History] Losartan [Cozaar] 50 mg PO DAILY 10/08/17 [History] Potassium Chloride 20 meq PO DAILY 10/08/17 [History] Referrals: Joe Saab MD [Primary Care Provider] - - Discharge Summary/Plan Comment DC Time >30 min.: No (35 mins) Discharge Summary/Plan Comment: Transfer to [facility] Info Date of Service: 10/10/17 Admission Dx/Problem (Free Text: Admission Diagnosis/Problem Admission Diagnosis/Problem Altered level of consciousness Subjective Update: Follow Up Functional Status: Reports: Pain Controlled, Tolerating Diet, Ambulating, Urinating, New Symptoms - Review of Systems General: Denies: Fever, Chills HEENT: Reports: No Symptoms Pulmonary: Denies: Shortness of Breath Cardiovascular: Denies: Chest Pain, Palpitations Gastrointestinal: Denies: Abdominal Pain, Nausea, Vomiting Genitourinary: Reports: No Symptoms Musculoskeletal: Reports: No Symptoms Skin: Reports: Diaphoresis. Denies: Cyanosis, Mottled, Bruising, Rash Neurological: Denies: Seizure Psychiatric: Denies: Depression, Anxiety, Agitation, Hallucinations Systems Review Comment: Moans/Groans and Grunts - Patient Data Vitals - Most Recent: Last Vital Signs Temp 37.3 C 10/10/17 08:19 Pulse 81 10/10/17 08:19 Resp 22 H 10/10/17 08:19 BP 97/77 10/10/17 11:54 Pulse Ox 97 10/10/17 08:19 Weight - Most Recent: 162.25 kg I&O - Last 24 hours: Intake & Output 10/09/17 10/10/17 10/10/17 22:59 06:59 14:59 Intake Total 3468 1104 Balance 3468 1104 Lab Results - Last 24 hrs: Laboratory Results - last 24 hr 10/08/17 10/09/17 10/09/17 Range/Units 23:45 16:39 21:10 WBC (4.23-9.07) K/mm3 RBC (4.63-6.08) M/mm3 Hgb (13.7-17.5) gm/L Hct (40.1-51.0) % MCV (79.0-92.2) fl MCH (25.7-32.2) pg MCHC (32.2-35.5) g/dl RDW Std Deviation (35.1-43.9) fL Plt Count (163-337) K/mm3 MPV (9.4-12.3) fl Neut % (Auto) (34.0-67.9) % Lymph % (Auto) (21.8-53.1) % Parker % (Auto) (5.3-12.2) % Eos % (Auto) (0.8-7.0) Baso % (Auto) (0.1-1.2) % Neut # (Auto) (1.78-5.38) K/mm3 Lymph # (Auto) (1.32-3.57) K/mm3 Parker # (Auto) (0.30-0.82) K/mm3 Eos # (Auto) (0.04-0.54) K/mm3 Baso # (Auto) (0.01-0.08) K/mm3 Manual Slide Review Puncture Site Rt radial ABG pH 7.34 L (7.35-7.45) ABG pCO2 45.3 H (35.0-45.0) mmHg ABG pO2 68.0 L (80.0-100.0) mmHg ABG HCO3 23.9 (22.0-26.0) meq/L ABG O2 Saturation 95.0 L (96.0-97.0) % ABG Base Excess -1.5 (-2-2.0) A-a Gradient 9 mmHg O2 Delivery Device Room air FiO2 21.00 (21.00-100.00) % Sodium (136-145) mEq/L Potassium (3.5-5.1) mEq/L Chloride (98-107) mEq/L Carbon Dioxide (21-32) mEq/L Anion Gap (5-15) BUN (7-18) mg/dL Creatinine (0.7-1.3) mg/dL Est Cr Clr Drug Dosing mL/min Estimated GFR (MDRD) (>60) mL/min BUN/Creatinine Ratio (14-18) Glucose (74-106) mg/dL Calcium (8.5-10.1) mg/dL Magnesium (1.8-2.4) mg/dl C-Reactive Protein (<1.0) mg/dL Vitamin D 25-Hydroxy 27 L (30-100) ng/mL CSF Glucose 62.0 (40-70) mg/dl CSF Total Protein 309.8 H (15-45) mg/dl 10/10/17 10/10/17 Range/Units 06:37 06:37 WBC 9.77 H (4.23-9.07) K/mm3 RBC 5.17 (4.63-6.08) M/mm3 Hgb 15.4 (13.7-17.5) gm/L Hct 46.9 (40.1-51.0) % MCV 90.7 (79.0-92.2) fl MCH 29.8 (25.7-32.2) pg MCHC 32.8 (32.2-35.5) g/dl RDW Std Deviation 45.9 H (35.1-43.9) fL Plt Count 227 (163-337) K/mm3 MPV 9.1 L (9.4-12.3) fl Neut % (Auto) 84.1 H (34.0-67.9) % Lymph % (Auto) 12.0 L (21.8-53.1) % Parker % (Auto) 2.3 L (5.3-12.2) % Eos % (Auto) 0.1 L (0.8-7.0) Baso % (Auto) 0.3 (0.1-1.2) % Neut # (Auto) 8.22 H (1.78-5.38) K/mm3 Lymph # (Auto) 1.17 L (1.32-3.57) K/mm3 Parker # (Auto) 0.22 L (0.30-0.82) K/mm3 Eos # (Auto) 0.01 L (0.04-0.54) K/mm3 Baso # (Auto) 0.03 (0.01-0.08) K/mm3 Manual Slide Review Normal smear Puncture Site ABG pH (7.35-7.45) ABG pCO2 (35.0-45.0) mmHg ABG pO2 (80.0-100.0) mmHg ABG HCO3 (22.0-26.0) meq/L ABG O2 Saturation (96.0-97.0) % ABG Base Excess (-2-2.0) A-a Gradient mmHg O2 Delivery Device FiO2 (21.00-100.00) % Sodium 141 (136-145) mEq/L Potassium 4.2 (3.5-5.1) mEq/L Chloride 106 (98-107) mEq/L Carbon Dioxide 26 (21-32) mEq/L Anion Gap 13.2 (5-15) BUN 10 (7-18) mg/dL Creatinine 0.9 (0.7-1.3) mg/dL Est Cr Clr Drug Dosing 101.41 mL/min Estimated GFR (MDRD) > 60 (>60) mL/min BUN/Creatinine Ratio 11.1 L (14-18) Glucose 129 H (74-106) mg/dL Calcium 8.8 (8.5-10.1) mg/dL Magnesium 2.0 (1.8-2.4) mg/dl C-Reactive Protein 0.7 (<1.0) mg/dL Vitamin D 25-Hydroxy (30-100) ng/mL CSF Glucose (40-70) mg/dl CSF Total Protein (15-45) mg/dl SUZANNA Results - Last 24 hrs: Microbiology 10/09/17 21:10 Gram Stain - Final Cerebral Spinal Fluid 10/08/17 23:20 Aerobic Blood Culture - Preliminary Blood - Venous NO GROWTH AFTER 1 DAY Anaerobic Blood Culture - Preliminary NO GROWTH AFTER 1 DAY 10/08/17 23:30 Aerobic Blood Culture - Preliminary Blood - Venous - Lab Draw NO GROWTH AFTER 1 DAY Anaerobic Blood Culture - Final Med Orders - Current: Current Medications Acetaminophen (Tylenol) 650 mg PO Q4H PRN PRN Reason: Pain (Mild 1-3)/fever Hydrocodone Bitart/Acetaminophen ([place] 325-5 Mg) 1 tab PO Q4H PRN PRN Reason: Pain (moderate 4-6) Albuterol/Ipratropium (Duoneb 3.0-0.5 Mg/3 Ml) 3 ml NEB Q4H PRN PRN Reason: Shortness Of Breath/wheezing Last Admin: 10/09/17 09:05 Dose: 3 ml Bisacodyl (Dulcolax) 5 mg PO DAILY PRN PRN Reason: Constipation Budesonide (Pulmicort) 0.5 mg NEB BIDRT [facility] Last Admin: 10/10/17 05:14 Dose: 0.5 mg Ciprofloxacin (Ciloxan 0.3% Ophth Soln) 0 ml EARBOTH DAILY [facility] Last Admin: 10/10/17 09:48 Dose: 4 drop Dexamethasone (Maxidex 0.1% Ophth Susp) 0 ml .XX DAILY [facility] Last Admin: 10/10/17 09:47 Dose: 4 drop Docusate Sodium (Colace) 100 mg PO BID [facility] Last Admin: 10/10/17 10:08 Dose: Not Given Enoxaparin Sodium (Lovenox) 40 mg SUBCUT Q12H [facility] Last Admin: 10/10/17 09:51 Dose: 40 mg Folic Acid (Folic Acid) 1 mg PO DAILY [facility] Last Admin: 10/10/17 10:09 Dose: Not Given Hydralazine HCl (Apresoline) 20 mg IVPUSH Q4H PRN PRN Reason: Hypertension Hydromorphone HCl (Dilaudid) 1 mg IVPUSH Q4H PRN PRN Reason: pain Promethazine HCl 12.5 mg/ (Sodium Chloride) 50.5 mls @ 100 mls/hr IV Q6H PRN PRN Reason: Nausea/Vomiting Dexamethasone 25 mg/ Sodium (Chloride) 52.5 mls @ 50 mls/hr IV Q6H [facility] Stop: 10/10/17 17:47 Last Admin: 10/10/17 12:59 Dose: 50 mls/hr Vancomycin HCl 2 gm/ Sodium (Chloride) 500 mls @ 166.667 mls/hr IV Q8H [facility] Last Admin: 10/10/17 09:43 Dose: 166.667 mls/hr Ceftriaxone Sodium 2 gm/ (Dextrose/Water) 100 mls @ 100 mls/hr IV Q12H [facility] Last Admin: 10/10/17 08:45 Dose: 100 mls/hr Acyclovir 1,000 mg/ Sodium (Chloride) 270 mls @ 270 mls/hr IV Q8H [facility] Last Admin: 10/10/17 13:58 Dose: 270 mls/hr Ketorolac Tromethamine (Toradol) 30 mg IVPUSH Q6H PRN PRN Reason: Pain Last Admin: 10/10/17 05:18 Dose: 30 mg Lorazepam (Ativan) 2 mg IVPUSH Q4H PRN PRN Reason: Seizures Lorazepam (Ativan) 1 mg IV Q6H PRN PRN Reason: Anxiety Losartan Potassium (Cozaar) 50 mg PO DAILY [facility] Last Admin: 10/10/17 10:09 Dose: Not Given Magnesium Sulfate (Pharmacy To Dose - Magnesium Replacement) 1 dose .XX ASDIRECTED [facility] Metoprolol Tartrate (Lopressor) 5 mg IVPUSH Q4H PRN PRN Reason: Tachycardia Modafinil (Provigil) 200 mg PO DAILY@0700 [facility] Last Admin: 10/10/17 06:08 Dose: Not Given Neomycin/Polymyxin/Bacitracin (Neosporin Oint) 0 gm TOP BID [facility] Last Admin: 10/10/17 10:09 Dose: 1 applic Ondansetron HCl (Zofran) 4 mg IV Q6H PRN PRN Reason: Nausea/Vomiting Pantoprazole Sodium (Protonix) 40 mg PO DAILY [facility] Last Admin: 10/10/17 10:09 Dose: Not Given Paroxetine HCl (Paxil) 20 mg PO DAILY [facility] Last Admin: 10/10/17 10:09 Dose: Not Given Polyethylene Glycol (Miralax) 17 gm PO DAILY PRN PRN Reason: Constipation Potassium Chloride (Klor-Con M20) 20 meq PO DAILY [facility] Last Admin: 10/10/17 10:09 Dose: Not Given Potassium Chloride (Pharmacy To Dose - Potassium Replacement) 1 dose .XX ASDIRECTED [facility] Simvastatin (Zocor) 20 mg PO BEDTIME [facility] Last Admin: 10/09/17 20:40 Dose: Not Given Sodium Chloride (Saline Flush) 10 ml FLUSH ASDIRECTED PRN PRN Reason: Keep Vein Open Last Admin: 10/08/17 15:22 Dose: 10 ml Vancomycin HCl (Pharmacy To Dose - Vancomycin) 1 dose .XX ASDIRECTED [facility] Discontinued Medications Atropine Sulfate (Atropine) 0.5 mg IVPUSH ONETIME ONE Stop: 10/09/17 23:17 Last Admin: 10/09/17 23:33 Dose: Not Given Atropine Sulfate (Atropine) 0.5 mg IVPUSH ONETIME ONE Stop: 10/09/17 23:20 Dexamethasone (Dexamethasone) 65 mg IVPUSH Q12H [facility] Stop: 10/10/17 10:16 Last Admin: 10/09/17 22:51 Dose: Not Given Gadobenate Dimeglumine (Multihance) 20 ml IVPUSH ONETIME ONE Stop: 10/09/17 12:15 Last Admin: 10/09/17 13:11 Dose: 20 ml Sodium Chloride (Normal Saline) 1,000 mls @ 250 mls/hr IV ASDIRECTED [facility] Last Admin: 10/08/17 15:21 Dose: 250 mls/hr Sodium Chloride (Normal Saline) 1,000 mls @ 150 mls/hr IV ASDIRECTED [facility] Last Admin: 10/09/17 17:11 Dose: 150 mls/hr Sodium Chloride (Normal Saline) 250 mls @ 500 mls/hr IV .BOLUS BECK Stop: 10/09/17 16:00 Thiamine HCl 200 mg/ Sodium (Chloride) 102 mls @ 204 mls/hr IV ONETIME ONE Stop: 10/09/17 13:11 Last Admin: 10/09/17 14:40 Dose: 204 mls/hr Ceftriaxone Sodium 2 gm/ (Sodium Chloride) 100 mls @ 100 mls/hr IV Q12H [facility] Last Admin: 10/09/17 23:29 Dose: 100 mls/hr Vancomycin HCl 2 gm/ Sodium (Chloride) 500 mls @ 166.667 mls/hr IV Q8H BECK Vancomycin HCl 2 gm/ Sodium (Chloride) 500 mls @ 166.667 mls/hr IV Q8H [facility] Last Admin: 10/10/17 00:47 Dose: Not Given Sodium Chloride (Normal Saline) Confirm Administered Dose 50 mls @ as directed .ROUTE .STK-MED ONE Stop: 10/09/17 23:08 Last Admin: 10/09/17 23:31 Dose: 50 mls/hr Ceftriaxone Sodium 2 gm/ (Dextrose/Water) 100 mls @ 100 mls/hr IV Q12H [facility] Last Admin: 10/10/17 07:41 Dose: Not Given Lorazepam (Ativan) 2 mg IVPUSH ONETIME ONE Stop: 10/09/17 11:01 Last Admin: 10/09/17 20:35 Dose: Not Given Lorazepam (Ativan) 2 mg IVPUSH ONETIME PRN PRN Reason: procedural sedation Stop: 10/09/17 16:00 Mometasone Furoate/Formoterol Fumar (Dulera 200-5 Mcg) 0 puff IH BID [facility] Non-Formulary Medication (Hydrochlorothiazide/Losartan) 1 tab PO DAILY [facility] Last Admin: 10/09/17 13:42 Dose: Not Given Physostigmine Salicylate (Physostigmine) 0.5 mg IVPUSH ONETIME ONE Stop: 10/09/17 22:18 Last Admin: 10/09/17 23:19 Dose: 0.5 mg Senna/Docusate Sodium (Senna Plus) 1 tab PO BID PRN PRN Reason: Constipation Sodium Chloride (Saline Flush) 10 ml FLUSH ONETIME PRN PRN Reason: Keep Vein Open Stop: 10/09/17 14:00 Last Admin: 10/09/17 13:11 Dose: 10 ml Vancomycin HCl (Vancomycin) 2,381.355 mg 15 mg/kg (2381.355 mg) IV Q8H [facility] Last Admin: 10/09/17 22:23 Dose: Not Given - Exam General: Reports: No Acute Distress, Other (Morbidly Obese) HEENT: Reports: Pupils Equal Neck: Reports: Trachea Midline, No JVD, No Thyromegaly Lungs: Reports: Normal Respiratory Effort, Decreased Breath Sounds Cardiovascular: Reports: Regular Rate, Regular Rhythm GI/Abdominal Exam: Normal Bowel Sounds, Soft, Non-Tender, No Organomegaly, No Distention, No Abnormal Bruit (Male) Exam: Deferred Rectal (Males) Exam: Deferred Back Exam: Reports: Normal Inspection, Decreased Range of Motion Extremities: Normal Inspection, Normal Range of Motion, Non-Tender, No Pedal Edema, Normal Capillary Refill Skin: Reports: Warm, Dry, Intact Neurological: Reports: No New Focal Deficit Psy/Mental Status: Reports: Other Physical Findings Comments:: Patient is partially in awake state. He moans/groans/grunts and respond to painful stimuli. However he does not open his eyes. He moves his lower extremities when stimulated. However he does not engage and unable to follow simple commands.
[2017-10-10] MEDS ORDERED: Sodium Chloride 0.9% 1,000 ML IV SCH (14:45)
== END 2017-10-10 15:07 | disposition home or self-care (01) | DRG 95 ==
LOC: JD.ED 13:58 → JD.MS 20:03
PROVIDERS: ADMIT Internal Medicine; ATTEND Internal Medicine
PROC: 009U3ZX Drainage of Spinal Canal, Percutaneous Approach, Diagnostic (ICD-10-PCS; principal; 2017-10-08)
DX: R41.82 Altered mental status, unspecified (principal); M25.512 Pain in left shoulder; M25.511 Pain in right shoulder; G04.2 Bacterial meningoencephalitis and meningomyelitis, not elsewhere classified; L03.115 Cellulitis of right lower limb; K58.9 Irritable bowel syndrome, unspecified; L03.90 Cellulitis, unspecified; Z68.43 Body mass index [BMI] 50.0-59.9, adult; E66.01 Morbid (severe) obesity due to excess calories; E78.5 Hyperlipidemia, unspecified; J45.909 Unspecified asthma, uncomplicated; F41.9 Anxiety disorder, unspecified; L40.9 Psoriasis, unspecified; G51.0 Bell's palsy; M50.30 Other cervical disc degeneration, unspecified cervical region; I11.0 Hypertensive heart disease with heart failure; G47.33 Obstructive sleep apnea (adult) (pediatric); I35.9 Nonrheumatic aortic valve disorder, unspecified; I50.9 Heart failure, unspecified; Z79.899 Other long term (current) drug therapy; Z88.8 Allergy status to other drugs, medicaments and biological substances; Z91.040 Latex allergy status; Z91.018 Allergy to other foods; Z91.013 Allergy to seafood
CPT/HCPCS: 36415; 70450; 71045; 72125; 80053; 80306; 81001; 83880; 84443; 84484; 93005; 96360; 96361; 99285; J7040 ×2; J7050; 36600; 62270; 70544; 70544-26; 70549; 70549-26; 70553; 70553-26; 80048; 80061; 82140; 82306; 82803; 82945; 83036; 83735; 84157; 84439; 85007; 85025; 85027; 85379; 86140; 87040; 87070; 87205; 94640; 97161-GP; 97167-GO; 97530-GO; A9270-GY; A9577; G0480; J0133; J0696; J1100; J1650; J1885; J3370; J3411; J7030; J7060